=== PATIENT | male | born 1950 | race African-American/Black ===

== ENCOUNTER 2016-09-30 09:02 | Observation (INO) | payer MEDICARE, MEDICAID ==
[2016-09-30] MEDS ORDERED: Aspirin Low Dose CHEW TAB* 81 MG PO ONE (09:14)
--- NOTE | 2016-09-30 09:43 | RAD ---
INDICATION: Chest pain. COMPARISON: Comparison is made with a prior chest x-ray study from April 27, 2014. TECHNIQUE: A portable view of the chest was obtained. FINDINGS: The patient is status post coronary artery bypass surgery. The heart is within normal limits in size. The lungs are underinflated. There is a small infiltrate at the medial right lung base. No pleural effusion is seen. IMPRESSION: EXPIRATORY EXAM, SMALL RIGHT BASILAR INFILTRATE.
[2016-09-30 09:47] LABS: Hematocrit 34 % (42-52); Hemoglobin 11.1 g/dl (14.0-18.0); Mean Corpuscular HGB Conc 33 g/dl (31-36); Mean Corpuscular Hemoglobin 30 pg (27-31); Mean Corpuscular Volume 92 fL (80-94); Mean Platelet Volume 8 um3 (7.4-10.4); Red Blood Count 3.66 10^6/ul (4.0-5.4); Red Cell Distribution Width 15 % (10.5-15); White Blood Count 14.3 10^3/ul (3.5-10.8)
[2016-09-30 10:05] LABS: ALT 14 U/L (7-52); AST 25 U/L (13-39); Albumin 4.1 g/dL (3.2-5.2); Alkaline Phosphatase 50 U/L (34-104); Anion Gap 7 mmol/L (2-11); BUN/Creatinine Ratio 9.5 (8-20); Blood Urea Nitrogen 10 mg/dL (6-24); CO2 Carbon Dioxide 24 mmol/L (22-32); Calcium 9.5 mg/dL (8.6-10.3); Chloride 104 mmol/L (101-111); EGFR African American 91.2 (>60); EGFR Non-African American 70.9 (>60); Globulin 3.7 g/dL (2-4); Glucose 115 mg/dL (70-100); Potassium 3.4 mmol/L (3.5-5.0); Sodium 135 mmol/L (133-145); Total Protein 7.8 g/dL (6.4-8.9); Troponin I 0.01 ng/mL (<0.04)
--- NOTE | 2016-09-30 10:26 | RAD ---
INDICATION: Dizziness. COMPARISON: There are no prior studies available for comparison. TECHNIQUE: Contiguous axial sections of the brain were obtained from the skull base to the vertex without contrast. FINDINGS: The ventricles, cisterns and sulci are enlarged consistent with diffuse atrophy. There is mild decreased attenuation present in the subcortical white matter in the right temporal lobe insula. No other focal abnormalities or mass effect are seen. There is no evidence for hemorrhage. No significant focal osseous abnormality is seen. The visualized portion of the paranasal sinuses and mastoid air cells appear clear. IMPRESSION: SMALL AREA OF DECREASED DENSITY IN THE SUBCORTICAL WHITE MATTER IN THE RIGHT TEMPORAL LOBE INSULA MOST CONSISTENT WITH A SUBACUTE INFARCT OR CHRONIC SMALL VESSEL ISCHEMIC CHANGES. CONSIDER MR IMAGING FOR FURTHER EVALUATION.
[2016-09-30 11:02] LABS: Alcohol < 10 mg/dL (<10)
[2016-09-30] MEDS ORDERED: Acetaminophen TAB* 325 MG PO ONE (11:41)
[2016-09-30] MEDS ORDERED: Heparin VIAL(*) 5000 UNITS/ML VIAL (FIVE THOUSAND) ONE (14:03)
[2016-09-30] MEDS: Heparin VIAL(*) 5000 UNITS/ML VIAL (FIVE THOUSAND) SUBCUT SCH ×2 (14:20→21:13)
[2016-09-30] MEDS: Amoxicillin/Clavulanate TAB* 875 MG PO SCH ×2 (14:20→21:02)
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
[2016-09-30] MEDS ORDERED: Nicotine GUM* 2 MG PO PRN (16:54)
[2016-09-30] MEDS ORDERED: Nicotine Inhaler* 10 MG AMP INH PRN (16:54)
--- NOTE | 2016-09-30 17:28 | RAD ---
HISTORY: Subacute infarct noted on CT COMPARISONS: Head CT dated September 30, 2016 TECHNIQUE: The following sequences were obtained of the head: Sagittal T1-weighted images, axial T2-weighted images, axial FLAIR images, axial susceptibility weighted images, axial T1-weighted images. Additionally, axial diffusion-weighted images were obtained with calculated apparent diffusion coefficients. FINDINGS: HEMORRHAGE/INFARCT: There is no hemorrhage or acute infarct. MASSES/SHIFT: There is no mass or shift. EXTRA-AXIAL SPACES/MENINGES: There are no extra-axial fluid collections. SULCI AND VENTRICLES: The sulci and ventricles are normal in size and position for the patient's stated age. CEREBRUM: There is right frontal and insular encephalomalacia corresponding to the area of decreased attenuation noted on CT consistent with remote infarct. There are scattered foci of elevated T2/FLAIR signal in the periventricular and subcortical white matter. BRAINSTEM: There is elevated T2/FLAIR signal in the pontine white matter. CEREBELLUM: There are no focal parenchymal abnormalities. The cerebellar tonsils are normal in size and position. SELLA: The sella is normal. PINEAL: The pineal region is clear. CP ANGLE/TEMPORAL BONES: The labyrinthine structures are grossly normal. VESSELS: Normal flow-voids are noted within the visualized vertebral vasculature. DIFFUSION ABNORMALITIES: There are no diffusion abnormalities. PARANASAL SINUSES/MASTOIDS: The paranasal sinuses are clear. ORBITS: The orbits are unremarkable. BONES AND SOFT TISSUE: No bone or soft tissue abnormalities are noted. OTHER: None IMPRESSION: 1. 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 2. CHRONIC SMALL VESSEL ISCHEMIC CHANGES. 3. NO RESTRICTED DIFFUSION TO SUGGEST ACUTE OR SUBACUTE INFARCT.
[2016-09-30] MEDS ORDERED: LORazepam TAB(*) 1 MG PO SCH (18:00)
[2016-09-30] MEDS: Gabapentin CAP(*) 300 MG PO SCH (18:04)
[2016-09-30] MEDS: Nicotine PATCH 14 MG/24 HR* PATCH TRANSDERM SCH (18:04)
[2016-09-30 18:30] LABS: Urine Bilirubin Negative (Negative); Urine Glucose Negative (Negative); Urine Nitrite Negative (Negative)
[2016-09-30 18:38] LABS: Benzodiazepine Urine Screen None Detected (None Detect)
[2016-09-30] MEDS ORDERED: Gabapentin CAP(*) 300 MG PO SCH (21:00)
[2016-09-30] MEDS ORDERED: FLUoxetine CAP* 20 MG PO SCH (21:00)
[2016-09-30] MEDS ORDERED: Nortriptyline CAP* 25 MG PO SCH (21:00)
[2016-09-30] MEDS: Thiamine TAB* 100 MG TAB PO SCH (21:01)
[2016-09-30] MEDS: Folic Acid TAB* 1 MG PO SCH (21:07)
[2016-09-30] MEDS: busPIRone TAB* 10 MG PO SCH (21:07)
[2016-09-30 22:22] LABS: C Reactive Protein 6.72 mg/L (< 5.00)
[2016-10-01] MEDS: Heparin VIAL(*) 5000 UNITS/ML VIAL (FIVE THOUSAND) SUBCUT SCH ×2 (05:44→13:19)
[2016-10-01 06:34] LABS: Hematocrit 31 % (42-52); Hemoglobin 10.5 g/dl (14.0-18.0); Mean Corpuscular HGB Conc 34 g/dl (31-36); Mean Corpuscular Hemoglobin 31 pg (27-31); Mean Corpuscular Volume 91 fL (80-94); Mean Platelet Volume 8 um3 (7.4-10.4); Red Blood Count 3.39 10^6/ul (4.0-5.4); Red Cell Distribution Width 14 % (10.5-15); White Blood Count 8.5 10^3/ul (3.5-10.8)
[2016-10-01] MEDS: Nicotine PATCH 14 MG/24 HR* PATCH TRANSDERM SCH (08:23)
[2016-10-01] MEDS: Gabapentin CAP(*) 300 MG PO SCH ×2 (08:24→13:18)
[2016-10-01] MEDS: Folic Acid TAB* 1 MG PO SCH (08:25)
[2016-10-01] MEDS: busPIRone TAB* 10 MG PO SCH (08:25)
[2016-10-01] MEDS: Thiamine TAB* 100 MG TAB PO SCH (08:25)
[2016-10-01] MEDS ORDERED: Aspirin TAB* 325 MG PO SCH (09:00)
[2016-10-01] MEDS ORDERED: FLUoxetine CAP* 20 MG PO SCH (09:00)
[2016-10-01] MEDS ORDERED: Montelukast Sodium TAB* 10 MG PO SCH (09:00)
[2016-10-01] MEDS ORDERED: Multivitamins/Minerals TAB PO SCH (09:00)
--- NOTE | 2016-10-01 11:47 | RAD ---
Edited for charges. INDICATION: Chest pain, previous coronary artery bypass. Hypertension, elevated cholesterol, tobacco use. COMPARISON: March 22, 2015 TECHNIQUE: 10.160 mCi of Tc-99m Myoview were administered IV. SPECT images of the heart were obtained. Later on the same day, under the direction of Dr. Lane, the patient was given an IV injection of a pharmacologic stress agent. Subsequently, the patient was given an IV injection of 10.160 mCi Tc-99m Myoview. SPECT images of the heart were obtained and a gated wall motion study was performed. FINDINGS: Gated wall motion images were obtained at stress and demonstrate wall motion to be within normal limits. The calculated left ventricular ejection fraction is 49 % at stress. Estimated LEFT ventricular end diastolic volume is 97 mL. TID 1.12. Based on review of the attenuation corrected and non corrected images there is a grossly fixed myocardial perfusion defect involving the apex and apical anterior segments. No stress-induced reversible ischemia evident. IMPRESSION: 1. Small to moderate infarct involving the apex and apical anterior segments grossly unchanged in size compared with the 2015 exam however there is no persistent penumbra of reversible ischemia. 2. No stress-induced ischemia demonstrated. 3. Mild LEFT ventricular dysfunction with estimated ejection fraction of 49% with interval decrease from 55% previously.. ASSESSMENT: INTERMEDIATE RISK. Based on imaging criteria from ACC/AHA 2002 Guideline Update for the Management of Patients With Chronic Stable Angina Table 23. Noninvasive Risk Stratification. MTDD
[2016-10-01] MEDS ORDERED: Ketorolac INJ* 60 MG/2 ML VIAL IV PUSH ONE (12:24)
[2016-10-01] MEDS ORDERED: Regadenoson* 0.4 MG/5 ML SYRINGE ONE (12:31)
[2016-10-01] MEDS ORDERED: Ketorolac INJ* 30 MG/ML 1 ML VIAL IV ONE (13:00)
[2016-10-01 14:43] VITALS: BP 120/67
[2016-10-01] MEDS ORDERED: Lidocaine PATCH 5%* 1 PATCH TRANSDERM SCH (15:00)
[2016-10-01] MEDS ORDERED: Lidocaine Patch REMOVE* 1 NOTE MISC SCH (21:00)
[2016-10-01] MEDS ORDERED: Nicotine Patch Removal NOTE PATCH OFF SCH (21:00)
--- NOTE | 2016-10-02 03:26 | DS ---
DISCHARGE SUMMARY: DATE OF ADMISSION: 09/30/16 DATE OF DISCHARGE: 10/01/16 PRIMARY CARE PROVIDER: To be established is Dr. Bernal. DISCHARGING PROVIDER: ELIDA Cage SUPERVISING PHYSICIAN: DO Jennifer Wild (DICTATED BY ELIDA CAGE) PRIMARY DISCHARGE DIAGNOSES: 1. Chest pain with history of CABG - fixed defect appreciated on nuclear stress test without reversibility. 2. Alcohol and drug abuse - toxicology screen positive for cocaine and opioids. 3. Back pain - acute complaint, but a chronic finding. SECONDARY DISCHARGE DIAGNOSES: 1. History of hepatitis C, unsure of treatment history. 2. Hypertension. 3. Hyperlipidemia. 4. Anxiety and depression. DISCHARGE MEDICATIONS: 1. Fluoxetine 40 mg p.o. b.i.d. 2. Fluticasone nasal spray 2 sprays in both nostrils once daily. 3. Gabapentin 300 mg with breakfast and lunch and 600 mg at bedtime. 4. Lidocaine patch 5% to be placed transdermally once daily. 5. Mobic 15 mg p.o. daily. 6. Singulair 10 mg p.o. daily. 7. Nortriptyline 75 mg p.o. at bedtime. 8. Ranitidine 150 mg p.o. twice daily. 9. BuSpar 10 mg p.o. twice daily. Medication changes: 1. Start Lidoderm patch. HOSPITAL IMAGIN. Chest x-ray shows what appears to be an expiratory film, questionable small right basilar infiltrate. 2. CT of the brain shows small area of decreased density in the subcortical white matter in the right temporal lobe insulin most consistent with a subacute infarct or chronic small vessel ischemic changes. Recommend MRI for further imaging. 3. MRI of the brain shows right frontal encephalomalacia consistent with a remote infarct as well as chronic small vessel ischemic changes. No evidence of acute or subacute infarct. 4. Nuclear stress test shows a [id number] infarct at the apex and apical anterior segments unchanged in size from 2015 stress testing and no evidence of reversible ischemia. 5. EKG shows a right bundle branch block unchanged from prior with an underlying sinus rhythm. HOSPITAL COURSE: This is a 66-year-old gentleman with a history of coronary artery disease, status post CABG as well as a long history of drug and alcohol abuse as well as hepatitis C, hypertension, hyperlipidemia, anxiety and depression who is seen by Dr. Lane for cardiology care and was subsequently referred for an outpatient stress test due to recent complaints of intermittent chest pain. The patient arrived for his stress test and a clinical assessment team call was made from the admissions area as the patient was complaining of dizziness and feeling of presyncope. The patient admitted to using cocaine the night prior and sounds to be awake the majority of the night. Urine toxicology screen was positive for both cocaine and opioids. The patient was subsequently admitted to observation status with plans for stress test the following morning. Initial labs demonstrated a moderate leukocytosis with a white blood cell count of 14,300. Chemistries were unremarkable with the exception of mild hypokalemia with potassium of 3.4. Initial chest x-ray was of poor quality, but possibly suggestive of a small right basilar infiltrate. There was concern about possible aspiration pneumonia, but the patient was not complaining of any fevers, recent cough or shortness of breath. He received one dose of Augmentin. Initial CT scan of his brain was questionable for possible subacute infarct. Followup MRI demonstrated what was likely an old infarct and chronic small vessel ischemic changes, but nothing acute. Serial troponins remained negative. The patient underwent nuclear stress test, which showed an old fixed defect without any reversibility. No changes when compared to prior nuclear study from 2015. The patient did not complain of any chest pain during his hospital stay. The morning of discharge the patient began to complain of severe back pain. This is a chronic complaint for him. He does have documented stenosis on prior CT scan. He was able to ambulate into the hospital and was not complaining of back pain overnight and was ambulating to the bathroom without difficulty. The patient was requesting narcotic pain medications to help to control his pain. He was quite upset when these were denied to him due to evidence of polysubstance abuse. The patient was subsequently given an IV dose of Toradol as well as a lidocaine patch placed. Asked the Physical Therapy to please help with evaluating his ability to ambulate. He initially refused to work with Physical Therapy and later agreed but attempted to throw himself to the floor during evaluation. After thorough discussion with the patient in regards to the appropriateness of treating a chronic medical condition during an acute hospital stay, the patient eventually agreed to be discharged from the hospital. He was set up with a new primary care provider and was encouraged to discuss pain management further with that individual. Strongly advised against using narcotics for management of his back pain due to his obvious substance abuse history. The patient declined any need for substance abuse treatment or counseling. DISPOSITION: The patient is being discharged from the hospital to home. He has been set up with a new primary care provider. Appointment made for next week, 10/06/16, at [address] Bernal with the [facility]. Recommend followup imaging of his back including an MRI as well as referral to Pain Management as the patient may benefit from epidural injections or appropriate nerve blocks. No changes made to the patient's cardiac medications. Stress test was reviewed with press assistant and feeder, Dr. Lane, prior to discharge. ELIDA CAGE CC: Dr. Bernal; Dr. Lane* [id number]/[facility] #: [id number] MTDD
== END 2016-10-01 16:50 | disposition home or self-care (01) ==
LOC: ED 09:02 → MEDTELE 11:00
PROVIDERS: ADMIT Internal Medicine; ATTEND Hospitalist
DX: R07.9 Chest pain, unspecified (principal); Z95.1 Presence of aortocoronary bypass graft; F10.10 Alcohol abuse, uncomplicated; F11.10 Opioid abuse, uncomplicated; M54.9 Dorsalgia, unspecified; I10 Essential (primary) hypertension; I25.10 Atherosclerotic heart disease of native coronary artery without angina pectoris; F32.9 Major depressive disorder, single episode, unspecified; F41.9 Anxiety disorder, unspecified; Z79.899 Other long term (current) drug therapy; Z88.8 Allergy status to other drugs, medicaments and biological substances; F17.210 Nicotine dependence, cigarettes, uncomplicated
CPT/HCPCS: 36415; 70450; 70551; 71010; 78452; 80053; 80307; 80320; 81003; 83605; 84484; 85025; 86140; 93005; 93017; 96360; 96361; 96372; 99284; A9270-GY; A9502; G0378; G0480; G8978-GP-CM; G8979-GP-CI; G8980-GP-CM; J1644; J1885; J2785

== ENCOUNTER 2017-01-13 11:00 | Day surgery (SDC) | payer MEDICARE, MEDICAID ==
[~2017-01-13 11:00] MED LIST: Acetaminophen TAB* 325 MG PO PRN; Buffered Lidocaine 0.9% SYRIN* 5 ML/SYR SYRINGE INTRADERM ONE
[2017-01-13] MEDS ORDERED: Buffered Lidocaine 0.9% SYRIN* 5 ML/SYR SYRINGE ONE (12:50)
[2017-01-13] MEDS ORDERED: Lidocaine 2% EPI 1:200000 MPF* 20 ML VIAL ONE (13:34)
[2017-01-13] MEDS ORDERED: Neomycin/Polymy/Dex OPTH.SUSP* MAXITROL 0.1% 5 ML ONE (13:34)
[2017-01-13] MEDS ORDERED: Proparacaine 0.5% OPHTH.SOL* 15 ML BTL ONE (13:34)
[2017-01-13] MEDS ORDERED: Phenylephrine 2.5% OPTH.SOL* 2 ML BTL ONE (13:34)
[2017-01-13] MEDS ORDERED: Lidocaine 1% MPF* 2 ML VIAL ONE (13:34)
[2017-01-13] MEDS ORDERED: Flurbiprofen 0.03% OPTH.SOL* 2.5 ML BTL ONE (13:34)
[2017-01-13] MEDS ORDERED: acetaZOLAMIDE TAB* 250 MG ONE (13:34)
[2017-01-13] MEDS ORDERED: Povidone Iodine 5% OPTH* 30 ML BTL ONE (13:34)
[2017-01-13] MEDS ORDERED: Cyclopentolate 1% OPTH.SOL* 2 ML BTL ONE (13:34)
[2017-01-13] MEDS ORDERED: Midazolam* 1 MG/ML 2 ML VIAL (2 MG) ONE ×2 (13:48→14:08)
[2017-01-13 14:32] VITALS: BP 135/76
--- NOTE | 2017-01-14 02:37 | OP ---
DATE OF OPERATION: 01/13/17 - MERGED WITH [facility] DATE OF : 52 SURGEON: Korey Quiroz MD PREOPERATIVE DIAGNOSIS: Cataract, right eye. POSTOPERATIVE DIAGNOSIS: Cataract, right eye. OPERATIVE PROCEDURE: Phacoemulsification, right eye with IOL. DESCRIPTION OF PROCEDURE: The patient was brought to the operating room after being given 1/2% Alcaine with epinephrine drops in the preoperative area. The eye was prepped and draped in the usual sterile fashion. Sterile drape and eyelid speculum were placed. Again, topical 1/2% Alcaine with epinephrine was given. A paracentesis incision was made at the 9 o'clock position with the No.75 blade. Clear cornea incision 2.2 x 2.2-mm was created at the 12 o'clock position starting at the anterior limbus using the 2.2-mm keratome. The anterior chamber was irrigated with 0.4 mL of 1% non-preservative intracameral lidocaine and filled with DisCoVisc. A capsulorrhexis was completed using the cystotome and the Utrata forceps. Hydrodissection was performed with balanced salt solution. The lens nucleus was removed with the Phacoemulsification handpiece without incident. Cortex was removed with the irrigation-aspiration handpiece. The capsular bag was re-inflated using DisCoVisc and an [id number] implant was inserted with the shooter. Pupil was only 3 mm, so a Malyugin ring was used to dilate the pupil prior to capsulorrhexis, removed after insertion of the lens. The irrigation-aspiration handpiece was used to remove all residual DisCoVisc. The eye was refilled with balanced salt solution and the wound checked and found to be watertight. Topical Maxitrol drops were given. Indication for complex cataract surgery: Iris abnormalities requiring pupil dilation device. [id number]/[facility] #: [id number] [facility] CENTERRoel
== END 2017-01-13 14:46 | disposition home or self-care (01) ==
LOC: OREAST 11:00
PROVIDERS: ATTEND Specialist
DX: H25.811 Combined forms of age-related cataract, right eye (principal); Q13.2 Other congenital malformations of iris; I10 Essential (primary) hypertension; Z95.1 Presence of aortocoronary bypass graft; F17.210 Nicotine dependence, cigarettes, uncomplicated; D64.9 Anemia, unspecified; B19.20 Unspecified viral hepatitis C without hepatic coma
CPT/HCPCS: A9270-GY; J2250; V2632

== ENCOUNTER 2017-01-20 13:15 | Day surgery (SDC) | payer OTHER, MEDICAID ==
[2017-01-20] MEDS ORDERED: Neomycin/Polymy/Dex OPTH.SUSP* MAXITROL 0.1% 5 ML ONE (15:01)
[2017-01-20] MEDS ORDERED: Phenylephrine 2.5% OPTH.SOL* 2 ML BTL ONE (15:01)
[2017-01-20] MEDS ORDERED: Cyclopentolate 1% OPTH.SOL* 2 ML BTL ONE (15:01)
[2017-01-20] MEDS ORDERED: Lidocaine 1% MPF* 2 ML VIAL ONE (15:01)
[2017-01-20] MEDS ORDERED: Povidone Iodine 5% OPTH* 30 ML BTL ONE (15:01)
[2017-01-20] MEDS ORDERED: Flurbiprofen 0.03% OPTH.SOL* 2.5 ML BTL ONE (15:01)
[2017-01-20] MEDS ORDERED: acetaZOLAMIDE TAB* 250 MG ONE (15:01)
[2017-01-20] MEDS ORDERED: Buffered Lidocaine 0.9% SYRIN* 5 ML/SYR SYRINGE ONE (15:02)
[2017-01-20] MEDS ORDERED: Proparacaine 0.5% OPHTH.SOL* 15 ML BTL ONE (15:02)
[2017-01-20] MEDS ORDERED: Lidocaine 1.5% EPI 1:200,000* 30 ML SDV ONE (15:02)
[2017-01-20] MEDS ORDERED: Midazolam* 1 MG/ML 2 ML VIAL (2 MG) ONE (15:22)
[2017-01-20 16:09] VITALS: BP 136/76
--- NOTE | 2017-01-21 13:10 | OP ---
OPERATIVE REPORT:* ADDENDUM: The indication for complex cataract surgery was pupillary abnormalities requiring a pupil dilation device. [id number]/[facility] #: [id number] MTDD
--- NOTE | 2017-01-21 13:10 | OP ---
ADDENDUM NOW INCLUDED ON THIS REPORT DATE OF OPERATION: 01/20/17 - [facility] DATE OF : 52 SURGEON: Korey Quiroz M.D. PREOPERATIVE DIAGNOSIS: Cataract, left eye. POSTOPERATIVE DIAGNOSIS: Cataract, left eye. OPERATIVE PROCEDURE: Phacoemulsification, left eye with IOL. DESCRIPTION OF PROCEDURE: The patient was brought to the operating room after being given 1/2% Alcaine with epinephrine drops in the preoperative area. The eye was prepped and draped in the usual sterile fashion. Sterile drape and eyelid speculum were placed. Again, topical 1/2% Alcaine with epinephrine was given. A paracentesis incision was made at the 3 o'clock position with the No.75 blade. Clear cornea incision 2.2 x 2.2-mm was created at the 6 o'clock position starting at the anterior limbus using the 2.2-mm keratome. The anterior chamber was irrigated with 0.4 mL of 1% non-preservative intracameral lidocaine and filled with DisCoVisc. A capsulorrhexis was completed using the cystotome and the Utrata forceps. Hydrodissection was performed with balanced salt solution. The lens nucleus was removed with the Phacoemulsification handpiece without incident. Cortex was removed with the irrigation-aspiration handpiece. The capsular bag was re-inflated using DisCoVisc and an [id number] implant was inserted with the shooter. Malyugin ring was used to dilate the pupil because the pupil was very small prior to capsulorrhexis, removed after insertion of lens. The irrigation-aspiration handpiece was used to remove all residual DisCoVisc. The eye was refilled with balanced salt solution and the wound checked and found to be watertight. Topical Maxitrol drops were given. ADDENDUM: The indication for complex cataract surgery was pupillary abnormalities requiring a pupil dilation device. [id number]/[facility] #: [id number] - [id number]/[facility] #: [id number] [facility]PITALRoel
== END 2017-01-20 14:20 | disposition home or self-care (01) ==
LOC: OREAST 13:15
PROVIDERS: ATTEND Specialist
DX: H25.812 Combined forms of age-related cataract, left eye (principal); Z96.1 Presence of intraocular lens; F32.9 Major depressive disorder, single episode, unspecified; K21.9 Gastro-esophageal reflux disease without esophagitis; F41.9 Anxiety disorder, unspecified; R20.0 Anesthesia of skin; I10 Essential (primary) hypertension; J45.909 Unspecified asthma, uncomplicated; F17.210 Nicotine dependence, cigarettes, uncomplicated; M54.9 Dorsalgia, unspecified; G89.29 Other chronic pain; I25.10 Atherosclerotic heart disease of native coronary artery without angina pectoris; Z85.048 Personal history of other malignant neoplasm of rectum, rectosigmoid junction, and anus; Z86.73 Personal history of transient ischemic attack (TIA), and cerebral infarction without residual deficits; Z88.5 Allergy status to narcotic agent; Z95.1 Presence of aortocoronary bypass graft
CPT/HCPCS: A9270-GY; J2250; V2632

== ENCOUNTER 2017-08-10 08:11 | Observation (INO) | payer MEDICARE, MEDICAID ==
--- NOTE | 2017-07-23 16:46 | RAD ---
INDICATION: Presurgical chest x-ray in a smoker COMPARISON: Chest x-ray dated September 30, 2006 TECHNIQUE: PA and lateral views of the chest were obtained. FINDINGS: The heart and mediastinum are normal in size and contour. The lungs are grossly clear. There is no evidence of large pleural effusion. Visualized bones are normal for the patient's age. There is no radiographic evidence of free air beneath the diaphragm IMPRESSION: No radiographic evidence of acute cardiopulmonary disease.
[~2017-08-10 08:11] MED LIST changes: -Acetaminophen TAB* 325 MG PO PRN
[2017-08-10] MEDS ORDERED: Buffered Lidocaine 0.9% SYRIN* 5 ML/SYR SYRINGE ONE (08:24)
[2017-08-10] MEDS ORDERED: ceFAZolin 2 GM PREMIX (*) 2 GM/50 ML BAG IVPB ONE (08:24)
[2017-08-10] MEDS ORDERED: Lidocaine 1% MPF wEPI 200,000* 30 ML SDV ONE (10:00)
[2017-08-10] MEDS ORDERED: Ondansetron INJ* 2 MG/ML VIAL IV PRN ×2 (10:01→12:45)
[2017-08-10] MEDS ORDERED: Thrombin 5,000 UNITS* 1 APPLIC KIT - topical use - TOPICAL ONE (10:01)
[2017-08-10] MEDS ORDERED: Levalbuterol 0.63MG/3ML NEB* UNIT OF USE INH PRN (10:01)
[2017-08-10] MEDS ORDERED: Naloxone* 0.4 MG/ML 1 ML VIAL IV PRN (10:01)
[2017-08-10] MEDS ORDERED: fentaNYL* 50 MCG/ML 2 ML VIAL (100 MCG VIAL) IV PRN (10:01)
[2017-08-10] MEDS ORDERED: Acetaminophen TAB* 325 MG PO PRN (10:01)
[2017-08-10] MEDS ORDERED: Bacitracin IV* 50,000 UNITS INJ ONE (10:01)
[2017-08-10] MEDS ORDERED: Famotidine IV* 10 MG/ML 2 ML (20 mg) ONE (10:05)
[2017-08-10] MEDS ORDERED: Midazolam* 1 MG/ML 2 ML VIAL (2 MG) ONE (10:05)
[2017-08-10] MEDS ORDERED: fentaNYL* 50 MCG/ML 2 ML VIAL (100 MCG VIAL) ONE ×2 (10:05→13:49)
[2017-08-10] MEDS ORDERED: Rocuronium* 10 MG/ML VIAL ONE (11:12)
[2017-08-10] MEDS ORDERED: Lidocaine 2% PF * 5 ML VIAL ONE (11:42)
[2017-08-10] MEDS ORDERED: Ondansetron INJ* 2 MG/ML VIAL ONE (11:42)
[2017-08-10] MEDS ORDERED: Dexamethasone IV* 4 MG/ML 1 ML (4 MG) ONE (11:42)
[2017-08-10] MEDS ORDERED: Propofol* 10 MG/ML 20 ML BTL IV PUSH ONE (11:42)
[2017-08-10] MEDS ORDERED: Magnesium Hydroxide LIQ* 30 ML UDC PO PRN (12:45)
[2017-08-10] MEDS ORDERED: Albuterol HFA INHALER* 8 gm MDI INH PRN (12:48)
[2017-08-10] MEDS ORDERED: Levalbuterol 0.63MG/3ML NEB* UNIT OF USE INH ONE (13:21)
--- NOTE | 2017-08-10 15:12 | RAD ---
HISTORY: Decompressive laminectomy COMPARISONS: MRI dated October 30, 2016 VIEWS: 1 , portable intraoperative view of the lumbar spine at 11:40 AM FINDINGS: A single portable intraoperative view of lumbar spine performed at 11:40 AM demonstrates a metallic probe opposite of L3-L4 counting from L5 as the last lumbar type vertebral body. IMPRESSION: LIMITED PORTABLE VIEW OF THE SPINE FOR LOCALIZATION DURING SPINAL SURGERY.
[2017-08-10] MEDS: Gabapentin CAP(*) 300 MG PO SCH ×2 (15:23→21:40)
[2017-08-10] MEDS: busPIRone TAB* 15 MG PO SCH ×2 (16:49→21:40)
[2017-08-10] MEDS: HYDROcodone/ACETAMIN 5-325 MG* 1 TAB PO PRN ×2 (17:24→21:40)
--- NOTE | 2017-08-10 20:19 | CONS ---
ADDENDUM NOW INCLUDED ON THIS REPORT CONSULTATION REPORT: DATE OF CONSULT: 08/10/17 REASON FOR CONSULTATION: Medical co-management. CHIEF COMPLAINT: Postop day 0 decompressive lumbar laminectomy. HISTORY OF PRESENT ILLNESS: This is a 67-year-old man with an extensive past medical history who is admitted today for a decompressive lumbar laminectomy. He is seen postop in his room and is feeling well. His pain is controlled and he has no complaints. PAST MEDICAL HISTORY: Spinal stenosis, HCV that has been treated, CAD status post CABG, right bundle branch block, hypertension, anxiety/depression, neuropathy and COPD. HOME MEDICATIONS: Note this list is from his PCP's office. 1. Nitroglycerin 0.3 sublingual p.r.n. pain. 2. Aspirin 81 mg daily. 3. Gabapentin 300 mg in the morning, 300 mg in the afternoon and 600 mg at night. 4. Montelukast 10 mg daily. 5. Ranitidine 150 mg twice a day. 6. Fluticasone 50 mcg 2 sprays in each nostril daily. 7. Buspirone 15 mg twice a day. 8. Nortriptyline 75 mg q.h.s. 9. Fluoxetine 80 mg daily. 10. Multivitamin daily. 11. Zanaflex 4 mg b.i.d. p.r.n. 12. ProAir 2 puffs q.4 p.r.n.. FAMILY HISTORY: Positive for coronary artery disease. SOCIAL HISTORY: He quit smoking. He denies alcohol or drug use. 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 REVIEW OF SYSTEMS: He denies chest pain, shortness of breath, palpitations, nausea or vomiting. He does note some low back pain at the site of the incision. He also has numbness and tingling in both toes. PHYSICAL EXAMINATION: General: Alert, oriented, well-appearing man in no distress. Vital Signs: Temperature 98.2, heart rate 90, respiratory rate 18, pulse ox 100% on room air, blood pressure 143/81. HEENT: Pupils equal, round, and reactive to light. No nystagmus. Extraocular movements intact. Moist mucosa. No pharyngeal exudates or erythema. Neck: No JVP. No cervical adenopathy. Chest: Regular rate and rhythm. No murmurs. PMI nondisplaced. Lungs: Clear bilaterally. Abdomen: Soft, nontender, nondistended. Bowel sounds normoactive. Back: Midline incision is clean, dry and intact. Extremities: Strength is 5+; however, sensation is diminished in the plantar and dorsal surfaces of both feet. LABORATORY DATA: Random blood glucose is 260. ASSESSMENT AND PLAN: This is a 67-year-old man with extensive past medical history who was admitted today for an elective lumbar laminectomy. 1. Postop day #0 from lumbar laminectomy L3-L4, L4-L5. Continue management per Neurosurgery. His pain is well controlled at this time. 2. Undiagnosed diabetes. His random blood glucose of 260 this afternoon is diagnostic of type 2 diabetes. I am checking a hemoglobin A1c and we will reassess the most appropriate medical management for diabetes. I have not discussed the finding with him yet, but will after his A1c returns. 2. Coronary artery disease, status post CABG. He is not on the appropriate regimen for coronary artery disease. He takes aspirin 81 mg daily, which is appropriate. However, he should also be on a beta-randy and statin. I discussed this with him and he does not know why he is not and he does not recall ever having an allergic reaction to either medication. I am adding a statin and a beta-randy for him. He has no chest pain at this time. 3. History of hepatitis C virus. He reports that this was treated and is in remission. No need to check liver function studies. 4. Neuropathy. This was reported to be idiopathic; however, with a new diagnosis of diabetes, this may be the etiology of his neuropathy. Continue gabapentin. 5. Hypertension. His blood pressure is poorly controlled at this time; however , I suspect that is most likely related to pain. I am starting a beta-randy for his coronary artery disease and if this does not improve his blood pressure , an KELLY inhibitor should be considered if he has microalbuminuria. 6. Anxiety and depression. Continue buspirone, nortriptyline and fluoxetine. I would avoid QT prolonging medications with this combination of meds. Thank you for allowing us to participate in the care of this patient. We will follow along with you. ADDENDUM: The results of Mr. Beasley' hemoglobin A1c have returned at 5.1. This excludes the diagnosis of diabetes. I suspect that the random blood glucose was drawn from a line where D5 was running. There is no followup needed for this hemoglobin A1c. [id number]/[facility] #: [id number] A- [id number]/[facility] #: [id number] [facility] HOSPITALRoel
[2017-08-10] MEDS: Nortriptyline CAP* 25 MG PO SCH (21:39)
[2017-08-10] MEDS: Atorvastatin* 20 MG TAB PO SCH (21:39)
[2017-08-10] MEDS: Metoprolol Tartrate TAB* 25 MG PO SCH (21:40)
[2017-08-11] MEDS: Famotidine TAB* 20 MG PO PRN ×2 (00:36→07:42)
[2017-08-11] MEDS: HYDROcodone/ACETAMIN 5-325 MG* 1 TAB PO PRN ×5 (01:45→21:18)
[2017-08-11] MEDS ORDERED: Ibuprofen TAB* 800 MG PO PRN (07:15)
[2017-08-11] MEDS: Gabapentin CAP(*) 300 MG PO SCH ×3 (07:56→20:40)
[2017-08-11] MEDS: busPIRone TAB* 15 MG PO SCH ×3 (07:56→21:18)
[2017-08-11] MEDS: FLUoxetine CAP* 20 MG PO SCH (07:56)
[2017-08-11] MEDS: Metoprolol Tartrate TAB* 25 MG PO SCH ×2 (07:57→20:40)
--- NOTE | 2017-08-11 08:12 | PN ---
Progress Note - Progress Note Date of Service: 08/11/17 SOAP: Subjective: [S/p decompressive lumbar laminectomy L3-4 and L4-5, POD#1. Complains of low back incisional pain this morning. Pre-op LEs pain with ambulation resolved. Also complains of some anxiety this morning. Denies headache and nausea. ] Objective: [ Vital Signs: Temp Pulse Resp BP Pulse Ox 98.1 F 84 18 112/58 100 08/11/17 07:35 08/11/17 07:35 08/11/17 07:59 08/11/17 07:35 08/11/17 07:35 General: Alert and oriented. Sitting up in chair. Neuro: Motor and sensory intact. Incision: Dressing intact. Wound drain in place and functioning. No swelling of incision. Mild tenderness. Extremities: Full ROM. Wound drain output 08/10/17 08/10/17 08/10/17 15:39 17:56 21:14 Output, YUDITH #1 60 30 70 08/11/17 04:14 Output, YUDITH #1 60 ] Assessment: [Satisfactory post-op course. Wound drain continues to collect large volume of fluid and will remain in place.] Plan: [1. Admit to inpatient. 2. Continue pain management; add ibuprofen. 3. Encourage ambulation. 4. PT evaluation today. ]
[2017-08-11] MEDS: Famotidine TAB* 20 MG PO SCH (08:14)
[2017-08-11] MEDS: Nortriptyline CAP* 25 MG PO SCH (20:39)
[2017-08-11] MEDS: Atorvastatin* 20 MG TAB PO SCH (20:40)
--- NOTE | 2017-08-11 23:06 | CONS ---
CONSULTATION NOTE: ADDENDUM: The results of Mr. Beasley' hemoglobin A1c have returned at 5.1. This excludes the diagnosis of diabetes. I suspect that the random blood glucose was drawn from a line where D5 was running. There is no followup needed for this hemoglobin A1c. [id number]/[facility] #: [id number] [facility] HEALTHRoel
[2017-08-12] MEDS: HYDROcodone/ACETAMIN 5-325 MG* 1 TAB PO PRN ×4 (04:20→19:07)
--- NOTE | 2017-08-12 08:07 | PN ---
Progress Note - Progress Note Date of Service: 08/12/17 SOAP: Subjective: [Patient seen and evaluated this morning 0800 and this after noon 1620. S/p decompressive lumbar laminectomy L3-4 and L4-5, POD #2. Patient is feeling well this morning and this afternoon. Pain controlled with PO pain medications. Lower extremity pain with ambulation resolved. Denies headache and nausea.] Objective: [ Vital Signs: Temp Pulse Resp BP Pulse Ox 98.2 F 73 16 120/64 100 08/12/17 03:42 08/12/17 03:42 08/12/17 05:51 08/12/17 03:42 08/12/17 03:42 General: Alert and oriented. Sitting up in chair. Neuro: Motor and sensory intact. Incision: Without swelling. Intact with jorden. Wound drain in place and functioning. Extremities: Full ROM. Wound drain output 08/10/17 08/10/17 08/10/17 15:39 17:56 21:14 Output, YUDITH #1 60 30 70 08/11/17 08/11/17 08/11/17 04:14 08:00 17:07 Output, YUDITH #1 60 30 20 08/11/17 08/11/17 08/12/17 20:08 23:35 06:00 Output, YUDITH #1 20 30 10 08/12/17 08/12/17 08:37 10:54 Output, YUDITH #1 40 20 ] Assessment: [Satisfactory post-op. Pain well controlled. Wound drain continues to collect large volume of fluid; will require further monitoring. ] Plan: [1. Wound drain requires further monitoring and therefore pt will remain admitted. 2. Continue pain management. 3. Encourage ambulation. ]
[2017-08-12] MEDS: Famotidine TAB* 20 MG PO SCH (08:26)
[2017-08-12] MEDS: Gabapentin CAP(*) 300 MG PO SCH ×3 (08:27→20:51)
[2017-08-12] MEDS: Metoprolol Tartrate TAB* 25 MG PO SCH (08:27)
[2017-08-12] MEDS: FLUoxetine CAP* 20 MG PO SCH (08:27)
[2017-08-12] MEDS: busPIRone TAB* 15 MG PO SCH ×3 (08:27→20:51)
[2017-08-12 09:56] LABS: Hematocrit 33 % (42-52); Hemoglobin 10.7 g/dl (14.0-18.0); Mean Corpuscular HGB Conc 33 g/dl (31-36); Mean Corpuscular Hemoglobin 31 pg (27-31); Mean Corpuscular Volume 96 fL (80-94); Mean Platelet Volume 8 um3 (7.4-10.4); Platelet Count 239 10^3/ul (150-450); Red Blood Count 3.44 10^6/ul (4.0-5.4); Red Cell Distribution Width 15 % (10.5-15); White Blood Count 12.5 10^3/ul (3.5-10.8)
[2017-08-12 10:09] LABS: EGFR Non-African American 83.4 (>60)
[2017-08-12 11:03] LABS: ABS Basophils 0.1 10^3/ul (0-0.2); ABS Eosinophils 0.4 10^3/ul (0-0.6); ABS Lymphocytes 4.4 10^3/ul (1.0-4.8); ABS Monocytes 0.9 10^3/ul (0-0.8); ABS Neutrophils 6.7 10^3/ul (1.5-7.7); ABS Nucleated RBC 0 10^3/ul; Eosinophil % 3.3 % (0-6); Lymphocyte % 35.4 % (25-47); Nucleated Red Blood Cells % 0
[2017-08-12] MEDS: Calcium Carbonate CHEW TAB* 500 MG (TUMS) PO PRN ×2 (11:13→20:54)
--- NOTE | 2017-08-12 16:10 | CONS ---
CC: Dr. Lane; Dr. Bernal; Dr. Mckinley; Dr. Prado ADDENDUM: Addendum to a consultation that was originally dictated by Dr. Vianey Lang. FOLLOWUP CONSULTATION REPORT: DATE OF CONSULTATION: The followup occurred on 08/12/17. CHIEF COMPLAINT: Lower back pain. HISTORY OF PRESENT ILLNESS: Korey Beasley is a 67-year-old male with history of cardiac disease stat us post bypass 5 years ago, who is status post lumbar laminectomy on 08/10/17. Seen today for a followup, the patient feels well. His bilateral lower extremity pain that was prese nt before the surgery disappeared. He still has some lower lumbar pain in the postoperative area. H is balance is slightly unsteady and he stated that he is getting "reacquainted" with getting his ny nce back. As per physical therapy notes, patient was to be assisted with ambulation but otherwise do ing well. CURRENT MEDICATIONS: Included: 1. Atorvastatin 20 mg. 2. BuSpar 15 mg 3 times a day. 3. Albuterol on a p.r.n. basis. 4. Pepcid 20 mg daily. 5. Fluoxetine 80 mg daily. 6. Gabapentin 300 mg at 8 a.m. and 2 p.m. and 600 mg at bedtime. 7. Hydrocodone with acetaminophen 2 tablets every 4 hours p.r.n. 8. Motrin 800 mg every 8 hours p.r.n. intravenous fluids with Lactated Ringer. 9. Metoprolol tartrate 12.5 mg every 12 hours. 10. Nortriptyline 75 mg at bedtime. 11. Zofran on a p.r.n. basis. PHYSICAL EXAMINATION: Blood pressure 110/60, heart rate of 75 and regular, respiratory rate 16, oxyg en saturation 100% on room air, temperature 97.1. General: The patient is a very pleasant 67-year-ol d male, who is in no acute distress. Alert, awake, and oriented x3. HEENT: Head atraumatic, normoc ephalic. Eyes: Pupils are equal, reactive to light and accommodation. Oropharynx clear. Mucosa mois t. Neck: Supple. No JVD, no bruits bilaterally. Cardiovascular: Regular rate and rhythm. No murm ur. Respiratory: Clear to auscultation bilaterally. Abdomen: Soft, nontender. Bowel sounds are p resent in all 4 quadrants. Extremities: There is no edema. Pulses +2 bilaterally. No clubbing or cyanosis. On evaluation of the back, patient has postoperative dressing applied over the lumbar area with YUDITH drain present draining very scant amount of serosanguineous fluid. There was no evidence of surrounding area of ecchymosis or cellulitis. Neuro Evaluation: Speech clear. Cranial nerves II t hrough XII grossly intact. Motor strength is 5/5 bilaterally. LABORATORY DATA: Shows random glucose of 216, hemoglobin A1c is 5.1. Basic metabolic panel with CBC is pending at the time of dictation. ASSESSMENT AND PLAN: 1. Status post lumbar laminectomy. This is as per Neurology service. 2. In regards to the patient's history of coronary artery disease, status post bypass. The patient' s aspirin is currently held postoperatively and is to be restarted once it is okay with Neurosurgery. 3. For his chronic neuropathic pain, the patient is to be continued on ibuprofen and gabapentin as p reviously taken. 4. For his hypertension, I agree with Dr. Lang from the initial consultation report that the savannah ent should be considered for beta randy treatment. Nevertheless, the patient has his manufacturing manager, Dr. Lane and his primary care provider Dr. Bernal, who could address it on an outpatient basis. I do not believe it is necessary for the patient to be switched from one medication to the other, whi ch would be from Norvasc to metoprolol in the immediate postoperative period. The patient is to be re started on Norvasc once back home and following with his primary care provider. At this point, I donte l discontinue the patient's metoprolol although once again it is a good consideration and is to be di scussed with the patient by his primary care provider and his manufacturing manager on routine followup. 5. In regards to possibility of hyperlipidemia in a patient with history of coronary artery disease, the patient is not allergic to statins. He is not sure why he is not on one. Once again, the patie nt has his manufacturing manager, Dr. Lane and his primary care provider who probably will address that w ith the patient at a followup visit. At this point, I do not believe it is needed or necessary to st art the patient on statin in the immediate postoperative period. Thank you very much for allowing me to see your patient in followup consultation. We will see the pat ient on a p.r.n. basis and sign off for the time being. [id number]/[facility] #: [id number]
[2017-08-12] MEDS: Nortriptyline CAP* 25 MG PO SCH (20:53)
[2017-08-13] MEDS: HYDROcodone/ACETAMIN 5-325 MG* 1 TAB PO PRN ×2 (00:31→07:57)
[2017-08-13] MEDS: Gabapentin CAP(*) 300 MG PO SCH (07:56)
[2017-08-13] MEDS: Famotidine TAB* 20 MG PO SCH (07:57)
[2017-08-13] MEDS: busPIRone TAB* 15 MG PO SCH (07:57)
[2017-08-13] MEDS: FLUoxetine CAP* 20 MG PO SCH (07:57)
--- NOTE | 2017-08-13 08:08 | PN ---
Progress Note - Progress Note Date of Service: 08/13/17 SOAP: Subjective: [S/p decompressive lumbar laminectomy L3-4, L4-5, POD#3. Patient is feeling well this morning although complains of low back soreness. Lower extremities are without pain. Ambulating well. Denies headache, nausea, vomiting. ] Objective: [ Vital Signs: Temp Pulse Resp BP Pulse Ox 98.5 F 73 18 129/61 99 08/13/17 04:02 08/13/17 04:02 08/13/17 07:57 08/13/17 04:02 08/13/17 04:02 General: Alert and oriented. Sitting up in chair. Neuro: Motor and sensory intact. Incision: Intact with jorden. No swelling. Wound drain discontinued today. Wound drain output 08/10/17 08/10/17 08/10/17 15:39 17:56 21:14 Output, YUDITH #1 60 30 70 08/11/17 08/11/17 08/11/17 04:14 08:00 17:07 Output, YUDITH #1 60 30 20 08/11/17 08/11/17 08/12/17 20:08 23:35 06:00 Output, YUDITH #1 20 30 10 08/12/17 08/12/17 08/12/17 08:37 10:54 20:55 Output, YUDITH #1 40 20 60 08/13/17 00:29 Output, YUDITH #1 15 ] Assessment: [Satisfactory post-op. Pain well controlled with PO pain medications.] Plan: [1. Discharge home today. 2. Discharge instructions provided and discussed. ]
[2017-08-13 08:13] VITALS: BP 123/61
--- NOTE | 2017-08-14 13:27 | DS ---
DISCHARGE SUMMARY: DATE OF ADMISSION: 08/10/17 DATE OF DISCHARGE: 08/13/17 ATTENDING PHYSICIAN: Dr. Mckinley.* (DICTATED BY ELIDA KUMAR) DISCHARGE DIAGNOSES: 1. Lumbar spinal stenosis. 2. Coronary artery disease. 3. Chronic obstructive pulmonary disease. 4. Hypertension. SPECIAL PROCEDURES: Decompressive lumbar laminectomy, L3-4 and L4-5. HOSPITAL COURSE: This 67-year-old male was seen in office with a symptomatic lumbar stenosis for the previous several years. He had undergone multiple treatments and medications without improvement. MRI of the lumbar spine was obtained and he was referred for neurosurgical evaluation. Treatment with elective surgery was discussed with the patient and he decided to proceed with this option. On the day of admission, he was taken to surgery where under general anesthesia, a decompressive lumbar laminectomy at L3-4 and L4-5 operation was carried out. Postoperatively, the hospital medicine team was consulted for co-management of other medical conditions including the coronary artery disease and hypertension. Postoperatively, he was feeling well. The lower extremity symptoms with ambulation was resolved. He complained of low back soreness and incisional pain, which was well controlled with oral pain medications. The wound drain continued to collect a large volume of fluid and was therefore left in place for an additional 2 days. On the third postoperative day, he continued to feel well, although the low back pain persisted. He did not require IV pain medications. He was ambulating with assistance and using his cane. He was eating, drinking, and voiding without difficulty. On the third postoperative day, the wound drain had flowed and was therefore discontinued. He was discharged home to the care of his family. DISCHARGE MEDICATIONS: [place] 5/325 mg 1 to 2 tabs by mouth every 4 hours as needed for pain. DISCHARGE INSTRUCTIONS: Activity level and wound care were discussed with the patient and information on this was provided. FOLLOWUP: The patient will be seen in the office in approximately 10 days for a followup and staple removal. ELIDA KUMAR [id number]/[facility] #: [id number] MTDD
--- NOTE | 2017-08-27 13:11 | OP ---
DATE OF OPERATION: 08/10/17 - ROOM #342 DATE OF : 52 PRIMARY SURGEON: Dr. Erik Mckinley. TOWER CRANE OPERATOR: ELIDA Casanova ANESTHESIA: General. PRE-OP DIAGNOSIS: Lumbar spinal stenosis L3-L4, L4-L5. POST-OP DIAGNOSIS: Lumbar spinal stenosis L3-L4, L4-L5. OPERATIVE PROCEDURE: Decompressive lumbar laminectomy L3-L4, L4-L5 with foraminotomies L3-L4, L4-L5 bilaterally. DESCRIPTION OF PROCEDURE: After satisfactory general anesthesia was obtained, the patient was placed on the operating room table in a prone position with his chest supported on the Paul frame and the back slightly flexed. The lumbar region was then clipped, prepped and draped in a sterile manner for a lumbar laminectomy and a skin incision outlined from L3 to L4. This incision was infiltrated with 1% Xylocaine with epinephrine after which it was turned down sharply to the level of the lumbar fascia. The fascia was divided along the spinous processes from L3 to L5 and the paraspinous musculature stripped away from these posterior elements utilizing the periosteal elevator and monopolar cautery. An intraoperative x-ray was obtained verifying proper interspace localization after which a decompressive laminectomy was carried out initially at the L3-L4 level by removing the inferior aspect of the spinous process of L3 and the superior aspect of L4 with a combination of the Susan merchandise distributor and [place] rongeur. The decompression was carried superiorly until the attachment of the ligamentum flavum was taken down. The ligament was noted to be thickened and there was also bony hypertrophy contributing to lateral recess stenosis at this level. Additional lateral exposure was obtained and the decompression carried inferiorly until both L4 nerve roots were noted to be free in their course. A generous foraminotomy was carried out over both L4 nerve roots. Attention was then directed to the L4-L5 level where a similar decompression was carried out. The inferior aspect of the spinous process of L4 and superior aspect of the spinous process of L5 was thinned out with the Midas Bautista drill and a decompression carried out. The pathology at this level was again noted to be thickened ligamentum flavum as well as bony hypertrophy contributing to the lateral recess stenosis. A generous foraminotomy was then carried out over both L5 nerve roots as well. After assuring adequate hemostasis, the wound was thoroughly irrigated after which a piece of Gelfoam was placed over the laminectomy defect. The fascia was then reapproximated with 0 Vicryl suture, the subcutaneous tissue was closed with 3-0 Vicryl suture and the skin closed with skin clips. The estimated blood loss was less than 50 cc and the final sponge, padding, and needle counts were correct. The patient was taken to the recovery room, extubated, and in stable condition. [id number]/[facility] #: [id number] NISSA
== END 2017-08-13 11:40 | disposition home or self-care (01) | DRG 517 ==
LOC: OR 08:11 → SSU 12:45 → OBSVTOIN 12:45 → INTOOBSV 12:45 → OBSVTOIN 08-11 07:14
PROVIDERS: ADMIT Neurological Surgery; ATTEND Neurological Surgery
DX: M48.061 Spinal stenosis, lumbar region without neurogenic claudication (principal); I25.10 Atherosclerotic heart disease of native coronary artery without angina pectoris; J44.9 Chronic obstructive pulmonary disease, unspecified; I10 Essential (primary) hypertension; Z95.1 Presence of aortocoronary bypass graft; F41.9 Anxiety disorder, unspecified; F32.9 Major depressive disorder, single episode, unspecified; G62.9 Polyneuropathy, unspecified; Z79.82 Long term (current) use of aspirin; Z87.891 Personal history of nicotine dependence
CPT/HCPCS: 36415; 71046; 72100; 80048; 83036; 85025; 93005; 96374; 96375; 99282; A9270-GY; G0378; J0690; J1100; J2001; J2250; J2405; J2704; J3010; J7614

== ENCOUNTER 2018-08-26 01:35 | Inpatient (IN) | payer MEDICARE, MEDICAID ==
[2018-08-26 02:12] LABS: ABS Basophils 0.1 10^3/ul (0-0.2); ABS Eosinophils 0.4 10^3/ul (0-0.6); ABS Lymphocytes 2.4 10^3/ul (1.0-4.8); ABS Monocytes 0.7 10^3/ul (0-0.8); ABS Nucleated RBC 0 10^3/ul; Eosinophil % 3.6 %; Hematocrit 33 % (42-52); Hemoglobin 10.8 g/dl (14.0-18.0); Lymphocyte % 22.6 %; Mean Corpuscular HGB Conc 33 g/dl (31-36); Mean Corpuscular Hemoglobin 31 pg (27-31); Mean Corpuscular Volume 93 fL (80-94); Mean Platelet Volume 7.7 fL (7.4-10.4); Nucleated Red Blood Cells % 0; Platelet Count 277 10^3/ul (150-450); Red Blood Count 3.52 10^6/ul (4.00-5.40); Red Cell Distribution Width 15 % (10.5-15); White Blood Count 10.6 10^3/ul (3.5-10.8)
--- NOTE | 2018-08-26 02:18 | ED ---
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 He c/o leg and back pain. At triage the patient rated his pain a 9/10 in severity. The patient reports that he came to the ED today because he could not stand up to go to the bathroom. He reports that he had surgery on a disk on his lower back by Dr. Mckinley one year ago and he felt fine afterwards. He reports a Hx of recent falls and leg weakness. He denies abdominal pain. He lives alone. - History of Current Complaint Chief Complaint: EDExtremityLower Stated Complaint: LEG PAIN Hx Obtained From: Patient, EMS Onset/Duration: Gradual Onset, Started weeks ago, Still Present Timing: Constant Onset Severity: Severe Current Severity: Severe Neurological Deficit Location: Generalized Pain Intensity: 9 Pain Scale Used: 0-10 Numeric Character: Weak Aggravating: Nothing Alleviating: Nothing Associated Signs and Symptoms: Negative: Fever - Additional Pertinent History Primary Care Physician: GINNY - Allergy/Home Medications Allergies/Adverse Reactions: Allergies Allergy/AdvReac Type Severity Reaction Status Date / Time codeine Allergy Severe See Comment Verified 08/10/17 14:44 diphenhydramine Allergy Severe See Comment Verified 08/10/17 14:43 latex Allergy Severe Rash Verified 08/10/17 14:49 chlorhexidine Allergy Rash Verified 08/10/17 14:48 PMH/Surg Hx/FS Hx/Imm Hx Endocrine/Hematology History: Denies: Hx Bone Marrow Disease, Hx Diabetes, Hx Sickle Cell Disease, Hx Anemia, Hx Unexplained Bleeding Cardiovascular History: Reports: Hx Angina, Hx Coronary Artery Disease, Hx Hypercholesterolemia, Hx Hypertension, Hx Myocardial Infarction, Hx Syncope, Other Cardiovascular Problems/Disorders - ANGINA/ HTN Denies: Hx Aneurysm, Hx Angioplasty, Hx Auto Implanted Cardiovert Defib, Hx Cardiac Arrest, Hx Cardiomegaly, Hx Congenital Heart Disease, Hx Congestive Heart Failure, Hx Deep Vein Thrombosis, Hx Embolism, Hx Hypotension, Hx Pacemaker/ICD, Hx Peripheral Vascular Disease, Hx Rheumatic Fever, Hx Valvular Heart Disease Respiratory History: Reports: Hx Chronic Bronchitis Denies: Hx Asthma, Hx Chronic Obstructive Pulmonary Disease (COPD) History: Reports: Hx Benign Prostatic Hyperplasia Denies: Hx Renal Disease Musculoskeletal History: Reports: Hx Arthritis, Hx Back Problems, Other Musculoskeletal History - DISCS PRESSING UP AGAINST SPINE Sensory History: Reports: Hx Cataracts - BILATERAL Denies: Hx Contacts or Glasses, Hx Glaucoma, Hx Hearing Aid Opthamlomology History: Reports: Hx Cataracts - BILATERAL Denies: Hx Contacts or Glasses, Hx Glaucoma Neurological History: Reports: Other Neuro Impairments/Disorders - LUMBAR SPINAL STENOSIS WITH NEUROGENIC CLAUDICATION Psychiatric History: Reports: Hx Depression, Hx Bipolar Disorder, Hx Substance Abuse Denies: Hx Anxiety, Hx Attention Deficit Hyperactivity Disorder, Hx Autism, Hx Eating Disorder, Hx Panic Disorder, Hx of Violent Episodes Against Others - Cancer History Cancer Type, Location and Year: COLON CA WITH SURGICAL REMOVAL Hx Chemotherapy: No - Surgical History Surgery Procedure, Year, and Place: BILAT HIP REPLACEMENTS ;. C5-C6 FUSION ;. COLON CA WITH SURGICAL REMOVAL ;. CABG X 3 ;. CARDIAC CATH - NO STENTS ; Hx Anesthesia Reactions: No - Immunization History Date of Tetanus Vaccine: UP TO DATE Infectious Disease History: No Infectious Disease History: Reports: Hx Hepatitis - Hep C Denies: Hx Clostridium Difficile, Hx Human Immunodeficiency Virus (HIV), Hx of Known/Suspected MRSA, Hx Shingles, Hx Tuberculosis, History Other Infectious Disease, Traveled Outside the [place] in Last 30 Days - Family History Known Family History: Negative: Renal Disease - Social History Lives: Alone Alcohol Use: Occasionally Alcohol Amount: Binges on bottles of wine when drinking Hx Substance Use: Yes Substance Use Type: Reports: Cocaine Substance Use Comment - Amount & Last Used: last used 1 year ago Hx Tobacco Use: Yes Smoking Status (MU): Light Every Day Tobacco Smoker Type: Cigarettes Amount Used/How Often: 1 cig/day Have You Smoked in the Last Year: Yes Review of Systems Negative: Fever Positive: Myalgia - leg pain, back pain Positive: Weakness All Other Systems Reviewed And Are Negative: Yes Physical Exam - Summary Physical Exam Summary: Appearance: Well-appearing, Well-nourished, lying in bed comfortably Skin: Warm, dry, no obvious rash Eyes: sclera anicteric, no conjunctival pallor ENT: mucous membranes moist, pharynx appears normal Neck: Supple, nontender Respiratory: Clear to auscultation, no signs of respiratory distress Cardiovascular: Normal S1, S2. No murmurs. Normal distal pulses in tibial and radial bilaterally. Abdomen: Soft, nontender, normal active bowel sounds present Musculoskeletal: Normal, Strength/ROM Intact Neurological: A&Ox3, awake and alert, mentation is normal, speech is fluent and appropriate Psychiatric: affect is normal, does not appear anxious or depressed Triage Information Reviewed: Yes Vital Signs On Initial Exam: Initial Vitals Temp Pulse Resp BP Pulse Ox 98.5 F 96 22 142/100 100 08/26/18 01:35 08/26/18 01:35 08/26/18 01:35 08/26/18 01:35 08/26/18 01:35 Vital Signs Reviewed: Yes - [place] Coma Scale Best Eye Response: 4 - Spontaneous Best Motor Response: 6 - Obeys Commands Best Verbal Response: 5 - Oriented Coma Scale Total: 15 Diagnostics - Vital Signs Vital Signs Temp Pulse Resp BP Pulse Ox 08/26/18 01:35 98.5 F 96 22 142/100 100 - Laboratory Result Diagrams: 08/29/18 07:22 08/30/18 06:10 Lab Statement: Any lab studies that have been ordered have been reviewed, and results considered in the medical decision making process. - CT Brain CT Interpretation Completed By: Radiologist Summary of CT Findings: 1. No acute intracranial abnormality. 2. Mild chronic small vessel ischemic disease. Chronic right MCA territorial. infarct. ED physician has reviewed this imaging report. - EKG 01:46 Cardiac Rate: NL - 93 bpm EKG Rhythm: Sinus Rhythm Summary of EKG Findings: Normal sinus rhythm at 93 bpm with RBBB and LAFB. 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 He c/o leg and back pain. At triage the patient rated his pain a 9/10 in severity. The patient reports that he came to the ED today because he could not stand up to go to the bathroom. He reports that he had surgery on a disk on his lower back by Dr. Mckinley one year ago and he felt fine afterwards. He reports a Hx of recent falls and leg weakness. He denies abdominal pain. He lives alone.Brain CT impression: 1. No acute intracranial abnormality. 2. Mild chronic small vessel ischemic disease. Chronic right MCA territorial. infarct. EKG showed Normal sinus rhythm at 93 bpm with RBBB and LAFB. Lab results obtained and are WNL. Case discussed with Dr. Judge, hospitalist, who accpeted the patient for admission. The patient is agreeable with this plan. - Diagnoses Provider Diagnoses: Generalized weakness - Physician Notifications Discussed Care Of Patient With: Enriqueta Judge Time Discussed With Above Provider: 06:00 Instructed by Provider To: Admit As Inpatient Discharge - Sign-Out/Discharge Documenting (check all that apply): Patient Departure - admit Patient Received Moderate/Deep Sedation with Procedure: No - Discharge Plan Condition: Fair Disposition: ADMITTED TO [facility] - Billing Disposition and Condition Condition: FAIR Disposition: Admitted to [facility] - Attestation Statements Document Initiated by Sam: Yes Documenting Scribe: Royal Johnson Provider For Whom Sam is Documenting (Include Credential): Cristian Nunez MD Scribe Attestation: Royal Gaming, scribed for Cristian Nunez MD on 08/31/18 at 0615. Scribe Documentation Reviewed: Yes Provider Attestation: The documentation as recorded by the Royal helms accurately reflects the service I personally performed and the decisions made by Cristian castano MD Status of Scribe Document: Viewed
[2018-08-26 02:28] LABS: Alcohol < 10 mg/dL (<10)
[2018-08-26 02:29] LABS: ALT 11 U/L (7-52); AST 19 U/L (13-39); Albumin 3.7 g/dL (3.2-5.2); Albumin/Globulin Ratio 1.1 (1-3); Alkaline Phosphatase 67 U/L (34-104); Anion Gap 8 mmol/L (2-11); BUN/Creatinine Ratio 9.3 (8-20); Blood Urea Nitrogen 7 mg/dL (6-24); CO2 Carbon Dioxide 23 mmol/L (22-32); Chloride 107 mmol/L (101-111); EGFR African American 125.7 (>60); EGFR Non-African American 103.9 (>60); Globulin 3.4 g/dL (2-4); Glucose 118 mg/dL (70-100); Magnesium 1.6 mg/dL (1.9-2.7); Potassium 3.2 mmol/L (3.5-5.0); Sodium 138 mmol/L (135-145); Total Protein 7.1 g/dL (6.4-8.9)
[2018-08-26 02:30] LABS: Troponin I 0.01 ng/mL (<0.04)
[2018-08-26 02:44] LABS: TSH (Thyroid Stimulating Horm) 0.89 mcIU/mL (0.34-5.60)
[2018-08-26] MEDS ORDERED: Morphine VIAL* 4 MG/ML VIAL (1 ml vial) IV ONE (03:56)
[2018-08-26] MEDS ORDERED: Ketorolac INJ* 30 MG/ML 1 ML VIAL IV PUSH ONE (03:56)
[2018-08-26 05:16] LABS: Urine Appearance Clear; Urine Bilirubin Negative (Negative); Urine Blood Negative (Negative); Urine Color Yellow; Urine Glucose Negative (Negative); Urine Ketones Negative (Negative); Urine Nitrite Negative (Negative); Urine Protein Negative (Negative); Urine Specific Gravity 1.009 (1.010-1.030); Urine Urobilinogen Negative (Negative)
[2018-08-26 05:50] LABS: Barbiturates Urine Screen None Detected (None Detect); Benzodiazepine Urine Screen None Detected (None Detect); Urine Cannabinoids Screen None Detected (None Detect)
[2018-08-26] MEDS ORDERED: Potassium Chlor TAB* 20 MEQ TAB.ER PO ONE (07:52)
[2018-08-26] MEDS ORDERED: Morphine INJ* 2 MG/ML 1 ML SYRINGE (TWO MG - NEW SYRINGE VERSION) IV ONE (07:54)
[2018-08-26] MEDS ORDERED: Morphine VIAL* 4 MG/ML VIAL (1 ml vial) ONE (07:57)
[2018-08-26] MEDS ORDERED: Montelukast Sodium TAB* 10 MG PO PRN (07:59)
[2018-08-26] MEDS ORDERED: Fluticasone NASAL SPRAY 50MCG* 16 gm SPRAY BTL BOTH NARES PRN (07:59)
[2018-08-26] MEDS ORDERED: Albuterol HFA INHALER* 8 gm MDI INH PRN (07:59)
[2018-08-26] MEDS ORDERED: ASA-APAP-CAFFEINE ES (NF) 1 TAB TAB PO PRN (07:59)
[2018-08-26] MEDS ORDERED: Magnesium Sulfate 2 GM IV* 2 GM/50 ML BAG IVPB ONE (08:31)
--- NOTE | 2018-08-26 10:21 | HP ---
CC: Dr. Bernal; Dr. Prado HISTORY AND PHYSICAL: DATE OF ADMISSION: 08/26/18 TIME OF EVALUATION: 7:30 a.m. PRIMARY CARE PROVIDER: Dr. Bernal. CONSULTING NEUROSURGEON: Dr. Prado. CHIEF COMPLAINT: "My legs are weak". HISTORY OF PRESENT ILLNESS: Mr. Beasley is a 68-year-old male with a past medical history of coronary artery disease, hepatitis C, hypertension, hyperlipidemia, anxiety, depression, osteoarthritis, spin al stenosis status post decompressive laminectomy L3-L4, L4-L5 in August 2017; who presented to the emergency room with complaints of bilateral lower extremity weakness and frequent falls. He states that before his surgery he used to have severe back pain, weakness, and he could only walk short distances with a walker. He states that after surgery, he felt "great" and was able to ambulat e with a cane only and able to do more things with his partner. Late last year, his partner of 45 years passed and he states he is being "lost" since. He was having trouble sleeping. He had less energy and he has been working with his primary care provider to aditya t his depression, with addition of other antidepressives and increase of medication doses that he was taking before. He states that he had no appetite, had no wish to eat and initially he thought his w eakness was secondary to all his grievings. For the past couple of weeks, he states that he is feeling even worse. He tried to help a lady with her groceries and he fell. He states that his legs just "gave out on him" and he fell down. At that point, he was able to get up by himself. As the week went by, he continued to have frequent falls a nd he thinks he fell a total of 7 to 8 times and he states that now he cannot get up by himself anymo re and the last time he had to call his pocketed spring assembler to come and help him get up and he was brought into [facility] emergency room for further evaluation. He complains of mild tingling sensation on his left leg and he denies any urinary or bowel incontinence. He states that he has frequent headaches that he treats with Excedrin Extra Strength and this is unch anged from his usual pattern. He denies any facial weakness, change in speech, or upper extremity we akness. He also states that his back pain is returning, although not as bad as before. At this point, he can control it just with medications over the counter. He denies fever, chills, chest pain, shortness of breath, cough, urinary complaints. He does have so me constipation, but also states that this is not new to him. He denies weight loss and compared to his weight a year ago, it is basically unchanged. He actually gained 3 pounds. PAST MEDICAL HISTORY: 1. Coronary artery disease status post 4-vessel CABG in 2011. 2. Hepatitis C. 3. Hypertension. 4. Hyperlipidemia. 5. Anxiety. 6. Depression. 7. Osteoarthritis. 8. Spinal canal stenosis status post decompressive lumbar laminectomy L3-L4, L4- L5. MEDICATIONS LIST: This was obtained from the patient: 1. Albuterol HFA 2 puffs inhaled t.i.d. as needed for shortness of breath. 2. Excedrin Extra Strength 3 tablets p.o. daily as needed for headache. 3. Aspirin 81 mg p.o. daily. 4. Bupropion XL 150 mg p.o. daily. 5. Buspirone 30 mg p.o. t.i.d. 6. Cardizem CD 120 mg p.o. daily. 7. Fluoxetine 40 mg p.o. b.i.d. 8. Fluticasone nasal spray 50 mcg 2 sprays to both nares daily as needed for allergies. 9. Gabapentin 300 mg p.o. daily and 900 mg p.o. at bedtime. 10. Montelukast 10 mg p.o. daily as needed for allergy symptoms. 11. Nortriptyline 75 mg p.o. at bedtime. 12. Ranitidine 150 mg p.o. b.i.d. ALLERGIES: With CODEINE, the patient has depression. With BENADRYL, the patient feels depressed. W ith LASIX, the patient had a rash as well with CHLORHEXIDINE. FAMILY HISTORY: Mother is still alive. Father of lung cancer. SOCIAL HISTORY: The patient denies alcohol, tobacco, or drug use; but looking at his records, the pa hank has a history of cocaine use and he was also a smoker. In our record, his last UTox positive f or cocaine was in 2017. Surrogate decision maker is his mother, Nazia Beasley, phone number is [phone]. REVIEW OF SYSTEMS: A 14-point review of systems was performed and all the pertinent negative and pos itive findings are in the HPI. PHYSICAL EXAMINATION GENERAL: The patient is a pleasant -British gentleman sitting up in the ED stretcher in no a cute distress. VITAL SIGNS: Temperature 98.5, heart rate is 91, respiratory rate is 20, oxygen saturation is 98% on room air, blood pressure 161/94. HEENT: Pupils are equal. He is status post cataract surgery. Moist mucous membranes. CHEST: Breath sounds bilaterally with no added sounds. CVS: Normal S1 and S2. Regular rate and rhythm. ABDOMEN: Soft. Bowel sounds present. EXTREMITIES: No edema. RECTAL: Rectal tone is preserved. NEUROLOGIC: He is alert and oriented x3. Speech is normal and fluent. Face is symmetric. Power is 5/5 on both upper extremities. Sensation is intact. Finger- to-nose is normal. He is unable to li ft both lower extremities from bed. He has hip and back pain with passive range of motion. I can on ly lift his legs up to 20 degrees from the bed. He has mild numbness on his left foot and left calf. The patient initially declined a rectal exam, but after further conversation, he was agreeable. Pe rineal sensation is intact. Reflexes are diminished in the lower extremities (knee and ankle). SKIN: There is no rash. LABORATORY AND IMAGING DATA: The patient had a CBC that showed a WBC of 10.6, hemoglobin of 10.8, h ematocrit of 33, platelets of 277, and 66% neutrophils. Chemistry: Showed a sodium of 138, potassium of 3.2, chloride 107, bicarb of 23, BUN of 7, creatinine of 0.75, glucose of 118, lactic acid of 1, calcium of 9.0, magnesium of 1.6. LFTs were normal. Troponin of 0.01. TSH was 0.89. Urinalysis was negative. Urine toxicology was also negative and serum alcohol level was less than 10. CT of the brain without contrast showed no acute intracranial abnormality. Mild chronic small vessel ischemic disease, chronic right MCA territory infarct. ASSESSMENT AND PLAN: Mr. Beasley is a 68-year-old male with a past medical history of coronary artery disease, hepatitis C, hypertension, hyperlipidemia, anxiety, depression, status post lumbar laminect jeff in 2018, who presented to the emergency room with complaints of progressive bilateral lower extre mity weakness and back pain. 1. Back pain/bilateral lower extremity weakness. I am concerned that the patient may have recurrenc e of disease on his spine. I do not think he has an infection at this time as he has no fever, no le ukocytosis, no other objective signs to suggest infection. He does not seem to have cauda equina at this time, but his physical examination was difficult as the patient tells me that he cannot move his lower extremities, but I believe he could move more than when I was examining him. The case was dis cussed with neurosurgery and the plan is for MRI of the thoracic and lumbar spine. The patient will be admitted as observation to the medical floor. We are going to continue pain hemant gement and he will also need physical therapy. 2. Depression. It seems to be amplifying all his symptoms with the recent passing of his partner of 45 years. His antidepressants have been adjusted by his primary care provider and we are going to c ontinue them. 3. Hypertension. We will continue diltiazem. 4. Hypokalemia/hypomagnesemia. We will replete. 5. DVT prophylaxis. The patient has a score of 2 on the DVT prophylaxis Risk Assessment Guide. He will be started on SCDs until we know if he will require any neurosurgical procedures. 6. Code status is full. TIME SPENT: Approximately 55 minutes was spent with patient interview, [facility] record review, physical examination to complete this admission. More than half this time was spe nt [id number] with the patient in coordination of care. [id number]/[facility] #: [id number]
[2018-08-26] MEDS: Aspirin 81 mg CHEW TAB* 81 MG TAB.CHEW PO SCH (11:23)
[2018-08-26] MEDS: Diltiazem CD CAP* 120 MG PO SCH (11:24)
[2018-08-26] MEDS: Famotidine TAB* 20 MG PO SCH ×2 (11:24→20:34)
[2018-08-26] MEDS: Gabapentin CAP(*) 300 MG PO SCH ×2 (11:24→20:35)
[2018-08-26] MEDS: BuPROPion XL* 150 MG TAB.XL PO SCH (11:25)
[2018-08-26] MEDS: FLUoxetine CAP* 20 MG PO SCH ×2 (11:25→20:34)
[2018-08-26] MEDS: busPIRone TAB* 15 MG PO SCH ×2 (13:41→13:59)
[2018-08-26] MEDS ORDERED: Heparin VIAL(*) 5000 UNITS/ML VIAL (FIVE THOUSAND) SUBCUT SCH (14:00)
[2018-08-26] MEDS: busPIRone TAB* 10 MG PO SCH ×2 (14:03→20:34)
[2018-08-26] MEDS: Nortriptyline CAP* 25 MG PO SCH (20:33)
[2018-08-26] MEDS: Bisacodyl EC TAB* 5 MG PO SCH (20:34)
[2018-08-26] MEDS: Morphine INJ* 2 MG/ML 1 ML SYRINGE (TWO MG - NEW SYRINGE VERSION) IV PRN (20:36)
[2018-08-26] MEDS: Polyethylene Glycol 3350* 17 GM PACKET PO SCH (20:37)
[2018-08-27] MEDS: Morphine INJ* 2 MG/ML 1 ML SYRINGE (TWO MG - NEW SYRINGE VERSION) IV PRN (06:09)
--- NOTE | 2018-08-27 07:14 | PN ---
Hospitalist Progress Note Date of Service: 08/27/18 LATE ENTRY for 08/26/18 6PM. Thoracic/lumbar spine results reviewed with Neurosurgery (Dr Prado): no acute changes that would require emergency surgery. May benefit fusion but Dr Prado wants to review case and talk to Dr Mckinley.
--- NOTE | 2018-08-27 09:00 | PN ---
Subjective Date of Service: 08/27/18 Interval History: Mr. Beasley is feeling poor this morning. His pain has not improved since yesterday. He thinks the pain in his LLE has improved, but worsened in the RLE. He has significant RLE weakness. Pain with movement or touch. Describes the pain as 7/10, radiating to his foot, piercing. No incontinence or saddle anesthesia. He thinks his body is giving up on him and this is a sign that he is dying. He reports "depression on depression" as he was already suffering from depression before his partner in 2018. No active suicidal ideations, but has had thoughts of hurting himself in the past. He feels like he needs someone to talk to. Denies CP, SOB, N/V. Wants his IV removed and to have PO pain medications. Family History: Unchanged from Admission Social History: Unchanged from Admission Past Medical History: Unchanged from Admission Objective Active Medications: Acetam/Aspirin/Caff/Calcium Glucon (Excedrin Extra Strength 250-250-65 Mg (Nf)) 3 tab PO DAILY PRN HEADACHE Albuterol (Ventolin Hfa Inhaler*) 2 puff INH TID PRN SOB/WHEEZING Aspirin (Aspirin 81 Mg Chew Tab*) 81 mg PO DAILY [facility] Bisacodyl (Dulcolax Ec Tab*) 5 mg PO BEDTIME [facility] Bupropion HCl (Wellbutrin Xl *) 150 mg PO DAILY [facility] Buspirone HCl (Buspar Tab*) 30 mg PO TID [facility] Diltiazem HCl (Cardizem Cd Cap*) 120 mg PO DAILY [facility] Famotidine (Pepcid Tab*) 20 mg PO BID [facility]; Protocol Fluoxetine HCl (Prozac Cap*) 40 mg PO BID [facility] Fluticasone Propionate (Flonase Nasal [place] 50mcg*) 2 spray BOTH NARES QAM PRN CONGESTION Gabapentin (Neurontin Cap(*)) 300 mg PO DAILY [facility] Gabapentin (Neurontin Cap(*)) 900 mg PO BEDTIME [facility] Montelukast Sodium (Singulair Tab*) 10 mg PO DAILY PRN Allergies/cough Morphine Sulfate (Morphine Inj ((Syringe))*) 2 mg IV Q2H PRN SEVERE PAIN Nortriptyline HCl (Pamelor Cap*) 75 mg PO BEDTIME [facility] Polyethylene Glycol/Electrolytes (Miralax*) 17 gm PO 0800,2100 [facility] Vital Signs - 8 hr 08/27/18 08/27/18 02:54 06:09 Temperature 98.3 F Pulse Rate 89 Respiratory 18 20 Rate Blood Pressure 129/86 (mmHg) O2 Sat by Pulse 97 Oximetry Oxygen Devices in Use Now: None Appearance: Elderly male laying in bed in NAD Eyes: No Scleral Icterus Ears/Nose/Mouth/Throat: Mucous Membranes Moist Neck: NL Appearance and Movements; NL JVP, Trachea Midline Respiratory: Symmetrical Chest Expansion and Respiratory Effort, Clear to Auscultation Cardiovascular: NL Sounds; No Murmurs; No JVD, RRR Abdominal: NL Sounds; No Tenderness; No Distention Extremities: No Edema Skin: No Rash or Ulcers Neurological: Alert and Oriented x 3, NL Sensation, - - 4/5 strength LLE, 2/5 RLE Lines/Tubes/Other Access: Clean, Dry and Intact Peripheral IV Nutrition: Taking PO's Result Diagrams: 08/26/18 02:03 08/26/18 02:03 Assess/Plan/Problems-Billing Assessment: Mr. Beasley is a 68 yo M with PMH of CAD s/p CABG, hep C, HTN, HLD, anxiety, depression, and s/p L3/L4 and L4/L5 laminectomy in 2018; who presented to the ED with c/o weakness and was admitted for PT evaluation and pain control. - Patient Problems (1) Pain in both lower extremities Code(s): M79.604 - PAIN IN RIGHT LEG; M79.605 - PAIN IN LEFT LEG Comment: - With associated weakness, R>L; no evidence of cauda equina - S/p lumbar laminectomy in 2018 - MRI thoracic/lumbar spine without acute changes that would require emergent surgery - Appreciate Neurosurgery consult - PT evaluation - Change morphine to oxycodone per patient request (2) Anxiety and depression Code(s): F41.9 - ANXIETY DISORDER, UNSPECIFIED; F32.9 - MAJOR DEPRESSIVE DISORDER, SINGLE EPISODE, UNSPECIFIED Comment: - Exacerbated by grief d/t recent of partner - Appreciate Psych consult - Continue bupropion, buspirone, fluoxitine (3) CAD (coronary artery disease) Code(s): I25.10 - ATHSCL HEART DISEASE OF [place] CORONARY ARTERY W/O ANG PCTRS Comment: - Stable - S/p CABG in 2012 - Continue aspirin; unclear why he is not on a statin (4) Hypertension Code(s): I10 - ESSENTIAL (PRIMARY) HYPERTENSION Comment: - Normotensive, SBP 120-130s - Continue diltiazem (5) DVT prophylaxis Comment: - SCDs (6) Full code status Code(s): Z78.9 - OTHER SPECIFIED HEALTH STATUS Comment: Status and Disposition: Observation. Pending PT consult and Neurosurgery consult, but may likely need LULU. Attending: Danny Mckinney
[2018-08-27 09:22] LABS: BUN/Creatinine Ratio 10.7 (8-20); Calcium 9.4 mg/dL (8.6-10.3); EGFR African American 125.7 (>60); EGFR Non-African American 103.9 (>60); Magnesium 1.8 mg/dL (1.9-2.7); Potassium 4.4 mmol/L (3.5-5.0)
[2018-08-27] MEDS: oxyCODONE TAB* 5 MG TAB PO PRN ×3 (09:51→19:51)
[2018-08-27] MEDS: FLUoxetine CAP* 20 MG PO SCH ×2 (09:51→21:34)
[2018-08-27] MEDS: Famotidine TAB* 20 MG PO SCH ×2 (09:52→21:34)
[2018-08-27] MEDS: Gabapentin CAP(*) 300 MG PO SCH ×2 (09:52→21:31)
[2018-08-27] MEDS: busPIRone TAB* 10 MG PO SCH ×3 (09:52→21:34)
[2018-08-27] MEDS: BuPROPion XL* 150 MG TAB.XL PO SCH (09:53)
[2018-08-27] MEDS: Aspirin 81 mg CHEW TAB* 81 MG TAB.CHEW PO SCH (09:53)
[2018-08-27] MEDS: Diltiazem CD CAP* 120 MG PO SCH (09:53)
[2018-08-27] MEDS: Polyethylene Glycol 3350* 17 GM PACKET PO SCH ×2 (09:54→21:33)
--- NOTE | 2018-08-27 13:49 | CONS ---
AMENDED REPORT NOW INCLUDES DATE OF CONSULT CONSULTATION REPORT: DATE OF CONSULT: 08/27/2018 DATE OF DICTATION: 08/27/18 HISTORY OF PRESENT ILLNESS: The patient is a very pleasant 68-year-old gentleman with history of coronary artery disease, hepatitis C, hypertension, hyperlipidemia, anxiety, depression, osteoarthritis, spinal stenosis with status post decompressive laminectomy at L3-4 and L4-[address] Mckinley who presented to the emergency room with complaints of progressive back pain and bilateral lower extremity weakness and frequent falls. The patient reports that prior to his surgical intervention, he had significant back pain radiating to both lower extremities. Postsurgically, the patient did very well. His pain was resolved and was able to ambulate well. Unfortunately, his symptoms slowly returned and over the last 1 month, he had progressive increased back pain and lower extremity weakness with numbness, especially on the right lower extremity. The patient had several episodes of fall and finally decided to come to the emergency room because of the persistence of his weakness. The patient also has increased depression because of the passing of his partner for 45 years. The patient reports that he has back pain radiating to both lower extremities, right is slightly worse than the left, with the pain going down to his foot. The patient reports that he has weakness in both lower extremities, right worse than the left with numbness in both lower extremities when he is trying to ambulate. The patient reports that he can ambulate to the bathroom with assistance, but the last time that he was ambulate relatively well , it was almost 1 month ago. The patient denies any urinary or GI incontinence. The patient had regular exam by Dr. Simmons, which was found to be normal. The patient reports that he is retired. 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 PAST MEDICAL HISTORY: Coronary artery disease, hepatitis C, hypertension, hyperlipidemia, anxiety, depression, osteoarthritis, spinal stenosis. MEDICATIONS: The patient was on: 1. Albuterol. 2. Excedrin. 3. Aspirin. 4. Buspirone. 5. Cardizem. 6. Fluoxetine. 7. Fluticasone. 8. Gabapentin. 9. Montelukast. 10. Nortriptyline. 11. Ranitidine. ALLERGIES: The patient has a history of allergy to CODEINE, BENADRYL, LASIX and CHLORHEXIDINE. FAMILY HISTORY: Father of lung cancer. SOCIAL HISTORY: The patient denies tobacco, alcohol or recreational use, but according to his chart the patient has a history of cocaine use and tobacco use in the past with last positive urine drug screen for cocaine in 2016. Surrogate decision maker is his mother, Nazia Beasley, phone number is [phone]. PHYSICAL EXAM: The patient is not in acute distress. He is awake and alert. He is oriented x3. His pupils are equal and reactive. Cranial nerves II through XII are grossly intact. Motor 4/5 in all extremities. The patient has decreased ability to lift his legs above the bed due to pain, but in isolated muscles groups testing, his strength is approximately 4/5 in the lower extremities. Sensory: Grossly intact to light touch, except decreased sensation bilateral feet below L4 distribution. Deep tendon reflexes +1 bilaterally. Lower extremity exam was limited because of pain. No clonus. No Babinski. Mary's negative. Straight leg test positive 20 degrees in both legs. The patient has no tenderness to palpation of the thoracic or lumbar spine. He has free range of motion of cervical spine. DIAGNOSTIC STUDIES/LAB DATA: Patient had CT scan of the brain that revealed chronic right MCA distribution infarct. The patient had the MRI of cervical spine that did not reveal any evidence of significant stenosis other than the chronic findings of dorsal stenosis at the C6-7 to C7-T1 and it was similar in appearance with MRI from 2010. The patent had also an MRI of his lumbar spine that revealed postoperative changes at L3 and L4 from laminectomy. There is presence of persistent stenosis at these 2 levels with disk height loss and bilateral neuroforaminal stenosis, especially at L4-5 level. There is also grade 1 spondylolisthesis at L4-5. ASSESSMENT: The patient is a very pleasant 68-year-old gentleman with past medical history of coronary artery disease, hepatitis C, hypertension, hyperlipidemia, anxiety, depression, osteoarthritis with status post decompressive laminectomy L3- 4 and L4-[address] Mckinley who now complains of progressive back pain and lower extremity pain and weakness. PLAN: The patient at this point has significant difficulty with his pain and his ability to ambulate. He does have evidence of stenosis on his lumbar spine MRI and spondylolisthesis at L4-5. He may be a candidate for surgical intervention in terms of an arthrodesis, but prior to making any further recommendations, I would recommend obtaining a CT scan of his lumbar spine, flexion extension x-rays of his lumbar spine, and upright scoliosis x-rays if the patient is able to stand. Will be happy to review the films with Dr. Mckinley and finalize the plan after that. Thank you for allowing us to participate in the care of this patient. Please do not hesitate to contact our office in case you have any further questions or concerns regarding the care of this patient. [id number]/[facility] #: [id number] MTDD
[2018-08-27] MEDS ORDERED: Acetaminophen TAB* 325 MG PO PRN (14:43)
[2018-08-27] MEDS ORDERED: Magnesium Oxide TAB* 400 MG PO SCH (21:00)
[2018-08-27] MEDS: Nortriptyline CAP* 25 MG PO SCH (21:30)
[2018-08-27] MEDS: Bisacodyl EC TAB* 5 MG PO SCH (21:33)
[2018-08-27] MEDS: Magnesium Oxide TAB* 400 MG PO SCH (21:34)
[2018-08-28] MEDS: oxyCODONE TAB* 5 MG TAB PO PRN ×4 (01:17→22:16)
[2018-08-28] MEDS ORDERED: Magnesium Sulfate 2 GM IV* 2 GM/50 ML BAG IVPB ONE (08:30)
[2018-08-28] MEDS: Gabapentin CAP(*) 300 MG PO SCH ×2 (08:56→22:14)
[2018-08-28] MEDS: busPIRone TAB* 10 MG PO SCH ×3 (08:57→22:14)
[2018-08-28] MEDS: Magnesium Oxide TAB* 400 MG PO SCH (08:57)
[2018-08-28] MEDS: Aspirin 81 mg CHEW TAB* 81 MG TAB.CHEW PO SCH (08:58)
[2018-08-28] MEDS: FLUoxetine CAP* 20 MG PO SCH ×2 (08:58→22:15)
[2018-08-28] MEDS: BuPROPion XL* 150 MG TAB.XL PO SCH (08:58)
[2018-08-28] MEDS: Polyethylene Glycol 3350* 17 GM PACKET PO SCH ×2 (08:59→22:15)
[2018-08-28] MEDS: Diltiazem CD CAP* 120 MG PO SCH (08:59)
[2018-08-28] MEDS: Famotidine TAB* 20 MG PO SCH ×2 (08:59→22:15)
--- NOTE | 2018-08-28 12:15 | PN ---
Progress Note - Progress Note Date of Service: 08/28/18 SOAP: Subjective: []No event ON. Reported fall yesterday. No LOC, No LOM, Patient denies neck or back pain. No new weakness or numbness. Feels fatigued. Tolerates po well. Voids. Objective: []VSS AAOx3, ANNA MARIE, CN II-XII grossly intact Motor 4-5/5 UEs, 4/5 LEs Sensory grossly intact to light touch, except decreased bellow L4 bilaterally Assessment: []68 yo m back pain, LEs weakness L3-4 4-5 stenosis, L4-5 spondylolisthesis Plan: []Monitor VS, Neurochecks CT of Lumbar spine, XR of Lumbar spine with F/E, Scoliosis views. Will discuss with Dr Mckinley. Chele Prado Md
--- NOTE | 2018-08-28 13:14 | PN ---
Subjective Date of Service: 08/28/18 Interval History: Patient continues to complain of severe but stable LE pain and weakness. Patient states repeatedly how depressed he is and how he doesn't really want to go on. Patient attributes this to the loss of his partner. Patient denies CP, SOB, F/C, N/V, abdominal pain, dysuria, passing out, or other pain. Patient denies saddle anesthesia or loss of bowel/bladder control. Patient and nursing staff attest that he cannot stand at this time due to weakness and pain. Family History: Unchanged from Admission Social History: Unchanged from Admission Past Medical History: Unchanged from Admission Objective Active Medications: Acetam/Aspirin/Caff/Calcium Glucon (Excedrin Extra Strength 250-250-65 Mg (Nf)) 3 tab PO DAILY PRN PRN Reason: HEADACHE Acetaminophen (Tylenol Tab*) 650 mg PO Q4H PRN PRN Reason: PAIN Albuterol (Ventolin Hfa Inhaler*) 2 puff INH TID PRN PRN Reason: SOB/WHEEZING Aspirin (Aspirin 81 Mg Chew Tab*) 81 mg PO DAILY [facility] Last Admin: 08/28/18 08:58 Dose: 81 mg Bisacodyl (Dulcolax Ec Tab*) 5 mg PO BEDTIME [facility] Last Admin: 08/27/18 21:33 Dose: 5 mg Bupropion HCl (Wellbutrin Xl *) 150 mg PO DAILY [facility] Buspirone HCl (Buspar Tab*) 30 mg PO TID [facility] Last Admin: 08/28/18 08:57 Dose: 30 mg Diltiazem HCl (Cardizem Cd Cap*) 120 mg PO DAILY [facility] Last Admin: 08/28/18 08:59 Dose: 120 mg Famotidine (Pepcid Tab*) 20 mg PO BID [facility]; Protocol Last Admin: 08/28/18 08:59 Dose: 20 mg Fluoxetine HCl (Prozac Cap*) 40 mg PO BID [facility] Last Admin: 08/28/18 08:58 Dose: 40 mg Fluticasone Propionate (Flonase Nasal [place] 50mcg*) 2 spray BOTH NARES QAM PRN PRN Reason: CONGESTION Last Admin: 08/26/18 11:26 Dose: 2 spray Gabapentin (Neurontin Cap(*)) 300 mg PO DAILY [facility] Last Admin: 08/28/18 08:56 Dose: 300 mg Gabapentin (Neurontin Cap(*)) 900 mg PO BEDTIME [facility] Last Admin: 08/27/18 21:31 Dose: 900 mg Magnesium Oxide (Magox 400 Tab*) 400 mg PO DAILY [facility] Last Admin: 08/28/18 08:57 Dose: 400 mg Montelukast Sodium (Singulair Tab*) 10 mg PO DAILY PRN PRN Reason: Allergies/cough Nortriptyline HCl (Pamelor Cap*) 75 mg PO BEDTIME [facility] Last Admin: 08/27/18 21:30 Dose: 75 mg Oxycodone HCl (Roxycodone Tab*) 5 mg PO Q4H PRN PRN Reason: PAIN Last Admin: 08/28/18 08:56 Dose: 5 mg Polyethylene Glycol/Electrolytes (Miralax*) 17 gm PO 0800,2100 [facility] Last Admin: 08/28/18 08:59 Dose: Not Given Vital Signs - 8 hr 08/28/18 08/28/18 08/28/18 08:00 08:23 08:56 Temperature 97.1 F Pulse Rate 84 Respiratory 18 18 20 Rate Blood Pressure 127/74 (mmHg) O2 Sat by Pulse 100 Oximetry 08/28/18 11:00 Temperature Pulse Rate Respiratory 18 Rate Blood Pressure (mmHg) O2 Sat by Pulse Oximetry Oxygen Devices in Use Now: None Appearance: Patient is a 68yo male who appears stated age and is sitting in the bed in [facility]. Eyes: No Scleral Icterus, PERRLA Ears/Nose/Mouth/Throat: NL Teeth, Lips, Gums, Clear Oropharnyx, Mucous Membranes Moist Neck: NL Appearance and Movements; NL JVP, Trachea Midline Respiratory: Symmetrical Chest Expansion and Respiratory Effort, Clear to Auscultation Cardiovascular: NL Sounds; No Murmurs; No JVD, RRR, No Edema Abdominal: NL Sounds; No Tenderness; No Distention, No Hepatosplenomegaly Lymphatic: No Cervical Adenopathy Extremities: No Edema, No Clubbing, Cyanosis Skin: No Rash or Ulcers, No Nodules or Sclerosis Neurological: Alert and Oriented x 3, - - 4-/5 strength in B/L LE. Low apparent effort. Normal reflexes. CN II-XII intact. Result Diagrams: 08/26/18 02:03 08/27/18 08:56 Assess/Plan/Problems-Billing Assessment: Mr. Beasley is a 68 yo M with PMH of CAD s/p CABG, hep C, HTN, HLD, anxiety, depression, and s/p L3/L4 and L4/L5 laminectomy in 2018; who presented to the ED with c/o weakness and was admitted for PT evaluation and pain control and possible need for placement. - Patient Problems (1) Anxiety and depression Current Visit: Yes Status: Acute Code(s): F41.9 - ANXIETY DISORDER, UNSPECIFIED; F32.9 - MAJOR DEPRESSIVE DISORDER, SINGLE EPISODE, UNSPECIFIED SNOMED Code(s): 74554683 Comment: - Exacerbated by grief d/t recent of partner - Psych consult pending - Continue bupropion, buspirone, fluoxetine, pamelor - Feels as if buproprion has been causing him to see shadows in the corners of his vision but cannot further elaborate on that. (2) CAD (coronary artery disease) Current Visit: Yes Status: Acute Code(s): I25.10 - ATHSCL HEART DISEASE OF [place] CORONARY ARTERY W/O ANG PCTRS SNOMED Code(s): 65410411 Comment: - Stable - S/p CABG in 2011 - Continue aspirin; unclear why he is not on a statin (3) DVT prophylaxis Current Visit: Yes Status: Acute Code(s): [id number] - SNOMED Code(s): 803824396 Comment: - SCDs (4) Full code status Current Visit: Yes Status: Acute Code(s): Z78.9 - OTHER SPECIFIED HEALTH STATUS SNOMED Code(s): 140497305 Comment: (5) Hypertension Current Visit: Yes Status: Acute Code(s): I10 - ESSENTIAL (PRIMARY) HYPERTENSION SNOMED Code(s): 72071477 Comment: - Normotensive, SBP 120-130s - Continue diltiazem (6) Pain in both lower extremities Current Visit: Yes Status: Acute Code(s): M79.604 - PAIN IN RIGHT LEG; M79.605 - PAIN IN LEFT LEG SNOMED Code(s): 31853073 Comment: - With associated weakness, R>L; no evidence of cauda equina - S/p lumbar laminectomy in 2018 - MRI thoracic/lumbar spine without acute changes that would require emergent surgery - Appreciate Neurosurgery consult - PT evaluation - Change morphine to oxycodone per patient request (7) Lumbar stenosis Current Visit: No Status: Acute Code(s): M48.061 - SPINAL STENOSIS, LUMBAR REGION WITHOUT NEUROGENIC CATE SNOMED Code(s): 51700018 Status and Disposition: Observation. Pending PT consult and Neurosurgery consult, but may likely need LULU.
--- NOTE | 2018-08-28 17:46 | PN ---
Progress Note - Progress Note Date of Service: 08/28/18 Note: Saw Korey on bedside on medical floor. He continues to be in LE pain ans severe depression related to multiple losses in life. Verbalizes suicidal thoughts with a plan to slit his wrist when he goes home as he will be alone by himself even if they find a place for him in the community. Also reports of seeing shadows by the corner of his eyes and fearful those shadows. This happens only when he is alone by himself. Plan is to continue current psychiatric treatments on the medical unit and FU on regular basis. He appears to enjoy visit by mental health professionals and I will recommend someone from the unit or one of our ED evaluators to provide supportive therapy on a regular basis if possible.
[2018-08-28] MEDS: Nortriptyline CAP* 25 MG PO SCH (22:13)
[2018-08-28] MEDS: Bisacodyl EC TAB* 5 MG PO SCH (22:15)
[2018-08-29] MEDS: oxyCODONE TAB* 5 MG TAB PO PRN ×4 (02:43→23:34)
[2018-08-29 07:40] LABS: Hematocrit 35 % (42-52); Hemoglobin 11.8 g/dl (14.0-18.0); Mean Corpuscular HGB Conc 33 g/dl (31-36); Mean Corpuscular Hemoglobin 31 pg (27-31); Mean Corpuscular Volume 94 fL (80-94); Mean Platelet Volume 7.9 fL (7.4-10.4); Platelet Count 263 10^3/ul (150-450); Red Blood Count 3.76 10^6/ul (4.00-5.40); Red Cell Distribution Width 15 % (10.5-15); White Blood Count 9.3 10^3/ul (3.5-10.8)
--- NOTE | 2018-08-29 07:55 | PN ---
Progress Note - Progress Note Date of Service: 08/29/18 SOAP: Subjective: []Patient known to me from prior surgery C/O back pain,leg issues MRI improved over pre op study Objective: []Generalized leg weakness Partially effort related Assessment: []Chronic back pain with deconditioning Plan: []PT/Rehab No indication for surgery at present Would be happy to follow as outpatient
[2018-08-29 08:26] LABS: Calcium 9.7 mg/dL (8.6-10.3); Magnesium 1.9 mg/dL (1.9-2.7)
[2018-08-29 08:31] LABS: BUN/Creatinine Ratio 15.9 (8-20); EGFR African American 113.4 (>60); EGFR Non-African American 93.7 (>60)
[2018-08-29 08:37] LABS: Potassium 5.2 mmol/L (3.5-5.0)
[2018-08-29 08:42] LABS: Lymphocytes % 21 %; Metamyelocytes % 1 % (0-2); Monocytes % 14 %; Myelocytes % 1 % (0-1); Neutrophil % 56 %
[2018-08-29 08:43] LABS: Immature Granulocytes 3 % (0-9)
[2018-08-29 08:45] LABS: ABS Eosinophils 0.55 10^3/ul (0-0.6); ABS Neutrophils 5.48 10^3/ul (1.5-7.7)
[2018-08-29] MEDS ORDERED: BuPROPion XL* 150 MG TAB.XL PO SCH (09:00)
[2018-08-29] MEDS: busPIRone TAB* 10 MG PO SCH ×3 (09:31→23:27)
[2018-08-29] MEDS: BuPROPion XL* 150 MG TAB.XL PO SCH (09:32)
[2018-08-29] MEDS: Aspirin 81 mg CHEW TAB* 81 MG TAB.CHEW PO SCH (09:34)
[2018-08-29] MEDS: Diltiazem CD CAP* 120 MG PO SCH (09:35)
[2018-08-29] MEDS: Famotidine TAB* 20 MG PO SCH ×2 (09:35→23:27)
[2018-08-29] MEDS: Gabapentin CAP(*) 300 MG PO SCH ×2 (09:36→23:26)
[2018-08-29] MEDS: FLUoxetine CAP* 20 MG PO SCH ×2 (09:36→23:28)
[2018-08-29] MEDS: Magnesium Oxide TAB* 400 MG PO SCH (09:37)
[2018-08-29] MEDS: Polyethylene Glycol 3350* 17 GM PACKET PO SCH ×2 (09:41→23:39)
--- NOTE | 2018-08-29 12:59 | PN ---
Subjective Date of Service: 08/29/18 Interval History: Patient is persistently depressed. Patient states he is "weighing the spiritual balance" of killing himself. Patient endorses persistent "shadows" in the corners of his gaze which have been occuring since he began the buproprion. Patient has persistent pain which he mainly focalized to his right hip and describes as sharp and pulsatile. Patient denies bowel or bladder concerns besides resolving constipation. Patient denies F/C, CP, SOB, N/V, abdominal pain , dysuria, or other pain. Patient is able to take a few steps, but is generally unable to walk. Family History: Unchanged from Admission Social History: Unchanged from Admission Past Medical History: Unchanged from Admission Objective Active Medications: Acetam/Aspirin/Caff/Calcium Glucon (Excedrin Extra Strength 250-250-65 Mg (Nf)) 3 tab PO DAILY PRN PRN Reason: HEADACHE Acetaminophen (Tylenol Tab*) 650 mg PO Q4H PRN PRN Reason: PAIN Albuterol (Ventolin Hfa Inhaler*) 2 puff INH TID PRN PRN Reason: SOB/WHEEZING Aspirin (Aspirin 81 Mg Chew Tab*) 81 mg PO DAILY [facility] Last Admin: 08/29/18 09:34 Dose: 81 mg Bisacodyl (Dulcolax Ec Tab*) 5 mg PO BEDTIME [facility] Last Admin: 08/28/18 22:15 Dose: 5 mg Bupropion HCl (Wellbutrin Xl *) 150 mg PO DAILY [facility] Last Admin: 08/29/18 09:32 Dose: 150 mg Buspirone HCl (Buspar Tab*) 30 mg PO TID [facility] Last Admin: 08/29/18 09:31 Dose: 30 mg Cyanocobalamin (Vitamin B12 Tab*) 1,000 mcg PO DAILY [facility] Diltiazem HCl (Cardizem Cd Cap*) 120 mg PO DAILY [facility] Last Admin: 08/29/18 09:35 Dose: 120 mg Famotidine (Pepcid Tab*) 20 mg PO BID [facility]; Protocol Last Admin: 08/29/18 09:35 Dose: 20 mg Fluoxetine HCl (Prozac Cap*) 40 mg PO BID [facility] Last Admin: 08/29/18 09:36 Dose: 40 mg Fluticasone Propionate (Flonase Nasal [place] 50mcg*) 2 spray BOTH NARES QAM PRN PRN Reason: CONGESTION Last Admin: 08/26/18 11:26 Dose: 2 spray Gabapentin (Neurontin Cap(*)) 300 mg PO DAILY [facility] Gabapentin (Neurontin Cap(*)) 900 mg PO BEDTIME [facility] Magnesium Oxide (Magox 400 Tab*) 400 mg PO DAILY [facility] Last Admin: 08/29/18 09:37 Dose: 400 mg Montelukast Sodium (Singulair Tab*) 10 mg PO DAILY PRN PRN Reason: Allergies/cough Nortriptyline HCl (Pamelor Cap*) 75 mg PO BEDTIME [facility] Last Admin: 08/28/18 22:13 Dose: 75 mg Oxycodone HCl (Roxycodone Tab*) 5 mg PO Q4H PRN PRN Reason: PAIN Last Admin: 08/29/18 02:43 Dose: 5 mg Polyethylene Glycol/Electrolytes (Miralax*) 17 gm PO 0800,2100 [facility] Last Admin: 08/29/18 09:41 Dose: Not Given Vital Signs - 8 hr 08/29/18 08/29/18 08/29/18 07:15 08:00 09:36 Temperature 98.3 F Pulse Rate 81 Respiratory 16 16 16 Rate Blood Pressure 112/60 (mmHg) O2 Sat by Pulse 100 Oximetry Oxygen Devices in Use Now: None Appearance: Patient is a 68yo male who appears stated age and is sitting in the bed in [facility]. Eyes: No Scleral Icterus, PERRLA Ears/Nose/Mouth/Throat: NL Teeth, Lips, Gums, Clear Oropharnyx, Mucous Membranes Moist Neck: NL Appearance and Movements; NL JVP, Trachea Midline Respiratory: Symmetrical Chest Expansion and Respiratory Effort, Clear to Auscultation Cardiovascular: NL Sounds; No Murmurs; No JVD, RRR, No Edema Abdominal: NL Sounds; No Tenderness; No Distention, No Hepatosplenomegaly Lymphatic: No Cervical Adenopathy Extremities: No Edema, No Clubbing, Cyanosis Skin: No Rash or Ulcers, No Nodules or Sclerosis Neurological: Alert and Oriented x 3, - - Dimininshed sensation in B/L LE. 3/5 strength in B/L LE. Flat affect. Result Diagrams: 08/29/18 07:22 08/29/18 07:22 Assess/Plan/Problems-Billing Assessment: Mr. Beasley is a 68 yo M with PMH of CAD s/p CABG, hep C, HTN, HLD, anxiety, depression, and s/p L3/L4 and L4/L5 laminectomy in 2018; who presented to the ED with c/o weakness and was admitted for PT evaluation and pain control and possible need for placement. - Patient Problems (1) Pain in both lower extremities Current Visit: Yes Status: Acute Code(s): M79.604 - PAIN IN RIGHT LEG; M79.605 - PAIN IN LEFT LEG SNOMED Code(s): 50402128 Comment: - With associated weakness - No evidence of cauda equina - S/p lumbar laminectomy in 2018 - MRI thoracic/lumbar spine without acute changes that would require emergent surgery - Appreciate Neurosurgery consult, no need for surgery at this time - PT evaluation - Oxycodone per patient request - Will likely need LULU (2) Anxiety and depression Current Visit: Yes Status: Acute Code(s): F41.9 - ANXIETY DISORDER, UNSPECIFIED; F32.9 - MAJOR DEPRESSIVE DISORDER, SINGLE EPISODE, UNSPECIFIED SNOMED Code(s): 94086761 Comment: - Exacerbated by grief d/t recent of partner - Psych consult appreciated, will reassess today due to continued depression - Continue bupropion, buspirone, fluoxetine, pamelor - Feels as if buproprion has been causing him to see shadows in the corners of his vision - Possible adjunctive therapy with atypical antipsychotic? - Spiritual care consult requested. (3) CAD (coronary artery disease) Current Visit: Yes Status: Acute Code(s): I25.10 - ATHSCL HEART DISEASE OF [place] CORONARY ARTERY W/O ANG PCTRS SNOMED Code(s): 24452443 Comment: - Stable - S/p CABG in 2011 - Continue aspirin - Patient unable to state why he is not on a statin but thinks there was a reason he is not - Will defer starting one to outpatient. (4) Hypertension Current Visit: Yes Status: Acute Code(s): I10 - ESSENTIAL (PRIMARY) HYPERTENSION SNOMED Code(s): 03169297 Comment: - Normotensive, SBP 120-130s - Continue diltiazem (5) Lumbar stenosis Current Visit: No Status: Acute Code(s): M48.061 - SPINAL STENOSIS, LUMBAR REGION WITHOUT NEUROGENIC CATE SNOMED Code(s): 09734583 (6) DVT prophylaxis Current Visit: Yes Status: Acute Code(s): OUK9625 - SNOMED Code(s): 285675940 Comment: - Heparin SubQ (7) Full code status Current Visit: Yes Status: Acute Code(s): Z78.9 - OTHER SPECIFIED HEALTH STATUS SNOMED Code(s): 466827473 Comment: Status and Disposition: Inpatient for back pain and weakness, will likely need LULU.
[2018-08-29] MEDS ORDERED: Gabapentin CAP(*) 300 MG PO SCH ×2 (14:00→21:00)
[2018-08-29] MEDS: Heparin VIAL(*) 5000 UNITS/ML VIAL (FIVE THOUSAND) SUBCUT SCH ×2 (15:12→23:38)
--- NOTE | 2018-08-29 16:21 | CONSULT ---
Identification - Patient Identification Reason for Psychiatric Consultation: Suicidal Ideation -: Patient is a 68 year old, M admitted on 08/28/18. - MHU Identification Employment Status: Disabled Hx Psychiatric Hospitalization: No History - Objective HPI: Korey is seen for follow up after being evaluated over the weekend by on-call psychiatrist Dr. Byrne secondary to complaints of depressed mood and suicidal statements made to the primary team. Today the patient denies SI. He is concerned that roughly one week ago his outpatient provider, Dr. Bernal, added a trial of bupropion to his regimen as an antidepressant augmentation strategy. "Ever since I'm noticing shadows in my peripheral vision that look like people. " He also talks at length about a recent loss he experienced in his personal life. "My partner of 45 years, Chucky, this June, and I'm still very much grieving." He notes that his sister and two brothers in [place] attended the service, which shocked him, as they had never improved of his sexuality or lifestyle before this. "I felt so great about that, and yet so terrible at the same time." I offered Korey a change in his antidepressant regimen, however, he declines this, saying "No, I trust Dr. Bernal. He's a good doctor. Let's see how I do over the next month and then I'll call someone like you." He denies the need for a 1:1. I suggested meeting with our [facility] sales donor recruitment representative's service, which he agreed to. He welcomed me to come back tomorrow to speak with him some more. Exam Appearance: Well Developed/Nourished Hygiene: Normal Grooming: Well Kept Psychomotor Activities: Normal Exhibits Abnormal Movement: No Attitude and Relatedness: Cooperative Eye Contact: Good - Speech Quality: Unpressured Latencies: Normal Quantity: Appropriate Patient's Decription of Mood: "Sad" Observed Affect: Tearful Affect Consistent with: Dysphoria Patient's Thought Process: Coherent Thought Content: No Passive Wish, No Suicidal Planning, No Homicidal Ideation, No Paranoid Ideation Experiencing Hallucinations: No, Sensorium is Clear Type of Hallucinations: Visual: No, Auditory: No, Command: No Level of Consciousness: Alert Orientation: Yes Intact, Yes Orientated to Time, Yes Orientated to Place, Yes Orientated to Person Impulse Control: Tenuous Insight and Judgement: Fair Impression - Impression Clinical Impression: 68 y.o. single, recently bereaved, homosexual black male admitted to the hospitalist service with weakness in his legs and falling, who subsequently endorsed depressed mood and made a suicidal statement. Inpatient DSM-V Dx: F33.1 Merits Inpatient Hospitalization: Yes BSU: Problem List - Patient Problems (1) MDD (major depressive disorder), recurrent episode, moderate Current Visit: Yes Status: Acute Priority: Medium Code(s): F33.1 - MAJOR DEPRESSIVE DISORDER, RECURRENT, MODERATE SNOMED Code(s): 262057934 Plan - Treatment Plan Treatment Plan: The patient denies SI and does not require 1:1 observations. I do not see his case warranting inpatient psychiatric stabilization at this time, but he is grieving significantly and would benefit from some therapeutic listening. I spoke about his case with [facility] sales donor recruitment representative Dale Fowler, who was already consulted but hadn't seen the patient yet. The patient is resisting changes to his antidepressant regimen, which currently includes fluoxetine, nortriptyline, busiparone and bupropion. Psychiatry will continue to follow. Continued Medication Management: Continue Outpt Medication Medications: Current Medications Acetam/Aspirin/Caff/Calcium Glucon (Excedrin Extra Strength 250-250-65 Mg (Nf)) 3 tab PO DAILY PRN PRN Reason: HEADACHE Acetaminophen (Tylenol Tab*) 650 mg PO Q4H PRN PRN Reason: PAIN Albuterol (Ventolin Hfa Inhaler*) 2 puff INH TID PRN PRN Reason: SOB/WHEEZING Aspirin (Aspirin 81 Mg Chew Tab*) 81 mg PO DAILY [facility] Last Admin: 08/29/18 09:34 Dose: 81 mg Bisacodyl (Dulcolax Ec Tab*) 5 mg PO BEDTIME [facility] Last Admin: 08/28/18 22:15 Dose: 5 mg Bupropion HCl (Wellbutrin Xl *) 150 mg PO DAILY [facility] Last Admin: 08/29/18 09:32 Dose: 150 mg Buspirone HCl (Buspar Tab*) 30 mg PO TID [facility] Last Admin: 08/29/18 15:12 Dose: 30 mg Cyanocobalamin (Vitamin B12 Tab*) 1,000 mcg PO DAILY [facility] Diltiazem HCl (Cardizem Cd Cap*) 120 mg PO DAILY [facility] Last Admin: 08/29/18 09:35 Dose: 120 mg Famotidine (Pepcid Tab*) 20 mg PO BID [facility]; Protocol Last Admin: 08/29/18 09:35 Dose: 20 mg Fluoxetine HCl (Prozac Cap*) 40 mg PO BID [facility] Last Admin: 08/29/18 09:36 Dose: 40 mg Fluticasone Propionate (Flonase Nasal [place] 50mcg*) 2 spray BOTH NARES QAM PRN PRN Reason: CONGESTION Last Admin: 08/26/18 11:26 Dose: 2 spray Gabapentin (Neurontin Cap(*)) 300 mg PO DAILY [facility] Gabapentin (Neurontin Cap(*)) 900 mg PO BEDTIME [facility] Heparin Sodium (Porcine) (Heparin Vial(*)) 5,000 units SUBCUT Q8HR [facility] Last Admin: 08/29/18 15:12 Dose: 5,000 units Magnesium Oxide (Magox 400 Tab*) 400 mg PO DAILY [facility] Last Admin: 08/29/18 09:37 Dose: 400 mg Montelukast Sodium (Singulair Tab*) 10 mg PO DAILY PRN PRN Reason: Allergies/cough Nortriptyline HCl (Pamelor Cap*) 75 mg PO BEDTIME [facility] Last Admin: 08/28/18 22:13 Dose: 75 mg Oxycodone HCl (Roxycodone Tab*) 5 mg PO Q4H PRN PRN Reason: PAIN Last Admin: 08/29/18 15:12 Dose: 5 mg Polyethylene Glycol/Electrolytes (Miralax*) 17 gm PO 0800,2100 [facility] Last Admin: 08/29/18 09:41 Dose: Not Given
[2018-08-29] MEDS: Nortriptyline CAP* 25 MG PO SCH (23:25)
[2018-08-29] MEDS: Bisacodyl EC TAB* 5 MG PO SCH (23:28)
[2018-08-30] MEDS: Heparin VIAL(*) 5000 UNITS/ML VIAL (FIVE THOUSAND) SUBCUT SCH ×3 (05:54→22:55)
[2018-08-30 07:22] LABS: Calcium 10.1 mg/dL (8.6-10.3); EGFR Non-African American 95.1 (>60); Potassium 4.5 mmol/L (3.5-5.0)
[2018-08-30] MEDS: Polyethylene Glycol 3350* 17 GM PACKET PO SCH (10:24)
[2018-08-30] MEDS: Famotidine TAB* 20 MG PO SCH ×2 (10:26→22:55)
[2018-08-30] MEDS: Magnesium Oxide TAB* 400 MG PO SCH (10:26)
[2018-08-30] MEDS: Aspirin 81 mg CHEW TAB* 81 MG TAB.CHEW PO SCH (10:26)
[2018-08-30] MEDS: FLUoxetine CAP* 20 MG PO SCH ×2 (10:26→22:55)
[2018-08-30] MEDS: Cyanocobalamin TAB* 500 MCG PO SCH (10:26)
[2018-08-30] MEDS: Diltiazem CD CAP* 120 MG PO SCH (10:26)
[2018-08-30] MEDS: Gabapentin CAP(*) 300 MG PO SCH ×2 (10:26→22:53)
[2018-08-30] MEDS: BuPROPion XL* 150 MG TAB.XL PO SCH (10:26)
[2018-08-30] MEDS: busPIRone TAB* 10 MG PO SCH ×3 (10:41→22:53)
--- NOTE | 2018-08-30 14:03 | PN ---
Subjective Date of Service: 08/30/18 Interval History: Patient seen and examined. No acute overnight events. Patient seems annoyed to be examined and is not engaging in conversation. States he has no chest pain, no SOB, he is OOB to chair with PT today and not complaining of back pain. Family History: Unchanged from Admission Social History: Unchanged from Admission Past Medical History: Unchanged from Admission Objective Active Medications: Acetam/Aspirin/Caff/Calcium Glucon (Excedrin Extra Strength 250-250-65 Mg (Nf)) 3 tab PO DAILY PRN PRN Reason: HEADACHE Acetaminophen (Tylenol Tab*) 650 mg PO Q4H PRN PRN Reason: PAIN Albuterol (Ventolin Hfa Inhaler*) 2 puff INH TID PRN PRN Reason: SOB/WHEEZING Aspirin (Aspirin 81 Mg Chew Tab*) 81 mg PO DAILY [facility] Last Admin: 08/30/18 10:26 Dose: 81 mg Bisacodyl (Dulcolax Ec Tab*) 5 mg PO BEDTIME [facility] Last Admin: 08/29/18 23:28 Dose: 5 mg Bupropion HCl (Wellbutrin Xl *) 150 mg PO DAILY [facility] Last Admin: 08/30/18 10:26 Dose: 150 mg Buspirone HCl (Buspar Tab*) 30 mg PO TID [facility] Last Admin: 08/30/18 10:41 Dose: 30 mg Cyanocobalamin (Vitamin B12 Tab*) 1,000 mcg PO DAILY [facility] Last Admin: 08/30/18 10:26 Dose: 1,000 mcg Diltiazem HCl (Cardizem Cd Cap*) 120 mg PO DAILY [facility] Last Admin: 08/30/18 10:26 Dose: 120 mg Famotidine (Pepcid Tab*) 20 mg PO BID [facility]; Protocol Last Admin: 08/30/18 10:26 Dose: 20 mg Fluoxetine HCl (Prozac Cap*) 40 mg PO BID [facility] Last Admin: 08/30/18 10:26 Dose: 40 mg Fluticasone Propionate (Flonase Nasal [place] 50mcg*) 2 spray BOTH NARES QAM PRN PRN Reason: CONGESTION Last Admin: 08/26/18 11:26 Dose: 2 spray Gabapentin (Neurontin Cap(*)) 300 mg PO DAILY [facility] Last Admin: 08/30/18 10:26 Dose: 300 mg Gabapentin (Neurontin Cap(*)) 900 mg PO BEDTIME [facility] Last Admin: 08/29/18 23:26 Dose: 900 mg Heparin Sodium (Porcine) (Heparin Vial(*)) 5,000 units SUBCUT Q8HR [facility] Last Admin: 08/30/18 05:54 Dose: 5,000 units Magnesium Oxide (Magox 400 Tab*) 400 mg PO DAILY [facility] Last Admin: 08/30/18 10:26 Dose: 400 mg Montelukast Sodium (Singulair Tab*) 10 mg PO DAILY PRN PRN Reason: Allergies/cough Nortriptyline HCl (Pamelor Cap*) 75 mg PO BEDTIME [facility] Last Admin: 08/29/18 23:25 Dose: 75 mg Oxycodone HCl (Roxycodone Tab*) 5 mg PO Q4H PRN PRN Reason: PAIN Last Admin: 08/29/18 23:34 Dose: 5 mg Polyethylene Glycol/Electrolytes (Miralax*) 17 gm PO 0800,2100 [facility] Last Admin: 08/30/18 10:24 Dose: Not Given Vital Signs - 8 hr 08/30/18 08/30/18 08/30/18 07:36 10:26 11:12 Temperature 98.3 F 98.7 F Pulse Rate 81 91 Respiratory 18 18 18 Rate Blood Pressure 128/86 116/66 (mmHg) O2 Sat by Pulse 100 100 Oximetry Oxygen Devices in Use Now: None Appearance: alert, NAD Eyes: No Scleral Icterus, PERRLA Ears/Nose/Mouth/Throat: NL Teeth, Lips, Gums Neck: NL Appearance and Movements; NL JVP, Trachea Midline Respiratory: Symmetrical Chest Expansion and Respiratory Effort, Clear to Auscultation Cardiovascular: NL Sounds; No Murmurs; No JVD, RRR, No Edema Abdominal: NL Sounds; No Tenderness; No Distention Extremities: No Edema, No Clubbing, Cyanosis Skin: No Rash or Ulcers Neurological: Alert and Oriented x 3, NL Sensation, NL Muscle Strength and Tone Nutrition: Taking PO's Result Diagrams: 08/29/18 07:22 08/30/18 06:10 Assess/Plan/Problems-Billing Assessment: Mr. Beasley is a 68 yo M with PMH of CAD s/p CABG, hep C, HTN, HLD, anxiety, depression, and s/p L3/L4 and L4/L5 laminectomy in 2018; who presented to the ED with c/o weakness and was admitted for PT evaluation and pain control and possible need for placement. - Patient Problems (1) Pain in both lower extremities Code(s): M79.604 - PAIN IN RIGHT LEG; M79.605 - PAIN IN LEFT LEG SNOMED Code(s ): 70920754 Comment: - With associated weakness - No evidence of cauda equina - S/p lumbar laminectomy in 2018 - MRI thoracic/lumbar spine without acute changes - Neurosurgery signed off, no need for surgery at this time - PT recommends LULU, pending placement (2) Anxiety and depression Code(s): F41.9 - ANXIETY DISORDER, UNSPECIFIED; F32.9 - MAJOR DEPRESSIVE DISORDER, SINGLE EPISODE, UNSPECIFIED SNOMED Code(s): 95279748 Comment: - Exacerbated by grief d/t recent of partner - Psych consult appreciated, please refer to notes/recs by Dr. Juarez - Continue bupropion, buspirone, fluoxetine, pamelor - Spiritual care consult requested (3) CAD (coronary artery disease) Code(s): I25.10 - ATHSCL HEART DISEASE OF [place] CORONARY ARTERY W/O ANG PCTRS SNOMED Code(s): 81489961 Comment: - Stable, continue ASA, not on statin, should follow up outpatient (4) Hypertension Code(s): I10 - ESSENTIAL (PRIMARY) HYPERTENSION SNOMED Code(s): 66353445 Comment: - Stable on diltiazem (5) DVT prophylaxis Code(s): GBA9819 - SNOMED Code(s): 131559792 Comment: - Heparin SubQ (6) Full code status Code(s): Z78.9 - OTHER SPECIFIED HEALTH STATUS SNOMED Code(s): 456549887 Comment: Status and Disposition: Medically clear for STR when bed available.
[2018-08-30] MEDS: oxyCODONE TAB* 5 MG TAB PO PRN ×2 (14:41→23:04)
--- NOTE | 2018-08-30 16:20 | CONSULT ---
Identification - Patient Identification Reason for Psychiatric Consultation: Suicidal Ideation -: Patient is a 68 year old, M admitted on 08/28/18. - MHU Identification Employment Status: Disabled Hx Psychiatric Hospitalization: No History - Objective HPI: Korey continues to present as depressed and grieving. He denies experiencing visual disturbances from bupropion today and continues to deny SI. He talks at length about his tumultuous relationship with his recently partner and the stress it has placed him under, including the financial stress of the loss of this person's income. He was subsequently forced to move into a much smaller apartment in July and many of his belongings remain boxed up. "I'm too tired to even go in and get some of those things." He feels supported by his [employer], but most of his family remains in the [facility] and many of them do not accept his homosexual orientation. He is open to receiving psychotherapy. Exam Appearance: Well Developed/Nourished Hygiene: Normal Grooming: Well Kept Psychomotor Activities: Normal Exhibits Abnormal Movement: No Attitude and Relatedness: Cooperative Eye Contact: Good - Speech Quality: Unpressured Latencies: Normal Quantity: Appropriate Patient's Decription of Mood: "Sad" Observed Affect: Tearful Affect Consistent with: Dysphoria Patient's Thought Process: Coherent Thought Content: No Passive Wish, No Suicidal Planning, No Homicidal Ideation, No Paranoid Ideation Experiencing Hallucinations: No, Sensorium is Clear Type of Hallucinations: Visual: No, Auditory: No, Command: No Level of Consciousness: Alert Orientation: Yes Intact, Yes Orientated to Time, Yes Orientated to Place, Yes Orientated to Person Impulse Control: Tenuous Insight and Judgement: Fair Impression - Impression Clinical Impression: 68 y.o. single, recently bereaved, homosexual black male admitted to the hospitalist service with weakness in his legs and falling, who subsequently endorsed depressed mood and made a suicidal statement. Inpatient DSM-V Dx: F33.1 Merits Inpatient Hospitalization: No BSU: Problem List - Patient Problems (1) MDD (major depressive disorder), recurrent episode, moderate Current Visit: Yes Status: Acute Priority: Medium Code(s): F33.1 - MAJOR DEPRESSIVE DISORDER, RECURRENT, MODERATE SNOMED Code(s): 105336235 Plan - Treatment Plan Treatment Plan: The patient denies SI and does not require 1:1 observations. I do not see his case warranting inpatient psychiatric stabilization at this time, but he is grieving significantly and would benefit from some therapeutic listening. Await switcher's consult. The patient is resisting changes to his antidepressant regimen, which currently includes fluoxetine, nortriptyline, busiparone and bupropion. Psychiatry will continue to follow. Continued Medication Management: Continue Outpt Medication Medications: Current Medications Acetam/Aspirin/Caff/Calcium Glucon (Excedrin Extra Strength 250-250-65 Mg (Nf)) 3 tab PO DAILY PRN PRN Reason: HEADACHE Acetaminophen (Tylenol Tab*) 650 mg PO Q4H PRN PRN Reason: PAIN Albuterol (Ventolin Hfa Inhaler*) 2 puff INH TID PRN PRN Reason: SOB/WHEEZING Aspirin (Aspirin 81 Mg Chew Tab*) 81 mg PO DAILY [facility] Last Admin: 08/30/18 10:26 Dose: 81 mg Bisacodyl (Dulcolax Ec Tab*) 5 mg PO BEDTIME [facility] Last Admin: 08/29/18 23:28 Dose: 5 mg Bupropion HCl (Wellbutrin Xl *) 150 mg PO DAILY [facility] Last Admin: 08/30/18 10:26 Dose: 150 mg Buspirone HCl (Buspar Tab*) 30 mg PO TID [facility] Last Admin: 08/30/18 14:41 Dose: 30 mg Cyanocobalamin (Vitamin B12 Tab*) 1,000 mcg PO DAILY [facility] Last Admin: 08/30/18 10:26 Dose: 1,000 mcg Diltiazem HCl (Cardizem Cd Cap*) 120 mg PO DAILY [facility] Last Admin: 08/30/18 10:26 Dose: 120 mg Famotidine (Pepcid Tab*) 20 mg PO BID [facility]; Protocol Last Admin: 08/30/18 10:26 Dose: 20 mg Fluoxetine HCl (Prozac Cap*) 40 mg PO BID [facility] Last Admin: 08/30/18 10:26 Dose: 40 mg Fluticasone Propionate (Flonase Nasal [place] 50mcg*) 2 spray BOTH NARES QAM PRN PRN Reason: CONGESTION Last Admin: 08/26/18 11:26 Dose: 2 spray Gabapentin (Neurontin Cap(*)) 300 mg PO DAILY [facility] Last Admin: 08/30/18 10:26 Dose: 300 mg Gabapentin (Neurontin Cap(*)) 900 mg PO BEDTIME [facility] Last Admin: 08/29/18 23:26 Dose: 900 mg Heparin Sodium (Porcine) (Heparin Vial(*)) 5,000 units SUBCUT Q8HR [facility] Last Admin: 08/30/18 14:40 Dose: 5,000 units Magnesium Oxide (Magox 400 Tab*) 400 mg PO DAILY [facility] Last Admin: 08/30/18 10:26 Dose: 400 mg Montelukast Sodium (Singulair Tab*) 10 mg PO DAILY PRN PRN Reason: Allergies/cough Nortriptyline HCl (Pamelor Cap*) 75 mg PO BEDTIME [facility] Last Admin: 08/29/18 23:25 Dose: 75 mg Oxycodone HCl (Roxycodone Tab*) 5 mg PO Q4H PRN PRN Reason: PAIN Last Admin: 08/30/18 14:41 Dose: 5 mg Polyethylene Glycol/Electrolytes (Miralax*) 17 gm PO 0800,2100 [facility] Last Admin: 08/30/18 10:24 Dose: Not Given - Discharge Plan Discharge Plan: Outpatient Follow Up
[2018-08-30] MEDS: Bisacodyl EC TAB* 5 MG PO SCH (22:52)
[2018-08-31] MEDS: Polyethylene Glycol 3350* 17 GM PACKET PO SCH ×2 (03:30→07:53)
[2018-08-31] MEDS: oxyCODONE TAB* 5 MG TAB PO PRN ×2 (03:32→10:19)
[2018-08-31] MEDS: Nortriptyline CAP* 25 MG PO SCH (03:33)
[2018-08-31] MEDS: Heparin VIAL(*) 5000 UNITS/ML VIAL (FIVE THOUSAND) SUBCUT SCH ×2 (07:11→14:52)
[2018-08-31] MEDS: Magnesium Oxide TAB* 400 MG PO SCH (10:12)
[2018-08-31] MEDS: FLUoxetine CAP* 20 MG PO SCH (10:12)
[2018-08-31] MEDS: busPIRone TAB* 10 MG PO SCH ×2 (10:12→14:52)
[2018-08-31] MEDS: Diltiazem CD CAP* 120 MG PO SCH (10:12)
[2018-08-31] MEDS: Aspirin 81 mg CHEW TAB* 81 MG TAB.CHEW PO SCH (10:12)
[2018-08-31] MEDS: BuPROPion XL* 150 MG TAB.XL PO SCH (10:13)
[2018-08-31] MEDS: Famotidine TAB* 20 MG PO SCH (10:13)
[2018-08-31] MEDS: Gabapentin CAP(*) 300 MG PO SCH (10:13)
[2018-08-31] MEDS: Cyanocobalamin TAB* 500 MCG PO SCH (10:13)
--- NOTE | 2018-08-31 12:39 | DS ---
AMENDED REPORT NOW INCLUDES COSIGNER DESIGNATION CC: Dr. Marty Bernal; Dr. Prado, Neurosurgery * DATE OF ADMISSION: 08/28/2018. DATE OF DISCHARGE: 08/31/2018. PRIMARY CARE PHYSICIAN: Dr. Marty Bernal. MY ATTENDING PHYSICIAN FOR TODAY: Dr. Enriqueta Judge * (dictated by Darrell Perez NP). HOSPITAL COURSE: Please refer to admission history and physical dated 2018. In short, this is a 68-year-old gentleman with a past medical history of coronary artery disease, hepatitis C, hypertension, hyperlipidemia, anxiety, major depressive disorder, chronic lumbar back pain, spinal stenosis, and osteoarthritis who presented to the emergency room with complaint of bilateral lower extremity weakness and frequent falls. The patient was imaged extensively in the emergency department. His imaging did not show any acute changes from previous. He does have a history of a lumbar laminectomy in the past. He did not have cauda equina syndrome. He was evaluated by Neurosurgery who determined there was no urgent surgical intervention that was required. They recommended conservative management, pain control and physical therapy. Physical Therapy did recommend that the patient has skilled needs. His vitals and laboratories remain stable throughout the duration of his admission. The patient does, however, have history of depression and was making some passive suicidal statements. For this reason he was seen by Dr. Mike Juarez from Psychiatry. Dr. Juarez met with the patient and determined that the patient was not suicidal or homicidal, that he did have some impaired grieving. He had his lifelong partner of 40+ years who has recently been and this is contributing to the patient's depression and should continue outpatient follow up. The patient was medically stable for discharge to [facility] on the 30 of August; however, the patient is pending insurance authorization for his placement. DISCHARGE DIAGNOSES: 1. Bilateral lower extremity pain with associated weakness secondary to chronic lumbar degenerative changes with resulting gait dysfunction. 2. History of anxiety and depression with impaired grieving cleared by psychiatry. 3. History of coronary artery disease, stable on aspirin. 4. History of hypertension, currently stable. DISCHARGE MEDICATIONS: 1. Gabapentin 300 mg in the morning, 900 mg at bedtime. 2. Pamelor 75 mg p.o. at bedtime. 3. Albuterol two puffs inhaled 3 times a day as needed. 4. BuSpar 30 mg three times a day. 5. Aspirin one tablet daily. 6. Prozac 40 mg two times a day. 7. Fluticasone nasal spray once daily. 8. Zantac 150 mg two times a day. 9. Singular 10 mg daily as needed. 10. Wellbutrin XL 150 mg p.o. daily. 11. Diltiazem 120 mg p.o. daily. 12. Excedrin migraine as needed. 13. New medication: Oxycodone 5 mg p.o. q.4 hours as needed. REVIEW OF SYSTEMS: A ten point review of systems is currently negative except as noted in the hospital course above. PHYSICAL EXAMINATION: General: The patient is awake, alert, in no acute distress. Vital Signs: Blood pressure 123/61, heart rate 79, respiratory rate 18, O2 saturation 99 percent on room air, temperature 98.4. HEENT: The patient is atraumatic, normocephalic. PERRLA with nonicteric sclerae. Oral mucosa is moist. Tongue is midline. Neck: Supple, nontender, no JVD noted, no carotid bruit auscultated. Cardiovascular: S1, S2 present. Rate and rhythm were regular. No murmurs, gallops, or rubs. Lungs: Clear bilaterally to auscultation with no wheezing, rhonchi or rales. Abdomen: Soft, nontender, nondistended. Positive bowel sounds all four quadrants. : Deferred. Musculoskeletal: There is no clubbing, no cyanosis, no edema. He has full range of motion. Gross motor and sensation are intact. He does have some general weakness with ambulation. Neurologic: He is grossly intact with no focal deficit. Psychiatric: He does have a flat affect and can have dysthymic mood at times, but is currently appropriate. LABORATORY DATA: WBC 9.3, RBC 3.76, hemoglobin 11.8, hematocrit 35, platelets 263; sodium 132, potassium 4.5, chloride 98, CO2 25, BUN 17, creatinine 0.81, GFR 115, glucose 119, calcium 10.0, magnesium 2.0, LFT's within normal limits, B12 250, TSH 0.89. Urinalysis is negative for any acute infective process. Urine toxicology screen was negative for any illicit drugs. IMAGING: The patient had lumbar and thoracic MRI's and CAT scans. 1. MRI lumbar spine: Impression: L3-4: Postsurgical changes showing decompressive laminectomy with mild annular disc bulge; advanced facet joint osteoarthritis resulting in moderate acquired central canal stenosis and moderately severe right and moderate left foraminal stenosis without significant change. L4-5: Postsurgical changes, but again no great changes from previous imaging. 2. MRI thoracic spine: Impression: Moderate severe dorsal spondylitic ridging disk complex is noted at C6 to C7 and C7 to T1 with resulting mild impression on the thecal sac at both levels. No significant interval change. No significant degenerative spondylosis at the thoracic spine. Negative for acquired central canal stenosis. At T1-2, there is facet joint osteoarthritis resulting in moderate left unilateral foraminal stenosis. DISPOSITION: The patient was accepted to [facility] for physical rehab. DIET: He should have heart-healthy diet as tolerated. ACTIVITY: Progress as tolerated. FOLLOW-UP: The patient was instructed to follow-up with his primary care provider within one to two weeks of discharge from his facility. He can follow- up with Neurosurgery, Dr. Prado or Dr. Mckinley, on an outpatient basis as needed. Psychiatry also recommended that the patient have continued outpatient psychiatric follow-up as well as either bereavement counseling and/or psychotherapy. Again, these should be pursued after discharge from his facility. CONDITION ON DISCHARGE: The patient was discharged in stable condition. All questions were answered. The patient stated his understanding of his discharge instructions. TIME SPENT: Thirty-five minutes developing discharge plan of care. DARRELL PEREZ NP [id number]/CPS #: [id number]/CPS #: [id number] NISSA
--- NOTE | 2018-08-31 13:14 | DS ---
CONTINUATION OF DISCHARGE SUMMARY DATE OF ADMISSION: 08/28/2018. DATE OF DISCHARGE: 08/31/2018. DISCHARGE DIAGNOSES: 1. Bilateral lower extremity pain with associated weakness secondary to chronic lumbar degenerative changes with resulting gait dysfunction. 2. History of anxiety and depression with impaired grieving cleared by psychiatry. 3. History of coronary artery disease, stable on aspirin. 4. History of hypertension, currently stable. DISCHARGE MEDICATIONS: 1. Gabapentin 300 mg in the morning, 900 mg at bedtime. 2. Pamelor 75 mg p.o. at bedtime. 3. Albuterol two puffs inhaled 3 times a day as needed. 4. BuSpar 30 mg three times a day. 5. Aspirin one tablet daily. 6. Prozac 40 mg two times a day. 7. Fluticasone nasal spray once daily. 8. Zantac 150 mg two times a day. 9. Singular 10 mg daily as needed. 10. Wellbutrin XL 150 mg p.o. daily. 11. Diltiazem 120 mg p.o. daily. 12. Excedrin migraine as needed. New medication: Oxycodone 5 mg p.o. q.4 hours as needed. REVIEW OF SYSTEMS: A ten point review of systems is currently negative except as noted in the hospit al course above. PHYSICAL EXAMINATION: General: The patient is awake, alert, in no acute distress. Vital Signs: Blo od pressure 123/61, heart rate 79, respiratory rate 18, O2 saturation 99 percent on room air, tempera ture 98.4. HEENT: The patient is atraumatic, normocephalic. PERRLA with nonicteric sclerae. Oral mucosa is moist. Tongue is midline. Neck: Supple, nontender, no JVD noted, no carotid bruit auscult ated. Cardiovascular: S1, S2 present. Rate and rhythm were regular. No murmurs, gallops, or rubs. Lungs: Clear bilaterally to auscultation with no wheezing, rhonchi or rales. Abdomen: Soft, nont jerry, nondistended. Positive bowel sounds all four quadrants. : Deferred. Musculoskeletal: Th ere is no clubbing, no cyanosis, no edema. He has full range of motion. Gross motor and sensation a re intact. He does have some general weakness with ambulation. Neurologic: He is grossly intact wit h no focal deficit. Psychiatric: He does have a flat affect and can have dysthymic mood at times, b ut is currently appropriate. LABORATORY DATA: WBC 9.3, RBC 3.76, hemoglobin 11.8, hematocrit 35, platelets 263; sodium 132, potas sium 4.5, chloride 98, CO2 25, BUN 17, creatinine 0.81, GFR 115, glucose 119, calcium 10.0, magnesium 2.0, LFT's within normal limits, B12 250, TSH 0.89. Urinalysis is negative for any acute infective process. Urine toxicology screen was negative for any illicit drugs. IMAGING: The patient had lumbar and thoracic MRI's and CAT scans. 1. MRI lumbar spine: Impression: L3-4: Postsurgical changes showing decompressive laminectomy with mild annular disc bulge; advanced facet joint osteoarthritis resulting in moderate acquired central canal stenosis and moderately severe right and moderate left foraminal stenosis without significant c hange. L4-5: Postsurgical changes, but again no great changes from previous imaging. 2. MRI thoracic spine: Impression: Moderate severe dorsal spondylitic ridging disk complex is note d at C6 to C7 and C7 to T1 with resulting mild impression on the thecal sac at both levels. No signi ficant interval change. No significant degenerative spondylosis at the thoracic spine. Negative for acquired central canal stenosis. At T1-2, there is facet joint osteoarthritis resulting in moderate left unilateral foraminal stenosis. DISPOSITION: The patient was accepted to [facility] for physical rehab. DIET: He should have heart-healthy diet as tolerated. ACTIVITY: Progress as tolerated. FOLLOW-UP: The patient was instructed to follow-up with his primary care provider within one to two weeks of discharge from his facility. He can follow-up with Neurosurgery, Dr. Prado or Dr. Gilberot miles, on an outpatient basis as needed. Psychiatry also recommended that the patient have continued ou tpatient psychiatric follow-up as well as either bereavement counseling and/or psychotherapy. Again, these should be pursued after discharge from his facility. CONDITION ON DISCHARGE: The patient was discharged in stable condition. All questions were answered. The patient stated his understanding o f his discharge instructions. TIME SPENT: Thirty-five minutes developing discharge plan of care. DARRELL WERNER JEFFREYAida, [employer] TYPIST [id number]/[facility] #: [id number]
--- NOTE | 2018-08-31 13:53 | CONSULT ---
Identification - Patient Identification Reason for Psychiatric Consultation: Suicidal Ideation -: Patient is a 68 year old, M admitted on 08/28/18. - MHU Identification Employment Status: Disabled Hx Psychiatric Hospitalization: No History - Objective HPI: Korey remains depressed and grieving. He continues to deny SI but is pessimistic about the future, feeling certain that he will be alone without much energy or motivation to build a new life for himself in the absence of his now partner of 45 years. He has been accepted at [place] [facility] and is pending transfer later today. Korey reports that he finds talking about his difficulties quite helpful. I asked him about follow up treatment and he accepted a referral to one of the public clinics in [facility]. He reports having access to transportation through [employer] and stated that he would call one of the clinics after discharge from [facility] as long as he had the contact information. I met with SW afterwards to see that they get him the information. Exam Appearance: Well Developed/Nourished Hygiene: Normal Grooming: Well Kept Psychomotor Activities: Normal Exhibits Abnormal Movement: No Attitude and Relatedness: Cooperative Eye Contact: Good - Speech Quality: Unpressured Latencies: Normal Quantity: Appropriate Patient's Decription of Mood: "Sad" Observed Affect: Tearful Affect Consistent with: Dysphoria Patient's Thought Process: Coherent Thought Content: No Passive Wish, No Suicidal Planning, No Homicidal Ideation, No Paranoid Ideation Experiencing Hallucinations: No, Sensorium is Clear Type of Hallucinations: Visual: No, Auditory: No, Command: No Level of Consciousness: Alert Orientation: Yes Intact, Yes Orientated to Time, Yes Orientated to Place, Yes Orientated to Person Impulse Control: Tenuous Insight and Judgement: Fair Impression - Impression Clinical Impression: 68 y.o. single, recently bereaved, homosexual black male admitted to the hospitalist service with weakness in his legs and falling, who subsequently endorsed depressed mood and made a suicidal statement. Inpatient DSM-V Dx: F33.1 Merits Inpatient Hospitalization: No BSU: Problem List - Patient Problems (1) MDD (major depressive disorder), recurrent episode, moderate Current Visit: Yes Status: Acute Priority: Medium Code(s): F33.1 - MAJOR DEPRESSIVE DISORDER, RECURRENT, MODERATE SNOMED Code(s): 667755815 Plan - Treatment Plan Treatment Plan: The patient denies SI and does not require 1:1 observations. I do not see his case warranting inpatient psychiatric stabilization at this time, but he is grieving significantly and would benefit from some therapeutic listening. Continue antidepressant regimen, which currently includes fluoxetine, nortriptyline, busiparone and bupropion. I have talked with the staff, who are already consulted for placement, and they agree to get him follow up information for [facility]. Psychiatry will be signing off. Thank you for allowing us to participate in the care of this patient. Continued Medication Management: Continue Outpt Medication Medications: Current Medications Acetam/Aspirin/Caff/Calcium Glucon (Excedrin Extra Strength 250-250-65 Mg (Nf)) 3 tab PO DAILY PRN PRN Reason: HEADACHE Acetaminophen (Tylenol Tab*) 650 mg PO Q4H PRN PRN Reason: PAIN Albuterol (Ventolin Hfa Inhaler*) 2 puff INH TID PRN PRN Reason: SOB/WHEEZING Aspirin (Aspirin 81 Mg Chew Tab*) 81 mg PO DAILY [facility] Last Admin: 08/31/18 10:12 Dose: 81 mg Bisacodyl (Dulcolax Ec Tab*) 5 mg PO BEDTIME [facility] Last Admin: 08/30/18 22:52 Dose: 5 mg Bupropion HCl (Wellbutrin Xl *) 150 mg PO DAILY [facility] Last Admin: 08/31/18 10:13 Dose: 150 mg Buspirone HCl (Buspar Tab*) 30 mg PO TID [facility] Last Admin: 08/31/18 10:12 Dose: 30 mg Cyanocobalamin (Vitamin B12 Tab*) 1,000 mcg PO DAILY [facility] Last Admin: 08/31/18 10:13 Dose: 1,000 mcg Diltiazem HCl (Cardizem Cd Cap*) 120 mg PO DAILY [facility] Last Admin: 08/31/18 10:12 Dose: 120 mg Famotidine (Pepcid Tab*) 20 mg PO BID [facility]; Protocol Last Admin: 08/31/18 10:13 Dose: 20 mg Fluoxetine HCl (Prozac Cap*) 40 mg PO BID [facility] Last Admin: 08/31/18 10:12 Dose: 40 mg Fluticasone Propionate (Flonase Nasal [place] 50mcg*) 2 spray BOTH NARES QAM PRN PRN Reason: CONGESTION Last Admin: 08/26/18 11:26 Dose: 2 spray Gabapentin (Neurontin Cap(*)) 300 mg PO DAILY [facility] Last Admin: 08/31/18 10:13 Dose: Not Given Gabapentin (Neurontin Cap(*)) 900 mg PO BEDTIME [facility] Last Admin: 08/30/18 22:53 Dose: 900 mg Heparin Sodium (Porcine) (Heparin Vial(*)) 5,000 units SUBCUT Q8HR [facility] Last Admin: 08/31/18 07:11 Dose: 5,000 units Magnesium Oxide (Magox 400 Tab*) 400 mg PO DAILY [facility] Last Admin: 08/31/18 10:12 Dose: 400 mg Montelukast Sodium (Singulair Tab*) 10 mg PO DAILY PRN PRN Reason: Allergies/cough Nortriptyline HCl (Pamelor Cap*) 75 mg PO BEDTIME [facility] Last Admin: 08/31/18 03:33 Dose: 75 mg Oxycodone HCl (Roxycodone Tab*) 5 mg PO Q4H PRN PRN Reason: PAIN Last Admin: 08/31/18 10:19 Dose: 5 mg Polyethylene Glycol/Electrolytes (Miralax*) 17 gm PO 0800,2100 [facility] Last Admin: 08/31/18 07:53 Dose: Not Given
[2018-08-31 16:22] VITALS: BP 141/70
== END 2018-08-31 16:05 | DRG 552 ==
LOC: ED 01:35 → MED 07:34 → OBSVTOIN 08-28 07:57 → MED 08-30 16:44
PROVIDERS: ADMIT Internal Medicine; ATTEND Hospitalist
DX: M51.36 Other intervertebral disc degeneration, lumbar region (principal); F33.1 Major depressive disorder, recurrent, moderate; R29.6 Repeated falls; I25.10 Atherosclerotic heart disease of native coronary artery without angina pectoris; E78.00 Pure hypercholesterolemia, unspecified; I10 Essential (primary) hypertension; J42 Unspecified chronic bronchitis; M19.90 Unspecified osteoarthritis, unspecified site; H26.9 Unspecified cataract; Z96.643 Presence of artificial hip joint, bilateral; F17.210 Nicotine dependence, cigarettes, uncomplicated; R40.2412 Glasgow coma scale score 13-15, at arrival to emergency department; I45.10 Unspecified right bundle-branch block; F41.9 Anxiety disorder, unspecified; G89.29 Other chronic pain; M47.813 Spondylosis without myelopathy or radiculopathy, cervicothoracic region; E87.6 Hypokalemia; E83.42 Hypomagnesemia; K59.00 Constipation, unspecified; M48.061 Spinal stenosis, lumbar region without neurogenic claudication; M43.16 Spondylolisthesis, lumbar region; Z85.038 Personal history of other malignant neoplasm of large intestine; Z95.1 Presence of aortocoronary bypass graft; Z79.82 Long term (current) use of aspirin; Z72.89 Other problems related to lifestyle; Z80.1 Family history of malignant neoplasm of trachea, bronchus and lung; Z88.8 Allergy status to other drugs, medicaments and biological substances; Z88.5 Allergy status to narcotic agent; Z98.1 Arthrodesis status; I25.2 Old myocardial infarction; Z86.19 Personal history of other infectious and parasitic diseases
CPT/HCPCS: 36415; 70450; 72131; 72146; 72148; 80048; 80053; 80307; 80320; 81003; 82607; 83605; 83735; 84443; 84484; 85025; 93005; 99283; A9270-GY; G0378; G0480; G8978-GP-CL; G8979-GP-CJ; G8987-GO-CK; G8988-GO-CI; J1644; J1885; J2270; J3475

== ENCOUNTER 2020-03-27 11:48 | Inpatient (IN) ==
[2020-03-27] MEDS ORDERED: NS 0.9% 1000 ml BAG 1,000 ML IV ONE ×2 (12:07→14:31)
[2020-03-27 12:45] LABS: ALT 134 U/L (7-52); Albumin/Globulin Ratio 0.9 (1-3); Alkaline Phosphatase 99 U/L (34-104); BUN/Creatinine Ratio 14.4 (8-20); Blood Urea Nitrogen 14 mg/dL (6-24); CO2 Carbon Dioxide 20 mmol/L (22-32); Calcium 9.8 mg/dL (8.6-10.3); Chloride 97 mmol/L (101-111); EGFR African American 93.1 (>60); Globulin 4.7 g/dL (2-4); Glucose 170 mg/dL (70-100); Sodium 128 mmol/L (135-145); Total Protein 8.7 g/dL (6.4-8.9)
[2020-03-27 13:20] LABS: ABS Basophils 0.1 10^3/ul (0-0.2); ABS Eosinophils 0.1 10^3/ul (0-0.6); ABS Monocytes 0.8 10^3/ul (0-0.8); ABS Neutrophils 17.1 10^3/ul (1.5-7.7); Eosinophil % 0.5 %; Hematocrit 37 % (42-52); Hemoglobin 12.3 g/dL (14.0-18.0); Lymphocyte % 5.2 %; Mean Corpuscular HGB Conc 33 g/dL (31-36); Mean Corpuscular Hemoglobin 31 pg (27-31); Mean Corpuscular Volume 94 fL (80-94); Mean Platelet Volume 8.1 fL (7.4-10.4); Platelet Count 319 10^3/uL (150-450); Red Blood Count 3.96 10^6 /uL (4.18-5.48); Red Cell Distribution Width 14 % (10-15); White Blood Count 19.1 10^3/uL (3.5-10.8)
[2020-03-27 13:42] LABS: Anion Gap 11 mmol/L (2-11)
[2020-03-27 14:01] LABS: Urine Appearance Clear; Urine Bilirubin Negative (Negative); Urine Blood 2+ (Negative); Urine Color Yellow; Urine Glucose Negative (Negative); Urine Ketones Negative (Negative); Urine Nitrite Negative (Negative); Urine Protein 1+(30 mg/dL) (Negative); Urine Specific Gravity 1.011 (1.010-1.030); Urine Urobilinogen Negative (Negative)
[2020-03-27 14:07] LABS: Urine Bacteria Absent (Absent); Urine Red Blood Cell Trace(0-2/hpf) (Absent); Urine White Blood Cell Trace(0-5/hpf) (Absent)
[2020-03-27] MEDS ORDERED: Piperacillin/Tazobac ADVAN 3.375 GM in NS 0.9% 100 ml BAG 100 ML IVPB ONE (14:07)
[2020-03-27] MEDS ORDERED: Vancomycin 1,500 MG in NS 0.9% 250 ml 250 ML IVPB ONE (14:07)
[2020-03-27 14:21] LABS: Creatine Kinase 36926 U/L (10-223)
[2020-03-27 14:53] LABS: Potassium Redraw 3.7 mmol/L (3.5-5.0)
[2020-03-27] MEDS ORDERED: Albuterol HFA INHALER 8 gm MDI INH PRN (15:56)
[2020-03-27] MEDS: NS 0.9% 1000 ml BAG 1,000 ML IV SCH (17:41)
[2020-03-28] MEDS: NS 0.9% 1000 ml BAG 1,000 ML IV SCH ×3 (01:01→18:03)
[2020-03-28] MEDS: Venlafaxine XR 75 mg PO SCH (08:21)
[2020-03-28] MEDS ORDERED: Influenza VAC *QUAD* 2020-21* 0.5 ML SYRINGE IM ONE (09:00)
[2020-03-28] MEDS ORDERED: Senna TAB 8.6 mg TAB PO PRN (11:56)
[2020-03-28] MEDS ORDERED: Magnesium Hydroxide LIQ 30 ML UDC PO PRN (11:56)
[2020-03-28] MEDS ORDERED: LORazepam 2 mg VIAL 1 ml IV PUSH ONE (12:06)
[2020-03-28] MEDS ORDERED: Lorazepam PYXIS KEY PRN (12:06)
[2020-03-28] MEDS: Enoxaparin 40 MG/0.4 ML SYR SUBCUT SCH (20:35)
[2020-03-29] MEDS: NS 0.9% 1000 ml BAG 1,000 ML IV SCH (00:25)
[2020-03-29] MEDS ORDERED: Lorazepam PYXIS KEY PRN (06:27)
[2020-03-29] MEDS ORDERED: LORazepam 2 mg VIAL 1 ml IV PUSH ONE (06:27)
[2020-03-29] MEDS: Venlafaxine XR 75 mg PO SCH (09:14)
[2020-03-29 09:35] LABS: CO2 Carbon Dioxide 20 mmol/L (22-32); Calcium 8.2 mg/dL (8.6-10.3); Chloride 111 mmol/L (101-111); Sodium 137 mmol/L (135-145)
[2020-03-29 09:37] LABS: Anion Gap 6 mmol/L (2-11)
[2020-03-29 09:41] LABS: BUN/Creatinine Ratio 8.8 (8-20); Blood Urea Nitrogen 6 mg/dL (6-24); EGFR African American 140.3 (>60); Glucose 132 mg/dL (70-100)
[2020-03-29 11:41] LABS: ABS Eosinophils 0.4 10^3/ul (0-0.6); ABS Lymphocytes 1.8 10^3/ul (1.0-4.8); ABS Monocytes 0.6 10^3/ul (0-0.8); ABS Neutrophils 6.7 10^3/ul (1.5-7.7); Hematocrit 30 % (42-52); Hemoglobin 10.2 g/dL (14.0-18.0); Lymphocyte % 19.1 %; Mean Corpuscular HGB Conc 34 g/dL (31-36); Mean Corpuscular Hemoglobin 32 pg (27-31); Mean Corpuscular Volume 94 fL (80-94); Mean Platelet Volume 8.6 fL (7.4-10.4); Platelet Count 280 10^3/uL (150-450); Red Blood Count 3.18 10^6 /uL (4.18-5.48); Red Cell Distribution Width 14 % (10-15); White Blood Count 9.6 10^3/uL (3.5-10.8)
[2020-03-29 11:59] LABS: Albumin 2.8 g/dL (3.2-5.2); Albumin/Globulin Ratio 0.9 (1-3); BUN/Creatinine Ratio 9.1 (8-20); Calcium 8.8 mg/dL (8.6-10.3); EGFR African American 145.2 (>60); Potassium 3.9 mmol/L (3.5-5.0); Total Bilirubin 0.4 mg/dL (0.2-1.0); Total Protein 5.8 g/dL (6.4-8.9)
[2020-03-29 13:03] LABS: TSH Ultra Thyroid Stim Horm 0.99 mcIU/mL (0.34-5.60)
[2020-03-29 13:15] LABS: Folate 3.21 ng/mL (>3.99)
[2020-03-29 13:19] LABS: Vitamin D Total 25(OH) 19.3 ng/mL (20-50)
[2020-03-29] MEDS ORDERED: Dextrose 50% Syringe 50 ml 25 GM/50 ML SYRINGE IV PUSH PRN (14:48)
[2020-03-29] MEDS: Enoxaparin 40 MG/0.4 ML SYR SUBCUT SCH (21:11)
[2020-03-30 07:23] LABS: ABS Basophils 0.1 10^3/ul (0-0.2); ABS Eosinophils 0.4 10^3/ul (0-0.6); ABS Lymphocytes 2.6 10^3/ul (1.0-4.8); ABS Monocytes 0.8 10^3/ul (0-0.8); ABS Neutrophils 6.2 10^3/ul (1.5-7.7); Eosinophil % 3.8 %; Hematocrit 31 % (42-52); Hemoglobin 10.8 g/dL (14.0-18.0); Lymphocyte % 25.3 %; Mean Corpuscular HGB Conc 35 g/dL (31-36); Mean Corpuscular Hemoglobin 32 pg (27-31); Mean Corpuscular Volume 93 fL (80-94); Mean Platelet Volume 8.5 fL (7.4-10.4); Nucleated Red Blood Cells % 0.1; Platelet Count 310 10^3/uL (150-450); Red Blood Count 3.34 10^6 /uL (4.18-5.48); Red Cell Distribution Width 14 % (10-15); White Blood Count 10.1 10^3/uL (3.5-10.8)
[2020-03-30] MEDS: Venlafaxine XR 75 mg PO SCH (09:45)
[2020-03-30] MEDS: Cholecalciferol (VIT D3) 1,000 unit TAB PO SCH (09:45)
[2020-03-30 09:55] LABS: BUN/Creatinine Ratio 7.8 (8-20); Calcium 9.1 mg/dL (8.6-10.3); EGFR African American 121.6 (>60); EGFR Non-African American 100.5 (>60); Magnesium 1.4 mg/dL (1.9-2.7); Potassium 3.9 mmol/L (3.5-5.0)
[2020-03-30] MEDS ORDERED: Magnesium Sulfate 2 gm BAG 2 GM/50 ML BAG IVPB ONE (18:30)
[2020-03-30] MEDS: Enoxaparin 40 MG/0.4 ML SYR SUBCUT SCH (21:16)
[2020-03-31 06:57] LABS: CO2 Carbon Dioxide 19 mmol/L (22-32); Calcium 8.6 mg/dL (8.6-10.3); Chloride 104 mmol/L (101-111); Magnesium 1.7 mg/dL (1.9-2.7); Sodium 133 mmol/L (135-145)
[2020-03-31 07:03] LABS: Anion Gap 10 mmol/L (2-11); BUN/Creatinine Ratio 13.6 (8-20); Blood Urea Nitrogen 11 mg/dL (6-24); EGFR African American 114.7 (>60); EGFR Non-African American 94.8 (>60); Glucose 160 mg/dL (70-100)
[2020-03-31] MEDS: Venlafaxine XR 75 mg PO SCH (09:35)
[2020-03-31] MEDS: Cholecalciferol (VIT D3) 1,000 unit TAB PO SCH (09:38)
[2020-03-31] MEDS: Enoxaparin 40 MG/0.4 ML SYR SUBCUT SCH (21:30)
[2020-04-01] MEDS: Venlafaxine XR 75 mg PO SCH (08:29)
[2020-04-01] MEDS: Cholecalciferol (VIT D3) 1,000 unit TAB PO SCH (08:32)
[2020-04-01] MEDS: Enoxaparin 40 MG/0.4 ML SYR SUBCUT SCH (21:22)
[2020-04-02] MEDS: Cholecalciferol (VIT D3) 1,000 unit TAB PO SCH (08:40)
[2020-04-02] MEDS: Venlafaxine XR 75 mg PO SCH (08:40)
[2020-04-02] MEDS: Enoxaparin 40 MG/0.4 ML SYR SUBCUT SCH (20:26)
[2020-04-03] MEDS: Venlafaxine XR 75 mg PO SCH (10:39)
[2020-04-03] MEDS: Cholecalciferol (VIT D3) 1,000 unit TAB PO SCH (10:40)
[2020-04-03] MEDS: Enoxaparin 40 MG/0.4 ML SYR SUBCUT SCH (21:00)
[2020-04-04] MEDS: Cholecalciferol (VIT D3) 1,000 unit TAB PO SCH (10:43)
[2020-04-04] MEDS: Venlafaxine XR 75 mg PO SCH (10:46)
[2020-04-04] MEDS: Enoxaparin 40 MG/0.4 ML SYR SUBCUT SCH (20:58)
[2020-04-05 07:45] VITALS: BP 125/67
[2020-04-05] MEDS: Cholecalciferol (VIT D3) 1,000 unit TAB PO SCH (09:52)
[2020-04-05] MEDS: Venlafaxine XR 75 mg PO SCH (09:54)
== END 2020-04-05 11:35 | DRG 565 ==
LOC: ED 11:48 → MED 15:07
PROVIDERS: ADMIT Student in an Organized Health Care Education/Training Program; ATTEND Internal Medicine

== ENCOUNTER 2021-02-24 20:01 | Inpatient (IN) ==
[2021-02-24] MEDS ORDERED: Lidocaine 2% JELLY 10 ML JELLY TOPICAL ONE (20:58)
[2021-02-24 21:03] LABS: ABS Basophils 0.1 10^3/ul (0-0.2); ABS Eosinophils 0.1 10^3/ul (0-0.6); ABS Lymphocytes 2.4 10^3/ul (1.0-4.8); ABS Monocytes 0.7 10^3/ul (0-0.8); ABS Neutrophils 11.9 10^3/ul (1.5-7.7); Eosinophil % 0.7 %; Hematocrit 38 % (42-52); Hemoglobin 13.1 g/dL (14.0-18.0); Lymphocyte % 15.9 %; Mean Corpuscular HGB Conc 35 g/dL (31-36); Mean Corpuscular Hemoglobin 33 pg (27-31); Mean Corpuscular Volume 94 fL (80-94); Mean Platelet Volume 8.4 fL (7.4-10.4); Nucleated Red Blood Cells % 0.1; Platelet Count 579 10^3/uL (150-450); Red Blood Count 4.01 10^6 /uL (4.18-5.48); Red Cell Distribution Width 18 % (10-15); White Blood Count 15.3 10^3/uL (3.5-10.8)
[2021-02-24] MEDS: nitroGLYCERIN DRIP 25,000 MCG/250 ML BTL IV SCH (21:21)
[2021-02-24] MEDS ORDERED: LORazepam 2 mg VIAL 1 ml IV PUSH ONE (21:52)
[2021-02-24] MEDS ORDERED: Lorazepam PYXIS KEY PRN (21:52)
[2021-02-24] MEDS ORDERED: Morphine 4 MG/ML VIAL (1 ml) IV ONE (21:53)
[2021-02-24 22:03] LABS: Troponin I 0.04 ng/mL (<0.03)
[2021-02-24] MEDS ORDERED: Heparin DRIP 25,000 UNITS BAG 25,000 UNITS/500 ML BAG IV SCH (22:45)
[2021-02-24] MEDS ORDERED: Heparin 5000 UNITS/ML 1 mL VIAL IV SCH (23:00)
[2021-02-24 23:23] LABS: Rapid COVID-19 Molecular Undetected (Undetected)
[2021-02-24] MEDS ORDERED: Lidocaine 2% JELLY 6 ML TOPICAL ONE (23:45)
[2021-02-24 23:49] LABS: Albumin 4.4 g/dL (3.2-5.2); CO2 Carbon Dioxide 15 mmol/L (22-32); Calcium 10.2 mg/dL (8.6-10.3); Chloride 101 mmol/L (101-111); Sodium 132 mmol/L (135-145)
[2021-02-24 23:55] LABS: ALT 9 U/L (7-52); Albumin/Globulin Ratio 0.9 (1-3); Alkaline Phosphatase 101 U/L (35-149); Blood Urea Nitrogen 18 mg/dL (6-24); EGFR African American 91.8 (>60); EGFR Non-African American 75.8 (>60); Globulin 4.8 g/dL (2-4); Glucose 132 mg/dL (70-100); Total Protein 9.2 g/dL (6.4-8.9)
[2021-02-24 23:57] LABS: AST 31 U/L (13-39); Anion Gap 16 mmol/L (2-11); Potassium 4.4 mmol/L (3.5-5.0)
[2021-02-24] MEDS ORDERED: Albuterol HFA INHALER 8 gm MDI INH PRN (23:57)
[2021-02-25] MEDS ORDERED: Iohexol 350 (CONTRAST) 500 ML MDV IV ONE (00:04)
[2021-02-25 00:21] LABS: Acetaminophen < 15 mcg/mL
[2021-02-25 00:22] LABS: Troponin I 0.04 ng/mL (<0.03)
[2021-02-25 00:46] LABS: Urine Appearance Cloudy; Urine Bilirubin Negative (Negative); Urine Blood Negative (Negative); Urine Color Amber; Urine Glucose Negative (Negative); Urine Ketones Negative (Negative); Urine Nitrite Negative (Negative); Urine Protein 2+(100 mg/dL) (Negative); Urine Specific Gravity 1.027 (1.002-1.030); Urine Urobilinogen Positive (Negative)
[2021-02-25 00:55] LABS: Urine Benzodiazepine Screen None Detected (None Detect); Urine Cannabinoids Screen None Detected (None Detect); Urine Opiates Screen Presumptive Positive (None Detect)
[2021-02-25 00:58] LABS: C Reactive Protein 2.83 mg/L (<8.01)
[2021-02-25 01:02] LABS: Urine Bacteria Absent (Absent); Urine Red Blood Cell Trace(0-2/hpf) (Absent); Urine White Blood Cell Trace(0-5/hpf) (Absent)
[2021-02-25] MEDS: cefTRIAXone 1 gm/50 mL NS BAG 1 GM/50 ML BAG IVPB SCH ×2 (01:16→22:13)
[2021-02-25 02:33] LABS: PCO2 Arterial 25 mmHg (35-45); PO2 Arterial 90 mmHg (80-100)
[2021-02-25 03:31] LABS: Troponin I 0.04 ng/mL (<0.03)
[2021-02-25] MEDS: nitroGLYCERIN DRIP 25,000 MCG/250 ML BTL IV SCH (03:47)
[2021-02-25 06:03] LABS: ABS Basophils 0.1 10^3/ul (0-0.2); ABS Eosinophils 0.1 10^3/ul (0-0.6); ABS Lymphocytes 3.4 10^3/ul (1.0-4.8); ABS Monocytes 0.9 10^3/ul (0-0.8); ABS Neutrophils 9.6 10^3/ul (1.5-7.7); Hematocrit 37 % (42-52); Hemoglobin 12.7 g/dL (14.0-18.0); Lymphocyte % 24.2 %; Mean Corpuscular HGB Conc 34 g/dL (31-36); Mean Corpuscular Hemoglobin 33 pg (27-31); Mean Corpuscular Volume 97 fL (80-94); Mean Platelet Volume 7.7 fL (7.4-10.4); Platelet Count 501 10^3/uL (150-450); Red Blood Count 3.83 10^6 /uL (4.18-5.48); Red Cell Distribution Width 18 % (10-15); White Blood Count 14.2 10^3/uL (3.5-10.8)
[2021-02-25 06:24] LABS: Calcium 9.8 mg/dL (8.6-10.3); EGFR African American 97.5 (>60); EGFR Non-African American 80.6 (>60); HDL Cholesterol 35.9 mg/dL; Potassium 3.7 mmol/L (3.5-5.0)
[2021-02-25 08:08] LABS: Magnesium 2.1 mg/dL (1.9-2.7); Phosphorus 3.4 mg/dL (2.5-5.0)
[2021-02-25] MEDS: Aspirin EC 81 mg TAB.EC (enteric coated) PO SCH (09:54)
[2021-02-25 12:48] LABS: Chlamydia trachomatis NAA Negative (Negative); Neisseria gonorrhoeae (GC) NAA Negative (Negative)
[2021-02-25] MEDS: Hydrocortisone ENEMA 100 MG BTL PR SCH (14:28)
[2021-02-25 15:54] LABS: HIV 4th Generation Nonreactive (Nonreactive)
[2021-02-26 05:06] LABS: ABS Basophils 0.1 10^3/ul (0-0.2); ABS Eosinophils 0.2 10^3/ul (0-0.6); ABS Lymphocytes 3.1 10^3/ul (1.0-4.8); ABS Monocytes 0.8 10^3/ul (0-0.8); ABS Neutrophils 6.3 10^3/ul (1.5-7.7); Eosinophil % 2.1 %; Hematocrit 39 % (42-52); Hemoglobin 12.9 g/dL (14.0-18.0); Lymphocyte % 29.3 %; Mean Corpuscular HGB Conc 33 g/dL (31-36); Mean Corpuscular Hemoglobin 32 pg (27-31); Mean Corpuscular Volume 98 fL (80-94); Platelet Count 443 10^3/uL (150-450); Red Blood Count 3.97 10^6 /uL (4.18-5.48); Red Cell Distribution Width 17 % (10-15); White Blood Count 10.5 10^3/uL (3.5-10.8)
[2021-02-26 05:24] LABS: Calcium 9.8 mg/dL (8.6-10.3); EGFR African American 108.1 (>60); EGFR Non-African American 89.4 (>60); Potassium 3.7 mmol/L (3.5-5.0)
[2021-02-26] MEDS: Nitro 2% OINT (Nitroglycerin) 1 INCH/PAK TOPICAL SCH ×2 (05:38→12:52)
[2021-02-26] MEDS ORDERED: Perflutren Lipid Microsphere 3 ML VIAL ONE (07:36)
[2021-02-26] MEDS: Lidocaine 2% JELLY 6 ML TOPICAL PRN ×2 (09:18→18:52)
[2021-02-26] MEDS ORDERED: Aminophylline 25 MG/ML VIAL ONE (11:47)
[2021-02-26] MEDS ORDERED: Regadenoson 0.4 MG/5 ML SYRINGE ONE (11:47)
[2021-02-26] MEDS: Aspirin EC 81 mg TAB.EC (enteric coated) PO SCH (12:49)
[2021-02-26] MEDS: Hydrocortisone ENEMA 100 MG BTL PR SCH ×2 (12:50→14:26)
[2021-02-26] MEDS ORDERED: Lactated Ringers 1000 ml BAG 1,000 ML IV ONE (14:07)
[2021-02-26] MEDS: Enoxaparin 40 MG/0.4 ML SYR SUBCUT SCH (14:32)
[2021-02-26] MEDS ORDERED: Nitro Patch/OINT Remove PATCH TOPICAL SCH (18:00)
[2021-02-26] MEDS: hydrALAZINE 20 mg/ml 1 ML Vial IV IV SLOW PU PRN (20:44)
[2021-02-26] MEDS: cefTRIAXone 1 gm/50 mL NS BAG 1 GM/50 ML BAG IVPB SCH (20:44)
[2021-02-27] MEDS: hydrALAZINE 20 mg/ml 1 ML Vial IV IV SLOW PU PRN ×2 (02:57→08:23)
[2021-02-27 06:15] LABS: ABS Basophils 0.1 10^3/ul (0-0.2); ABS Eosinophils 0.2 10^3/ul (0-0.6); ABS Lymphocytes 3.7 10^3/ul (1.0-4.8); ABS Monocytes 0.8 10^3/ul (0-0.8); Eosinophil % 1.5 %; Hematocrit 39 % (42-52); Hemoglobin 12.9 g/dL (14.0-18.0); Lymphocyte % 31.2 %; Mean Corpuscular HGB Conc 34 g/dL (31-36); Mean Corpuscular Hemoglobin 33 pg (27-31); Mean Corpuscular Volume 98 fL (80-94); Nucleated Red Blood Cells % 0.1; Platelet Count 415 10^3/uL (150-450); Red Blood Count 3.95 10^6 /uL (4.18-5.48); Red Cell Distribution Width 17 % (10-15); White Blood Count 11.9 10^3/uL (3.5-10.8)
[2021-02-27 06:32] LABS: Anion Gap 11 mmol/L (2-11); Blood Urea Nitrogen 13 mg/dL (6-24); CO2 Carbon Dioxide 19 mmol/L (22-32); Calcium 9.8 mg/dL (8.6-10.3); Chloride 102 mmol/L (101-111); EGFR African American 121.2 (>60); EGFR Non-African American 100.2 (>60); Glucose 171 mg/dL (70-100); Potassium 3.8 mmol/L (3.5-5.0); Sodium 132 mmol/L (135-145)
[2021-02-27 07:45] LABS: C trachomatis Source RECTAL; N. gonorrhoeae Source RECTAL
[2021-02-27] MEDS: Aspirin EC 81 mg TAB.EC (enteric coated) PO SCH (08:23)
[2021-02-27] MEDS: Hydrocortisone ENEMA 100 MG BTL PR SCH (09:52)
[2021-02-27] MEDS: Lidocaine 2% JELLY 6 ML TOPICAL PRN (10:29)
[2021-02-27] MEDS ORDERED: Morphine 2 MG/ML SYRINGE IV ONE (10:40)
[2021-02-27 12:38] LABS: Troponin I 0.03 ng/mL (<0.03)
[2021-02-27 12:48] LABS: Ferritin 139.7 ng/mL (24-336)
[2021-02-27] MEDS: Enoxaparin 40 MG/0.4 ML SYR SUBCUT SCH (13:27)
[2021-02-27 13:51] LABS: Total Iron Binding Capacity 395 mcg/dL (250-450); Transferrin 282 mg/dL (203-362)
[2021-02-27] MEDS ORDERED: PEG 3000 GI LAVAGE 1 GALLON PO ONE (16:38)
[2021-02-27] MEDS: cefTRIAXone 1 gm/50 mL NS BAG 1 GM/50 ML BAG IVPB SCH (20:34)
[2021-02-28] MEDS: Lidocaine 2% JELLY 6 ML TOPICAL PRN (03:48)
[2021-02-28] MEDS: hydrALAZINE 20 mg/ml 1 ML Vial IV IV SLOW PU PRN (04:07)
[2021-02-28] MEDS ORDERED: Magnesium CITRATE LIQ 300 ML BTL PO ONE (06:00)
[2021-02-28] MEDS ORDERED: Ondansetron 4 mg VIAL 2 MG/ML 2 ml VIAL IV PRN (07:04)
[2021-02-28] MEDS: Aspirin EC 81 mg TAB.EC (enteric coated) PO SCH (09:49)
[2021-02-28] MEDS: Venlafaxine XR 75 mg PO SCH (09:52)
[2021-02-28] MEDS: Hydrocortisone ENEMA 100 MG BTL PR SCH (10:01)
[2021-02-28 13:07] LABS: ABS Basophils 0.1 10^3/ul (0-0.2); ABS Eosinophils 0.2 10^3/ul (0-0.6); ABS Lymphocytes 1.9 10^3/ul (1.0-4.8); ABS Monocytes 0.8 10^3/ul (0-0.8); ABS Neutrophils 6.5 10^3/ul (1.5-7.7); Eosinophil % 2.2 %; Hematocrit 36 % (42-52); Hemoglobin 12.2 g/dL (14.0-18.0); Lymphocyte % 20.2 %; Mean Corpuscular HGB Conc 34 g/dL (31-36); Mean Corpuscular Hemoglobin 33 pg (27-31); Mean Corpuscular Volume 98 fL (80-94); Nucleated Red Blood Cells % 0.1; Platelet Count 356 10^3/uL (150-450); Red Blood Count 3.72 10^6 /uL (4.18-5.48); Red Cell Distribution Width 17 % (10-15); White Blood Count 9.5 10^3/uL (3.5-10.8)
[2021-02-28 13:14] LABS: Calcium 9.7 mg/dL (8.6-10.3); EGFR African American 126.9 (>60); EGFR Non-African American 104.9 (>60); Potassium 3.6 mmol/L (3.5-5.0)
[2021-02-28] MEDS: Enoxaparin 40 MG/0.4 ML SYR SUBCUT SCH (14:22)
[2021-02-28] MEDS ORDERED: Lidocaine 2% PF 5 ML VIAL ONE (15:08)
[2021-02-28] MEDS ORDERED: Glycopyrrolate IV 0.2 MG/ML 1 ML VIAL ONE (15:10)
[2021-02-28] MEDS ORDERED: Esmolol 10 MG/ML 10 ML (100 mg) ONE (16:08)
[2021-02-28] MEDS ORDERED: Naloxone 0.4 mg VIAL 0.4 mg/ml 1 ml VIAL IV PRN ×2 (16:41→17:15)
[2021-02-28] MEDS: cefTRIAXone 1 gm/50 mL NS BAG 1 GM/50 ML BAG IVPB SCH (20:11)
[2021-03-01] MEDS: Lidocaine 2% JELLY 6 ML TOPICAL PRN ×3 (00:41→20:41)
[2021-03-01] MEDS: Venlafaxine XR 75 mg PO SCH (09:05)
[2021-03-01] MEDS: Aspirin EC 81 mg TAB.EC (enteric coated) PO SCH (09:09)
[2021-03-01] MEDS: Hydrocortisone ENEMA 100 MG BTL PR SCH (11:03)
[2021-03-01] MEDS: Enoxaparin 40 MG/0.4 ML SYR SUBCUT SCH (13:12)
[2021-03-01] MEDS ORDERED: Iohexol 300 (CONTRAST) 10 ML SDV IV ONE (14:46)
[2021-03-01] MEDS ORDERED: Gadoteridol (CONTRAST) 279.3 MG/ML 10 ML IV ONE (15:34)
[2021-03-01] MEDS: cefTRIAXone 1 gm/50 mL NS BAG 1 GM/50 ML BAG IVPB SCH (21:10)
[2021-03-02] MEDS: Lidocaine 2% JELLY 6 ML TOPICAL PRN ×4 (06:08→19:39)
[2021-03-02 06:57] LABS: ABS Basophils 0.1 10^3/ul (0-0.2); ABS Eosinophils 0.4 10^3/ul (0-0.6); ABS Lymphocytes 1.9 10^3/ul (1.0-4.8); ABS Monocytes 0.9 10^3/ul (0-0.8); ABS Neutrophils 6.8 10^3/ul (1.5-7.7); Eosinophil % 3.9 %; Hematocrit 36 % (42-52); Hemoglobin 12.1 g/dL (14.0-18.0); Lymphocyte % 18.9 %; Mean Corpuscular HGB Conc 34 g/dL (31-36); Mean Corpuscular Hemoglobin 33 pg (27-31); Mean Corpuscular Volume 97 fL (80-94); Mean Platelet Volume 8.9 fL (7.4-10.4); Platelet Count 328 10^3/uL (150-450); Red Blood Count 3.66 10^6 /uL (4.18-5.48); Red Cell Distribution Width 16 % (10-15)
[2021-03-02 06:59] LABS: Calcium 9.5 mg/dL (8.6-10.3); EGFR African American 144.8 (>60); EGFR Non-African American 119.7 (>60); Potassium 4.3 mmol/L (3.5-5.0)
[2021-03-02] MEDS: Aspirin EC 81 mg TAB.EC (enteric coated) PO SCH (08:42)
[2021-03-02] MEDS: Venlafaxine XR 75 mg PO SCH ×2 (08:42→14:58)
[2021-03-02] MEDS: Hydrocortisone ENEMA 100 MG BTL PR SCH (10:01)
[2021-03-02] MEDS: Enoxaparin 40 MG/0.4 ML SYR SUBCUT SCH (14:59)
[2021-03-03] MEDS: Lidocaine 2% JELLY 6 ML TOPICAL PRN ×3 (08:08→20:24)
[2021-03-03] MEDS: Aspirin EC 81 mg TAB.EC (enteric coated) PO SCH (08:11)
[2021-03-03] MEDS: Venlafaxine XR 75 mg PO SCH (08:15)
[2021-03-03] MEDS: Hydrocortisone ENEMA 100 MG BTL PR SCH (12:37)
[2021-03-03] MEDS: Enoxaparin 40 MG/0.4 ML SYR SUBCUT SCH (15:18)
[2021-03-03 23:24] LABS: Calprotectin 28.3 mcg/g
[2021-03-04] MEDS: Lidocaine 2% JELLY 6 ML TOPICAL PRN ×2 (03:28→10:05)
[2021-03-04 06:07] LABS: ABS Eosinophils 0.4 10^3/ul (0-0.6); ABS Lymphocytes 2.9 10^3/ul (1.0-4.8); ABS Monocytes 0.9 10^3/ul (0-0.8); ABS Neutrophils 4.8 10^3/ul (1.5-7.7); Hematocrit 32 % (42-52); Hemoglobin 10.5 g/dL (14.0-18.0); Lymphocyte % 31.7 %; Mean Corpuscular HGB Conc 33 g/dL (31-36); Mean Corpuscular Hemoglobin 33 pg (27-31); Mean Corpuscular Volume 100 fL (80-94); Mean Platelet Volume 8.7 fL (7.4-10.4); Nucleated Red Blood Cells % 0.1; Platelet Count 268 10^3/uL (150-450); Red Blood Count 3.18 10^6 /uL (4.18-5.48); Red Cell Distribution Width 16 % (10-15); White Blood Count 9.1 10^3/uL (3.5-10.8)
[2021-03-04 06:26] LABS: Calcium 9.1 mg/dL (8.6-10.3); EGFR African American 144.8 (>60); EGFR Non-African American 119.7 (>60); Potassium 4.2 mmol/L (3.5-5.0)
[2021-03-04] MEDS: Aspirin EC 81 mg TAB.EC (enteric coated) PO SCH (07:52)
[2021-03-04] MEDS: Venlafaxine XR 75 mg PO SCH (07:53)
[2021-03-04] MEDS: Hydrocortisone ENEMA 100 MG BTL PR SCH (09:02)
[2021-03-04 12:11] LABS: Pancreatic Elastase Feces >500 mcg/g
[2021-03-04] MEDS: Enoxaparin 40 MG/0.4 ML SYR SUBCUT SCH (13:58)
[2021-03-05 05:43] LABS: Hematocrit 31 % (42-52); Hemoglobin 10.3 g/dL (14.0-18.0); Mean Corpuscular HGB Conc 33 g/dL (31-36); Mean Corpuscular Hemoglobin 33 pg (27-31); Mean Corpuscular Volume 99 fL (80-94); Mean Platelet Volume 7.8 fL (7.4-10.4); Platelet Count 275 10^3/uL (150-450); Red Blood Count 3.14 10^6 /uL (4.18-5.48); Red Cell Distribution Width 16 % (10-15); White Blood Count 9.5 10^3/uL (3.5-10.8)
[2021-03-05 06:03] LABS: Calcium 9.1 mg/dL (8.6-10.3); EGFR African American 139.9 (>60); EGFR Non-African American 115.6 (>60); Potassium 4.2 mmol/L (3.5-5.0)
[2021-03-05 06:49] LABS: ABS Basophils 0.1 10^3/ul (0-0.2); ABS Eosinophils 0.4 10^3/ul (0-0.6); ABS Lymphocytes 2.6 10^3/ul (1.0-4.8); ABS Monocytes 0.8 10^3/ul (0-0.8); ABS Neutrophils 5.6 10^3/ul (1.5-7.7); Eosinophil % 3.9 %; Lymphocyte % 27.7 %
[2021-03-05] MEDS: Aspirin EC 81 mg TAB.EC (enteric coated) PO SCH (10:20)
[2021-03-05] MEDS: Venlafaxine XR 75 mg PO SCH (10:20)
[2021-03-05] MEDS: Lidocaine 2% JELLY 6 ML TOPICAL PRN (10:23)
[2021-03-05] MEDS: Hydrocortisone ENEMA 100 MG BTL PR SCH (10:23)
[2021-03-05] MEDS: Enoxaparin 40 MG/0.4 ML SYR SUBCUT SCH (14:25)
[2021-03-05] MEDS: Morphine ER 15 mg TAB ** extended release PO SCH (17:47)
[2021-03-06 06:25] LABS: ABS Basophils 0.1 10^3/ul (0-0.2); ABS Eosinophils 0.4 10^3/ul (0-0.6); ABS Lymphocytes 3.1 10^3/ul (1.0-4.8); ABS Neutrophils 6.6 10^3/ul (1.5-7.7); Eosinophil % 3.5 %; Hematocrit 29 % (42-52); Hemoglobin 9.7 g/dL (14.0-18.0); Lymphocyte % 27.7 %; Mean Corpuscular HGB Conc 34 g/dL (31-36); Mean Corpuscular Hemoglobin 33 pg (27-31); Mean Corpuscular Volume 98 fL (80-94); Mean Platelet Volume 8.2 fL (7.4-10.4); Platelet Count 270 10^3/uL (150-450); Red Blood Count 2.95 10^6 /uL (4.18-5.48); Red Cell Distribution Width 15 % (10-15); White Blood Count 11.1 10^3/uL (3.5-10.8)
[2021-03-06 06:52] LABS: Calcium 9.4 mg/dL (8.6-10.3); EGFR African American 152.8 (>60); EGFR Non-African American 126.3 (>60)
[2021-03-06] MEDS: Aspirin EC 81 mg TAB.EC (enteric coated) PO SCH (07:40)
[2021-03-06] MEDS: Morphine ER 15 mg TAB ** extended release PO SCH ×2 (07:41→19:41)
[2021-03-06] MEDS: Venlafaxine XR 75 mg PO SCH (07:41)
[2021-03-06] MEDS: Hydrocortisone ENEMA 100 MG BTL PR SCH ×3 (10:19→16:27)
[2021-03-06] MEDS: Enoxaparin 40 MG/0.4 ML SYR SUBCUT SCH (12:21)
[2021-03-07 06:00] LABS: Hematocrit 29 % (42-52); Hemoglobin 9.7 g/dL (14.0-18.0); Mean Corpuscular HGB Conc 33 g/dL (31-36); Mean Corpuscular Hemoglobin 33 pg (27-31); Mean Corpuscular Volume 100 fL (80-94); Mean Platelet Volume 8.3 fL (7.4-10.4); Platelet Count 266 10^3/uL (150-450); Red Blood Count 2.95 10^6 /uL (4.18-5.48); Red Cell Distribution Width 16 % (10-15)
[2021-03-07 06:15] LABS: Calcium 9.3 mg/dL (8.6-10.3); EGFR African American 142.3 (>60); EGFR Non-African American 117.6 (>60); Potassium 4.1 mmol/L (3.5-5.0)
[2021-03-07 08:38] LABS: ABS Eosinophils 0.3 10^3/ul (0-0.6); ABS Lymphocytes 2.8 10^3/ul (1.0-4.8); ABS Neutrophils 6.9 10^3/ul (1.5-7.7); Eosinophil % 2.7 %; Lymphocyte % 25.3 %; Nucleated Red Blood Cells % 0.1
[2021-03-07 08:40] LABS: Macrocytosis 1+; Polychromasia 1+
[2021-03-07] MEDS: Aspirin EC 81 mg TAB.EC (enteric coated) PO SCH (10:37)
[2021-03-07] MEDS: Venlafaxine XR 75 mg PO SCH (10:37)
[2021-03-07] MEDS: Morphine ER 15 mg TAB ** extended release PO SCH ×2 (10:38→20:18)
[2021-03-07] MEDS: Lidocaine 2% JELLY 6 ML TOPICAL PRN (10:39)
[2021-03-07] MEDS: Hydrocortisone ENEMA 100 MG BTL PR SCH (13:35)
[2021-03-07] MEDS: Enoxaparin 40 MG/0.4 ML SYR SUBCUT SCH (15:24)
[2021-03-08] MEDS: Aspirin EC 81 mg TAB.EC (enteric coated) PO SCH (08:21)
[2021-03-08] MEDS: Morphine ER 15 mg TAB ** extended release PO SCH ×2 (08:24→20:33)
[2021-03-08] MEDS: Venlafaxine XR 75 mg PO SCH (08:24)
[2021-03-08] MEDS: Enoxaparin 40 MG/0.4 ML SYR SUBCUT SCH (14:07)
[2021-03-08] MEDS: Hydrocortisone ENEMA 100 MG BTL PR SCH (14:08)
[2021-03-08] MEDS: Lidocaine 2% JELLY 6 ML TOPICAL PRN (23:16)
[2021-03-09] MEDS: Aspirin EC 81 mg TAB.EC (enteric coated) PO SCH (09:28)
[2021-03-09] MEDS: Morphine ER 15 mg TAB ** extended release PO SCH (09:28)
[2021-03-09] MEDS: Venlafaxine XR 75 mg PO SCH (09:28)
[2021-03-09] MEDS: Enoxaparin 40 MG/0.4 ML SYR SUBCUT SCH (14:31)
[2021-03-09] MEDS: Hydrocortisone ENEMA 100 MG BTL PR SCH (17:10)
[2021-03-09] MEDS: Morphine ER 30 mg TAB ** extended release PO SCH (19:56)
[2021-03-10] MEDS: Venlafaxine XR 75 mg PO SCH (09:22)
[2021-03-10] MEDS: Aspirin EC 81 mg TAB.EC (enteric coated) PO SCH (09:23)
[2021-03-10] MEDS: Morphine ER 30 mg TAB ** extended release PO SCH ×2 (09:23→20:26)
[2021-03-10] MEDS: Hydrocortisone ENEMA 100 MG BTL PR SCH (09:24)
[2021-03-10] MEDS: Magnesium Hydroxide LIQ 30 ML UDC PO SCH ×2 (12:08→20:24)
[2021-03-10] MEDS: Docusate LIQ 100 MG/10 ML UDC PO SCH ×2 (12:08→20:24)
[2021-03-10] MEDS: Polyethylene Glycol 3350 17 GM PACKET PO SCH (12:14)
[2021-03-10] MEDS ORDERED: Morphine ER 15 mg TAB ** extended release PO SCH (14:00)
[2021-03-10] MEDS: Enoxaparin 40 MG/0.4 ML SYR SUBCUT SCH (14:48)
[2021-03-10] MEDS: Senna TAB 8.6 mg TAB PO SCH (20:25)
[2021-03-11 07:06] LABS: ABS Eosinophils 0.3 10^3/ul (0-0.6); ABS Lymphocytes 2.1 10^3/ul (1.0-4.8); ABS Monocytes 0.9 10^3/ul (0-0.8); ABS Neutrophils 7.9 10^3/ul (1.5-7.7); Eosinophil % 2.3 %; Hematocrit 28 % (42-52); Hemoglobin 9.3 g/dL (14.0-18.0); Mean Corpuscular HGB Conc 33 g/dL (31-36); Mean Corpuscular Hemoglobin 33 pg (27-31); Mean Corpuscular Volume 98 fL (80-94); Mean Platelet Volume 8.1 fL (7.4-10.4); Platelet Count 270 10^3/uL (150-450); Red Blood Count 2.85 10^6 /uL (4.18-5.48); Red Cell Distribution Width 15 % (10-15); White Blood Count 11.2 10^3/uL (3.5-10.8)
[2021-03-11 07:33] LABS: Calcium 9.4 mg/dL (8.6-10.3); EGFR African American 137.6 (>60); EGFR Non-African American 113.7 (>60); Potassium 4.4 mmol/L (3.5-5.0)
[2021-03-11] MEDS: Aspirin EC 81 mg TAB.EC (enteric coated) PO SCH (08:09)
[2021-03-11] MEDS: Senna TAB 8.6 mg TAB PO SCH (08:09)
[2021-03-11] MEDS: Venlafaxine XR 75 mg PO SCH (08:10)
[2021-03-11] MEDS: Morphine ER 30 mg TAB ** extended release PO SCH (08:13)
[2021-03-11] MEDS: Magnesium Hydroxide LIQ 30 ML UDC PO SCH (08:14)
[2021-03-11] MEDS: Docusate LIQ 100 MG/10 ML UDC PO SCH (08:14)
[2021-03-11] MEDS: Hydrocortisone ENEMA 100 MG BTL PR SCH (08:16)
[2021-03-11] MEDS: Lidocaine 2% JELLY 6 ML TOPICAL PRN (08:16)
[2021-03-11] MEDS: Polyethylene Glycol 3350 17 GM PACKET PO SCH (08:17)
[2021-03-11] MEDS ORDERED: Morphine ER 15 mg TAB ** extended release PO ONE (09:04)
[2021-03-11 11:46] VITALS: BP 108/60
[2021-03-11] MEDS ORDERED: Senna TAB 8.6 mg TAB PO SCH (21:00)
[2021-03-11] MEDS ORDERED: Morphine ER 15 mg TAB ** extended release PO SCH (21:00)
== END 2021-03-11 13:53 | disposition swing bed (61) | DRG 374 ==
LOC: ED 20:01 → SUATTDRO 22:55 → ICU 22:55 → MEDTELE 02-25 22:09 → UNDODISIN 02-28 17:12
PROVIDERS: ADMIT Student in an Organized Health Care Education/Training Program; ATTEND Internal Medicine

== ENCOUNTER 2021-03-11 14:00 | Inpatient (IN) ==
[2021-03-11] MEDS: Enoxaparin 40 MG/0.4 ML SYR SUBCUT SCH (16:25)
[2021-03-11] MEDS: PTO:Mirabegron 25 mg ER TAB (NF) PO SCH (16:29)
[2021-03-11] MEDS ORDERED: Senna TAB 8.6 mg TAB PO PRN (17:50)
[2021-03-11] MEDS: Morphine ER 15 mg TAB ** extended release PO SCH (17:57)
[2021-03-11] MEDS ORDERED: Lidocaine 2% JELLY 5 ML TUBE LIDO2GEL7 TOPICAL PRN (18:02)
[2021-03-11] MEDS: Magnesium Hydroxide LIQ 30 ML UDC PO SCH ×2 (19:22→19:36)
[2021-03-12] MEDS: Venlafaxine XR 75 mg PO SCH (08:19)
[2021-03-12] MEDS: Aspirin EC 81 mg TAB.EC (enteric coated) PO SCH (08:19)
[2021-03-12] MEDS: Morphine ER 15 mg TAB ** extended release PO SCH ×2 (08:20→21:53)
[2021-03-12] MEDS: Enoxaparin 40 MG/0.4 ML SYR SUBCUT SCH (08:21)
[2021-03-12] MEDS: Hydrocortisone ENEMA 100 MG BTL PR SCH (08:22)
[2021-03-12] MEDS: Magnesium Hydroxide LIQ 30 ML UDC PO SCH ×3 (08:23→21:45)
[2021-03-12] MEDS: PTO:Mirabegron 25 mg ER TAB (NF) PO SCH (18:04)
[2021-03-13] MEDS: Aspirin EC 81 mg TAB.EC (enteric coated) PO SCH (09:44)
[2021-03-13] MEDS: Enoxaparin 40 MG/0.4 ML SYR SUBCUT SCH (09:44)
[2021-03-13] MEDS: Magnesium Hydroxide LIQ 30 ML UDC PO SCH ×3 (09:44→20:25)
[2021-03-13] MEDS: Morphine ER 15 mg TAB ** extended release PO SCH ×2 (09:45→20:27)
[2021-03-13] MEDS: Venlafaxine XR 75 mg PO SCH (09:46)
[2021-03-13] MEDS: Hydrocortisone ENEMA 100 MG BTL PR SCH (09:46)
[2021-03-13] MEDS: PTO:Mirabegron 25 mg ER TAB (NF) PO SCH (18:12)
[2021-03-14] MEDS: Venlafaxine XR 75 mg PO SCH (09:03)
[2021-03-14] MEDS: Magnesium Hydroxide LIQ 30 ML UDC PO SCH ×3 (09:03→20:06)
[2021-03-14] MEDS: Enoxaparin 40 MG/0.4 ML SYR SUBCUT SCH (09:03)
[2021-03-14] MEDS: Morphine ER 15 mg TAB ** extended release PO SCH ×2 (09:04→20:04)
[2021-03-14] MEDS: Aspirin EC 81 mg TAB.EC (enteric coated) PO SCH (09:04)
[2021-03-14] MEDS: Hydrocortisone ENEMA 100 MG BTL PR SCH (09:19)
[2021-03-14] MEDS: Lidocaine 2% JELLY 6 ML TOPICAL PRN (10:28)
[2021-03-14] MEDS: PTO:Mirabegron 25 mg ER TAB (NF) PO SCH (19:07)
[2021-03-15] MEDS: Venlafaxine XR 75 mg PO SCH (08:30)
[2021-03-15] MEDS: Aspirin EC 81 mg TAB.EC (enteric coated) PO SCH (08:30)
[2021-03-15] MEDS: Morphine ER 15 mg TAB ** extended release PO SCH ×2 (08:31→21:04)
[2021-03-15] MEDS: Enoxaparin 40 MG/0.4 ML SYR SUBCUT SCH (08:31)
[2021-03-15] MEDS: Magnesium Hydroxide LIQ 30 ML UDC PO SCH ×3 (08:32→21:03)
[2021-03-15] MEDS: Hydrocortisone ENEMA 100 MG BTL PR SCH (08:33)
[2021-03-15] MEDS: Lidocaine 2% JELLY 6 ML TOPICAL PRN (08:43)
[2021-03-15] MEDS: PTO:Mirabegron 25 mg ER TAB (NF) PO SCH (16:23)
[2021-03-16] MEDS: Magnesium Hydroxide LIQ 30 ML UDC PO SCH ×3 (09:28→21:10)
[2021-03-16] MEDS: Hydrocortisone ENEMA 100 MG BTL PR SCH (09:29)
[2021-03-16] MEDS: Enoxaparin 40 MG/0.4 ML SYR SUBCUT SCH (09:29)
[2021-03-16] MEDS: Aspirin EC 81 mg TAB.EC (enteric coated) PO SCH (09:30)
[2021-03-16] MEDS: Venlafaxine XR 75 mg PO SCH (09:30)
[2021-03-16] MEDS: Morphine ER 15 mg TAB ** extended release PO SCH ×2 (09:31→21:09)
[2021-03-16] MEDS: Lidocaine 2% JELLY 6 ML TOPICAL PRN (14:28)
[2021-03-16] MEDS: PTO:Mirabegron 25 mg ER TAB (NF) PO SCH (17:14)
[2021-03-17] MEDS: Lidocaine 2% JELLY 6 ML TOPICAL PRN ×2 (00:35→18:18)
[2021-03-17] MEDS: Aspirin EC 81 mg TAB.EC (enteric coated) PO SCH (08:26)
[2021-03-17] MEDS: Enoxaparin 40 MG/0.4 ML SYR SUBCUT SCH (08:26)
[2021-03-17] MEDS: Morphine ER 15 mg TAB ** extended release PO SCH ×2 (08:27→20:05)
[2021-03-17] MEDS: Venlafaxine XR 75 mg PO SCH (08:28)
[2021-03-17] MEDS: Magnesium Hydroxide LIQ 30 ML UDC PO SCH ×3 (08:32→20:03)
[2021-03-17] MEDS: Hydrocortisone ENEMA 100 MG BTL PR SCH (10:00)
[2021-03-17 10:01] LABS: ABS Basophils 0.1 10^3/ul (0-0.2); ABS Eosinophils 0.5 10^3/ul (0-0.6); ABS Lymphocytes 2.9 10^3/ul (1.0-4.8); ABS Monocytes 1.3 10^3/ul (0-0.8); ABS Neutrophils 7.7 10^3/ul (1.5-7.7); Eosinophil % 4.4 %; Hematocrit 31 % (42-52); Hemoglobin 10.3 g/dL (14.0-18.0); Mean Corpuscular HGB Conc 33 g/dL (31-36); Mean Corpuscular Hemoglobin 33 pg (27-31); Mean Corpuscular Volume 98 fL (80-94); Mean Platelet Volume 8.6 fL (7.4-10.4); Platelet Count 331 10^3/uL (150-450); Red Blood Count 3.16 10^6 /uL (4.18-5.48); Red Cell Distribution Width 15 % (10-15); White Blood Count 12.5 10^3/uL (3.5-10.8)
[2021-03-17 10:17] LABS: Albumin 3.5 g/dL (3.2-5.2); Albumin/Globulin Ratio 0.9 (1-3); Calcium 9.5 mg/dL (8.6-10.3); EGFR African American 119.4 (>60); EGFR Non-African American 98.7 (>60); Potassium 4.2 mmol/L (3.5-5.0); Total Bilirubin 0.3 mg/dL (0.2-1.0); Total Protein 7.5 g/dL (6.4-8.9)
[2021-03-17 11:41] LABS: % Iron Saturation 15 % (15-55); Iron 49 ug/dL (50-212); Total Iron Binding Capacity 336 mcg/dL (250-450); Transferrin 240 mg/dL (203-362); Unsaturated Iron Binding < 321 ug/dL
[2021-03-17 12:12] LABS: Ferritin 46.3 ng/mL (24-336)
[2021-03-17 12:15] LABS: Vitamin B12 144 pg/mL (180-914)
[2021-03-17 12:19] LABS: Vitamin D Total 25(OH) 17.1 ng/mL (20-50)
[2021-03-17] MEDS ORDERED: NS 0.9% IVPB ONE (15:00)
[2021-03-17] MEDS ORDERED: FLUOROURACIL IVPB ONE (15:00)
[2021-03-17] MEDS: PTO:Mirabegron 25 mg ER TAB (NF) PO SCH (18:28)
[2021-03-18] MEDS: Magnesium Hydroxide LIQ 30 ML UDC PO SCH ×4 (10:06→19:45)
[2021-03-18] MEDS: Venlafaxine XR 75 mg PO SCH (10:07)
[2021-03-18] MEDS: Aspirin EC 81 mg TAB.EC (enteric coated) PO SCH (10:07)
[2021-03-18] MEDS: Morphine ER 15 mg TAB ** extended release PO SCH ×2 (10:08→20:51)
[2021-03-18] MEDS: Enoxaparin 40 MG/0.4 ML SYR SUBCUT SCH (10:09)
[2021-03-18] MEDS: Hydrocortisone ENEMA 100 MG BTL PR SCH ×2 (10:12→10:17)
[2021-03-18] MEDS: Lidocaine 2% JELLY 6 ML TOPICAL PRN (11:51)
[2021-03-18] MEDS: PTO:Mirabegron 25 mg ER TAB (NF) PO SCH (17:30)
[2021-03-19] MEDS: Enoxaparin 40 MG/0.4 ML SYR SUBCUT SCH (10:19)
[2021-03-19] MEDS: Venlafaxine XR 75 mg PO SCH (10:22)
[2021-03-19] MEDS: Morphine ER 15 mg TAB ** extended release PO SCH ×3 (10:23→19:47)
[2021-03-19] MEDS: Aspirin EC 81 mg TAB.EC (enteric coated) PO SCH (10:24)
[2021-03-19] MEDS: Magnesium Hydroxide LIQ 30 ML UDC PO SCH ×3 (10:24→19:47)
[2021-03-19] MEDS: Hydrocortisone ENEMA 100 MG BTL PR SCH (10:27)
[2021-03-19] MEDS: PTO:Mirabegron 25 mg ER TAB (NF) PO SCH (17:47)
[2021-03-20] MEDS: Magnesium Hydroxide LIQ 30 ML UDC PO SCH ×4 (10:22→21:26)
[2021-03-20] MEDS: Hydrocortisone ENEMA 100 MG BTL PR SCH (10:22)
[2021-03-20] MEDS: Lidocaine 2% JELLY 6 ML TOPICAL PRN (10:22)
[2021-03-20] MEDS: Venlafaxine XR 75 mg PO SCH (10:23)
[2021-03-20] MEDS: Aspirin EC 81 mg TAB.EC (enteric coated) PO SCH (10:24)
[2021-03-20] MEDS: Morphine ER 15 mg TAB ** extended release PO SCH ×3 (10:24→21:24)
[2021-03-20] MEDS: Enoxaparin 40 MG/0.4 ML SYR SUBCUT SCH (10:25)
[2021-03-20] MEDS: Cyanocobalamin INJ 1,000 MCG/ML VIAL 1 ML VIAL IM SCH (10:26)
[2021-03-20] MEDS: PTO:Mirabegron 25 mg ER TAB (NF) PO SCH (20:05)
[2021-03-21] MEDS: Enoxaparin 40 MG/0.4 ML SYR SUBCUT SCH (09:20)
[2021-03-21] MEDS: Magnesium Hydroxide LIQ 30 ML UDC PO SCH ×3 (09:20→22:25)
[2021-03-21] MEDS: Venlafaxine XR 75 mg PO SCH (09:20)
[2021-03-21] MEDS: Morphine ER 15 mg TAB ** extended release PO SCH ×3 (09:21→22:21)
[2021-03-21] MEDS: Aspirin EC 81 mg TAB.EC (enteric coated) PO SCH (09:21)
[2021-03-21] MEDS: Lidocaine 2% JELLY 6 ML TOPICAL PRN (11:29)
[2021-03-21] MEDS: Cyanocobalamin INJ 1,000 MCG/ML VIAL 1 ML VIAL IM SCH (11:29)
[2021-03-21] MEDS: Hydrocortisone ENEMA 100 MG BTL PR SCH ×2 (11:30→11:51)
[2021-03-21] MEDS: PTO:Mirabegron 25 mg ER TAB (NF) PO SCH (16:02)
[2021-03-22] MEDS: Morphine ER 15 mg TAB ** extended release PO SCH ×3 (10:32→20:19)
[2021-03-22] MEDS: Aspirin EC 81 mg TAB.EC (enteric coated) PO SCH (10:33)
[2021-03-22] MEDS: Venlafaxine XR 75 mg PO SCH (10:33)
[2021-03-22] MEDS: Cyanocobalamin INJ 1,000 MCG/ML VIAL 1 ML VIAL IM SCH (10:33)
[2021-03-22] MEDS: Enoxaparin 40 MG/0.4 ML SYR SUBCUT SCH (10:35)
[2021-03-22] MEDS: Magnesium Hydroxide LIQ 30 ML UDC PO SCH ×4 (10:36→20:35)
[2021-03-22] MEDS: Hydrocortisone ENEMA 100 MG BTL PR SCH (13:25)
[2021-03-22] MEDS: PTO:Mirabegron 25 mg ER TAB (NF) PO SCH (17:44)
[2021-03-23] MEDS: Morphine ER 15 mg TAB ** extended release PO SCH ×3 (09:17→19:27)
[2021-03-23] MEDS: Venlafaxine XR 75 mg PO SCH (09:19)
[2021-03-23] MEDS: Aspirin EC 81 mg TAB.EC (enteric coated) PO SCH (09:19)
[2021-03-23] MEDS: Enoxaparin 40 MG/0.4 ML SYR SUBCUT SCH (09:26)
[2021-03-23] MEDS: Magnesium Hydroxide LIQ 30 ML UDC PO SCH ×3 (10:05→19:40)
[2021-03-23] MEDS: Hydrocortisone ENEMA 100 MG BTL PR SCH (10:08)
[2021-03-23] MEDS: Cyanocobalamin INJ 1,000 MCG/ML VIAL 1 ML VIAL IM SCH (10:19)
[2021-03-23] MEDS: PTO:Mirabegron 25 mg ER TAB (NF) PO SCH (17:15)
[2021-03-24] MEDS: Aspirin EC 81 mg TAB.EC (enteric coated) PO SCH (08:53)
[2021-03-24] MEDS: Enoxaparin 40 MG/0.4 ML SYR SUBCUT SCH (08:53)
[2021-03-24] MEDS: Morphine ER 15 mg TAB ** extended release PO SCH ×3 (08:53→20:49)
[2021-03-24] MEDS: Venlafaxine XR 75 mg PO SCH (08:54)
[2021-03-24] MEDS: Hydrocortisone ENEMA 100 MG BTL PR SCH (08:55)
[2021-03-24] MEDS: Magnesium Hydroxide LIQ 30 ML UDC PO SCH ×3 (08:55→20:50)
[2021-03-24] MEDS: Lidocaine 2% JELLY 6 ML TOPICAL PRN (09:02)
[2021-03-24] MEDS ORDERED: Senna TAB 8.6 mg TAB PO PRN (09:31)
[2021-03-24] MEDS ORDERED: Magnesium Hydroxide LIQ 30 ML UDC PO PRN (09:31)
[2021-03-24] MEDS: Cyanocobalamin INJ 1,000 MCG/ML VIAL 1 ML VIAL IM SCH (09:31)
[2021-03-24] MEDS: PTO:Mirabegron 25 mg ER TAB (NF) PO SCH (16:42)
[2021-03-25] MEDS: Aspirin EC 81 mg TAB.EC (enteric coated) PO SCH (10:03)
[2021-03-25] MEDS: Morphine ER 15 mg TAB ** extended release PO SCH ×3 (10:04→21:00)
[2021-03-25] MEDS: Magnesium Hydroxide LIQ 30 ML UDC PO SCH ×3 (10:08→19:49)
[2021-03-25] MEDS: Hydrocortisone ENEMA 100 MG BTL PR SCH (10:10)
[2021-03-25] MEDS: Enoxaparin 40 MG/0.4 ML SYR SUBCUT SCH (10:18)
[2021-03-25] MEDS: Venlafaxine XR 75 mg PO SCH (10:26)
[2021-03-25 16:40] LABS: ABS Eosinophils 0.1 10^3/ul (0-0.6); ABS Monocytes 0.2 10^3/ul (0-0.8); ABS Neutrophils 1.4 10^3/ul (1.5-7.7); Eosinophil % 2.1 %; Hematocrit 27 % (42-52); Lymphocyte % 38.3 %; Mean Corpuscular HGB Conc 33 g/dL (31-36); Mean Corpuscular Hemoglobin 33 pg (27-31); Mean Corpuscular Volume 98 fL (80-94); Mean Platelet Volume 8.4 fL (7.4-10.4); Nucleated Red Blood Cells % 0.2; Platelet Count 273 10^3/uL (150-450); Red Blood Count 2.77 10^6 /uL (4.18-5.48); Red Cell Distribution Width 15 % (10-15); White Blood Count 2.7 10^3/uL (3.5-10.8)
[2021-03-25 17:30] LABS: Total Iron Binding Capacity 307 mcg/dL (250-450); Transferrin 219 mg/dL (203-362)
[2021-03-25 17:31] LABS: % Iron Saturation 26 % (15-55); Iron 79 ug/dL (50-212); Unsaturated Iron Binding < 292 ug/dL
[2021-03-25 17:32] LABS: Ferritin 96.7 ng/mL (24-336)
[2021-03-25] MEDS: PTO:Mirabegron 25 mg ER TAB (NF) PO SCH (18:38)
[2021-03-25 22:07] LABS: ALT 11 U/L (7-52); AST 20 U/L (13-39); Albumin 3.4 g/dL (3.2-5.2); Albumin/Globulin Ratio 0.9 (1-3); Alkaline Phosphatase 73 U/L (35-149); Anion Gap 14 mmol/L (2-11); Blood Urea Nitrogen 13 mg/dL (6-24); CO2 Carbon Dioxide 18 mmol/L (22-32); Calcium 9.3 mg/dL (8.6-10.3); Chloride 103 mmol/L (101-111); EGFR African American 124.9 (>60); EGFR Non-African American 103.3 (>60); Globulin 3.7 g/dL (2-4); Glucose 105 mg/dL (70-100); Potassium 4.7 mmol/L (3.5-5.0); Sodium 135 mmol/L (135-145); Total Protein 7.1 g/dL (6.4-8.9)
[2021-03-26] MEDS: Venlafaxine XR 75 mg PO SCH (09:27)
[2021-03-26] MEDS: Magnesium Hydroxide LIQ 30 ML UDC PO SCH ×4 (09:27→20:08)
[2021-03-26] MEDS: Morphine ER 15 mg TAB ** extended release PO SCH (09:28)
[2021-03-26] MEDS: Enoxaparin 40 MG/0.4 ML SYR SUBCUT SCH (09:29)
[2021-03-26] MEDS: Aspirin EC 81 mg TAB.EC (enteric coated) PO SCH (09:29)
[2021-03-26] MEDS: Hydrocortisone ENEMA 100 MG BTL PR SCH (09:32)
[2021-03-26] MEDS: PTO:Mirabegron 25 mg ER TAB (NF) PO SCH (16:46)
[2021-03-26] MEDS ORDERED: Morphine ER 15 mg TAB ** extended release PO ONE (20:35)
[2021-03-26] MEDS ORDERED: Morphine ER 15 mg TAB ** extended release PO SCH (21:00)
[2021-03-27] MEDS ORDERED: Morphine ER 15 mg TAB ** extended release PO ONE (09:00)
[2021-03-27] MEDS: Magnesium Hydroxide LIQ 30 ML UDC PO SCH ×3 (09:36→20:47)
[2021-03-27] MEDS: Venlafaxine XR 75 mg PO SCH (09:45)
[2021-03-27] MEDS: Aspirin EC 81 mg TAB.EC (enteric coated) PO SCH (09:46)
[2021-03-27] MEDS: Enoxaparin 40 MG/0.4 ML SYR SUBCUT SCH (09:48)
[2021-03-27] MEDS: Hydrocortisone ENEMA 100 MG BTL PR SCH (10:05)
[2021-03-27] MEDS: Lidocaine 2% JELLY 6 ML TOPICAL PRN (12:12)
[2021-03-27] MEDS: PTO:Mirabegron 25 mg ER TAB (NF) PO SCH (16:40)
[2021-03-28] MEDS: Aspirin EC 81 mg TAB.EC (enteric coated) PO SCH (09:25)
[2021-03-28] MEDS: Magnesium Hydroxide LIQ 30 ML UDC PO SCH ×3 (09:27→21:14)
[2021-03-28] MEDS: Venlafaxine XR 75 mg PO SCH (09:29)
[2021-03-28] MEDS: Enoxaparin 40 MG/0.4 ML SYR SUBCUT SCH (09:30)
[2021-03-28] MEDS: Hydrocortisone ENEMA 100 MG BTL PR SCH (09:50)
[2021-03-28] MEDS: PTO:Mirabegron 25 mg ER TAB (NF) PO SCH (16:58)
[2021-03-29] MEDS: Enoxaparin 40 MG/0.4 ML SYR SUBCUT SCH ×2 (09:15→09:24)
[2021-03-29] MEDS: Magnesium Hydroxide LIQ 30 ML UDC PO SCH ×3 (09:15→20:25)
[2021-03-29] MEDS: Venlafaxine XR 75 mg PO SCH (09:18)
[2021-03-29] MEDS: Aspirin EC 81 mg TAB.EC (enteric coated) PO SCH (09:18)
[2021-03-29] MEDS: Hydrocortisone ENEMA 100 MG BTL PR SCH (11:08)
[2021-03-29] MEDS: PTO:Mirabegron 25 mg ER TAB (NF) PO SCH (17:40)
[2021-03-30] MEDS: Venlafaxine XR 75 mg PO SCH (09:29)
[2021-03-30] MEDS: Aspirin EC 81 mg TAB.EC (enteric coated) PO SCH (09:29)
[2021-03-30] MEDS: Enoxaparin 40 MG/0.4 ML SYR SUBCUT SCH (09:29)
[2021-03-30] MEDS: Magnesium Hydroxide LIQ 30 ML UDC PO SCH ×3 (09:30→21:20)
[2021-03-30] MEDS: Hydrocortisone ENEMA 100 MG BTL PR SCH (09:30)
[2021-03-30] MEDS: Albuterol HFA INHALER 8 gm MDI INH PRN (10:56)
[2021-03-30] MEDS: PTO:Mirabegron 25 mg ER TAB (NF) PO SCH (19:31)
[2021-03-31] MEDS: Enoxaparin 40 MG/0.4 ML SYR SUBCUT SCH (09:37)
[2021-03-31] MEDS: Venlafaxine XR 75 mg PO SCH (09:40)
[2021-03-31] MEDS: Aspirin EC 81 mg TAB.EC (enteric coated) PO SCH (09:40)
[2021-03-31] MEDS: Magnesium Hydroxide LIQ 30 ML UDC PO SCH ×3 (09:41→23:03)
[2021-03-31] MEDS: Hydrocortisone ENEMA 100 MG BTL PR SCH (09:41)
[2021-03-31] MEDS: PTO:Mirabegron 25 mg ER TAB (NF) PO SCH (17:38)
[2021-04-01] MEDS: Venlafaxine XR 75 mg PO SCH (08:58)
[2021-04-01] MEDS: Aspirin EC 81 mg TAB.EC (enteric coated) PO SCH (09:03)
[2021-04-01] MEDS: Enoxaparin 40 MG/0.4 ML SYR SUBCUT SCH (09:07)
[2021-04-01] MEDS: Magnesium Hydroxide LIQ 30 ML UDC PO SCH ×3 (09:08→19:51)
[2021-04-01] MEDS: Hydrocortisone ENEMA 100 MG BTL PR SCH (09:32)
[2021-04-01] MEDS: Lidocaine 2% JELLY 6 ML TOPICAL PRN (09:32)
[2021-04-01] MEDS: PTO:Mirabegron 25 mg ER TAB (NF) PO SCH (17:46)
[2021-04-02] MEDS ORDERED: Flu vaccine *QUAD* 2021-22* 0.5 ML SYRINGE IM ONE (09:00)
[2021-04-02] MEDS ORDERED: Pneumococcal Vac 23-Polyvalent IM ONE (09:00)
[2021-04-02] MEDS: Magnesium Hydroxide LIQ 30 ML UDC PO SCH ×3 (10:23→21:34)
[2021-04-02] MEDS: Aspirin EC 81 mg TAB.EC (enteric coated) PO SCH (10:25)
[2021-04-02] MEDS: Venlafaxine XR 75 mg PO SCH (10:26)
[2021-04-02] MEDS: Enoxaparin 40 MG/0.4 ML SYR SUBCUT SCH (10:27)
[2021-04-02] MEDS: Hydrocortisone ENEMA 100 MG BTL PR SCH (15:46)
[2021-04-02] MEDS: PTO:Mirabegron 25 mg ER TAB (NF) PO SCH (17:01)
[2021-04-03] MEDS: Venlafaxine XR 75 mg PO SCH (09:27)
[2021-04-03] MEDS: Aspirin EC 81 mg TAB.EC (enteric coated) PO SCH (09:27)
[2021-04-03] MEDS: Enoxaparin 40 MG/0.4 ML SYR SUBCUT SCH (09:29)
[2021-04-03] MEDS: Magnesium Hydroxide LIQ 30 ML UDC PO SCH ×3 (09:31→21:01)
[2021-04-03] MEDS: Hydrocortisone ENEMA 100 MG BTL PR SCH (09:31)
[2021-04-03] MEDS: PTO:Mirabegron 25 mg ER TAB (NF) PO SCH (19:56)
[2021-04-04] MEDS: Enoxaparin 40 MG/0.4 ML SYR SUBCUT SCH (09:36)
[2021-04-04] MEDS: Venlafaxine XR 75 mg PO SCH (09:39)
[2021-04-04] MEDS: Aspirin EC 81 mg TAB.EC (enteric coated) PO SCH (09:40)
[2021-04-04] MEDS: Magnesium Hydroxide LIQ 30 ML UDC PO SCH ×3 (09:42→21:19)
[2021-04-04] MEDS: Hydrocortisone ENEMA 100 MG BTL PR SCH (09:57)
[2021-04-04] MEDS: PTO:Mirabegron 25 mg ER TAB (NF) PO SCH (19:53)
[2021-04-05] MEDS: Venlafaxine XR 75 mg PO SCH (08:40)
[2021-04-05] MEDS: Enoxaparin 40 MG/0.4 ML SYR SUBCUT SCH ×2 (08:40→08:47)
[2021-04-05] MEDS: Aspirin EC 81 mg TAB.EC (enteric coated) PO SCH (08:41)
[2021-04-05] MEDS: Magnesium Hydroxide LIQ 30 ML UDC PO SCH ×3 (08:43→19:29)
[2021-04-05] MEDS: Lidocaine 2% JELLY 6 ML TOPICAL PRN (08:58)
[2021-04-05] MEDS: Hydrocortisone ENEMA 100 MG BTL PR SCH (08:59)
[2021-04-05] MEDS: PTO:Mirabegron 25 mg ER TAB (NF) PO SCH (17:44)
[2021-04-05] MEDS: Albuterol HFA INHALER 8 gm MDI INH PRN (22:23)
[2021-04-06] MEDS: Aspirin EC 81 mg TAB.EC (enteric coated) PO SCH (08:20)
[2021-04-06] MEDS: Venlafaxine XR 75 mg PO SCH (08:21)
[2021-04-06] MEDS: Magnesium Hydroxide LIQ 30 ML UDC PO SCH ×3 (08:25→19:58)
[2021-04-06] MEDS: Enoxaparin 40 MG/0.4 ML SYR SUBCUT SCH (08:29)
[2021-04-06] MEDS: Hydrocortisone ENEMA 100 MG BTL PR SCH (10:54)
[2021-04-06] MEDS: Lidocaine 2% JELLY 6 ML TOPICAL PRN (10:55)
[2021-04-06] MEDS: PTO:Mirabegron 25 mg ER TAB (NF) PO SCH (16:41)
[2021-04-07] MEDS: Hydrocortisone ENEMA 100 MG BTL PR SCH (09:27)
[2021-04-07] MEDS: Venlafaxine XR 75 mg PO SCH (09:28)
[2021-04-07] MEDS: Aspirin EC 81 mg TAB.EC (enteric coated) PO SCH (09:28)
[2021-04-07] MEDS: Magnesium Hydroxide LIQ 30 ML UDC PO SCH ×3 (09:29→19:47)
[2021-04-07] MEDS: Enoxaparin 40 MG/0.4 ML SYR SUBCUT SCH (09:29)
[2021-04-07] MEDS: PTO:Mirabegron 25 mg ER TAB (NF) PO SCH (17:57)
[2021-04-08] MEDS: Aspirin EC 81 mg TAB.EC (enteric coated) PO SCH (08:32)
[2021-04-08] MEDS: Venlafaxine XR 75 mg PO SCH (08:33)
[2021-04-08] MEDS: Magnesium Hydroxide LIQ 30 ML UDC PO SCH ×3 (08:33→19:56)
[2021-04-08] MEDS: Enoxaparin 40 MG/0.4 ML SYR SUBCUT SCH (08:34)
[2021-04-08] MEDS: Hydrocortisone ENEMA 100 MG BTL PR SCH (08:37)
[2021-04-08] MEDS: PTO:Mirabegron 25 mg ER TAB (NF) PO SCH (17:02)
[2021-04-09] MEDS: Aspirin EC 81 mg TAB.EC (enteric coated) PO SCH (09:48)
[2021-04-09] MEDS: Venlafaxine XR 75 mg PO SCH (09:48)
[2021-04-09] MEDS: Magnesium Hydroxide LIQ 30 ML UDC PO SCH ×3 (09:49→21:03)
[2021-04-09] MEDS: Enoxaparin 40 MG/0.4 ML SYR SUBCUT SCH (09:49)
[2021-04-09] MEDS: Hydrocortisone ENEMA 100 MG BTL PR SCH (09:49)
[2021-04-09] MEDS: PTO:Mirabegron 25 mg ER TAB (NF) PO SCH (18:10)
[2021-04-10] MEDS: Aspirin EC 81 mg TAB.EC (enteric coated) PO SCH (08:41)
[2021-04-10] MEDS: Venlafaxine XR 75 mg PO SCH (08:43)
[2021-04-10] MEDS: Magnesium Hydroxide LIQ 30 ML UDC PO SCH ×4 (08:48→21:21)
[2021-04-10] MEDS: Enoxaparin 40 MG/0.4 ML SYR SUBCUT SCH (09:26)
[2021-04-10] MEDS: Hydrocortisone ENEMA 100 MG BTL PR SCH (09:53)
[2021-04-10] MEDS: Lidocaine 2% JELLY 6 ML TOPICAL PRN (11:00)
[2021-04-10] MEDS: PTO:Mirabegron 25 mg ER TAB (NF) PO SCH (18:27)
[2021-04-11] MEDS: Hydrocortisone ENEMA 100 MG BTL PR SCH (08:42)
[2021-04-11] MEDS: Magnesium Hydroxide LIQ 30 ML UDC PO SCH ×3 (08:42→21:18)
[2021-04-11] MEDS: Enoxaparin 40 MG/0.4 ML SYR SUBCUT SCH (08:42)
[2021-04-11] MEDS: Aspirin EC 81 mg TAB.EC (enteric coated) PO SCH (08:47)
[2021-04-11] MEDS: Venlafaxine XR 75 mg PO SCH (08:50)
[2021-04-11 15:15] LABS: Hematocrit 24 % (42-52); Hemoglobin 8.2 g/dL (14.0-18.0); Mean Corpuscular HGB Conc 34 g/dL (31-36); Mean Corpuscular Hemoglobin 33 pg (27-31); Mean Corpuscular Volume 98 fL (80-94); Mean Platelet Volume 8.2 fL (7.4-10.4); Platelet Count 284 10^3/uL (150-450); Red Blood Count 2.48 10^6 /uL (4.18-5.48); Red Cell Distribution Width 17 % (10-15); White Blood Count 4.3 10^3/uL (3.5-10.8)
[2021-04-11 15:43] LABS: Albumin 3.8 g/dL (3.2-5.2); Calcium 9.5 mg/dL (8.6-10.3); Potassium 4.4 mmol/L (3.5-5.0); Total Bilirubin 0.3 mg/dL (0.2-1.0); Total Protein 7.8 g/dL (6.4-8.9)
[2021-04-11 16:12] LABS: Vitamin D Total 25(OH) 24.6 ng/mL (20-50)
[2021-04-11] MEDS: PTO:Mirabegron 25 mg ER TAB (NF) PO SCH (17:33)
[2021-04-11 18:57] LABS: ABS Eosinophils 0.3 10^3/ul (0-0.6); ABS Lymphocytes 0.6 10^3/ul (1.0-4.8); ABS Monocytes 0.5 10^3/ul (0-0.8); ABS Neutrophils 2.9 10^3/ul (1.5-7.7); Eosinophil % 7.4 %; Lymphocyte % 13.2 %; Nucleated Red Blood Cells % 0.3
[2021-04-12] MEDS: Enoxaparin 40 MG/0.4 ML SYR SUBCUT SCH (08:18)
[2021-04-12] MEDS: Venlafaxine XR 75 mg PO SCH (08:19)
[2021-04-12] MEDS: Aspirin EC 81 mg TAB.EC (enteric coated) PO SCH (08:25)
[2021-04-12] MEDS: Hydrocortisone ENEMA 100 MG BTL PR SCH (08:33)
[2021-04-12] MEDS: Magnesium Hydroxide LIQ 30 ML UDC PO SCH (08:33)
[2021-04-12] MEDS: Lidocaine 2% JELLY 6 ML TOPICAL PRN (15:44)
[2021-04-12] MEDS: PTO:Mirabegron 25 mg ER TAB (NF) PO SCH (17:08)
[2021-04-13] MEDS: Aspirin EC 81 mg TAB.EC (enteric coated) PO SCH (09:12)
[2021-04-13] MEDS: Venlafaxine XR 75 mg PO SCH (09:13)
[2021-04-13] MEDS: Hydrocortisone ENEMA 100 MG BTL PR SCH (09:15)
[2021-04-13] MEDS: PTO:Mirabegron 25 mg ER TAB (NF) PO SCH (18:06)
[2021-04-14] MEDS: Venlafaxine XR 75 mg PO SCH (08:33)
[2021-04-14] MEDS: Hydrocortisone ENEMA 100 MG BTL PR SCH (08:38)
[2021-04-14] MEDS: Aspirin EC 81 mg TAB.EC (enteric coated) PO SCH (08:39)
[2021-04-14] MEDS ORDERED: FLUOROURACIL IVPB ONE (15:00)
[2021-04-14] MEDS ORDERED: NS 0.9% IVPB ONE (15:00)
[2021-04-14] MEDS: PTO:Mirabegron 25 mg ER TAB (NF) PO SCH (18:39)
[2021-04-15] MEDS: Venlafaxine XR 75 mg PO SCH (08:55)
[2021-04-15] MEDS: Aspirin EC 81 mg TAB.EC (enteric coated) PO SCH (08:57)
[2021-04-15] MEDS: Lidocaine 2% JELLY 6 ML TOPICAL PRN (08:58)
[2021-04-15] MEDS: Hydrocortisone ENEMA 100 MG BTL PR SCH (08:58)
[2021-04-15] MEDS: PTO:Mirabegron 25 mg ER TAB (NF) PO SCH (20:16)
[2021-04-16] MEDS: Venlafaxine XR 75 mg PO SCH (04:18)
[2021-04-16] MEDS: Aspirin EC 81 mg TAB.EC (enteric coated) PO SCH (09:59)
[2021-04-16] MEDS: Hydrocortisone ENEMA 100 MG BTL PR SCH (10:01)
[2021-04-16] MEDS: Lidocaine 2% JELLY 6 ML TOPICAL PRN (10:01)
[2021-04-17] MEDS: PTO:Mirabegron 25 mg ER TAB (NF) PO SCH ×2 (01:12→17:58)
[2021-04-17] MEDS: Venlafaxine XR 75 mg PO SCH (05:31)
[2021-04-17] MEDS: Lidocaine 2% JELLY 6 ML TOPICAL PRN (07:43)
[2021-04-17] MEDS: Hydrocortisone ENEMA 100 MG BTL PR SCH (07:43)
[2021-04-17] MEDS: Aspirin EC 81 mg TAB.EC (enteric coated) PO SCH (07:45)
[2021-04-18] MEDS: Venlafaxine XR 75 mg PO SCH (06:00)
[2021-04-18] MEDS: Aspirin EC 81 mg TAB.EC (enteric coated) PO SCH (10:29)
[2021-04-18] MEDS: Hydrocortisone ENEMA 100 MG BTL PR SCH (10:30)
[2021-04-18] MEDS ORDERED: NS 0.9% 1000 ml BAG 1,000 ML IV ONE (16:00)
[2021-04-18 16:22] LABS: ABS Eosinophils 0.2 10^3/ul (0-0.6); ABS Lymphocytes 0.2 10^3/ul (1.0-4.8); ABS Monocytes 0.1 10^3/ul (0-0.8); ABS Neutrophils 1.9 10^3/ul (1.5-7.7); Eosinophil % 6.9 %; Hematocrit 23 % (42-52); Hemoglobin 7.6 g/dL (14.0-18.0); Lymphocyte % 10.1 %; Mean Corpuscular HGB Conc 33 g/dL (31-36); Mean Corpuscular Hemoglobin 32 pg (27-31); Mean Corpuscular Volume 97 fL (80-94); Mean Platelet Volume 7.5 fL (7.4-10.4); Nucleated Red Blood Cells % 0.1; Platelet Count 312 10^3/uL (150-450); Red Blood Count 2.38 10^6 /uL (4.18-5.48); Red Cell Distribution Width 18 % (10-15); White Blood Count 2.4 10^3/uL (3.5-10.8)
[2021-04-18 16:36] LABS: Albumin 3.4 g/dL (3.2-5.2); Albumin/Globulin Ratio 0.9 (1-3); Calcium 9.2 mg/dL (8.6-10.3); Globulin 3.8 g/dL (2-4); Magnesium 1.8 mg/dL (1.9-2.7); Potassium 3.8 mmol/L (3.5-5.0); Total Bilirubin 0.4 mg/dL (0.2-1.0); Total Protein 7.2 g/dL (6.4-8.9)
[2021-04-18] MEDS: PTO:Mirabegron 25 mg ER TAB (NF) PO SCH (18:01)
[2021-04-19] MEDS: Venlafaxine XR 75 mg PO SCH (06:21)
[2021-04-19] MEDS: Aspirin EC 81 mg TAB.EC (enteric coated) PO SCH (08:48)
[2021-04-19] MEDS: Hydrocortisone ENEMA 100 MG BTL PR SCH (10:23)
[2021-04-19] MEDS: PTO:Mirabegron 25 mg ER TAB (NF) PO SCH (19:14)
[2021-04-20] MEDS: Venlafaxine XR 75 mg PO SCH (05:25)
[2021-04-20] MEDS: Aspirin EC 81 mg TAB.EC (enteric coated) PO SCH (09:14)
[2021-04-20] MEDS: Hydrocortisone ENEMA 100 MG BTL PR SCH (09:14)
[2021-04-20 11:05] LABS: Urine Appearance Clear; Urine Bacteria Absent (Absent); Urine Bilirubin Negative (Negative); Urine Blood Negative (Negative); Urine Color Straw; Urine Glucose Negative (Negative); Urine Ketones Negative (Negative); Urine Nitrite Negative (Negative); Urine Protein Negative (Negative); Urine Red Blood Cell Trace(0-2/hpf) (Absent); Urine Specific Gravity 1.004 (1.002-1.030); Urine Urobilinogen Negative (Negative); Urine White Blood Cell Trace(0-5/hpf) (Absent)
[2021-04-20] MEDS: PTO:Mirabegron 25 mg ER TAB (NF) PO SCH (17:04)
[2021-04-21] MEDS: Venlafaxine XR 75 mg PO SCH (05:44)
[2021-04-21] MEDS: Aspirin EC 81 mg TAB.EC (enteric coated) PO SCH (08:36)
[2021-04-21] MEDS ORDERED: COVID-19 VACCINE, MRNA(MODERNA)/PF 100 MCG/0.5 ML IM ONE (10:00)
[2021-04-21] MEDS: Hydrocortisone ENEMA 100 MG BTL PR SCH ×2 (11:50→18:07)
[2021-04-21] MEDS: Nitrofurantoin (monohydrate/macrocrystals) 100 mg CAP PO SCH (14:14)
[2021-04-21] MEDS: PTO:Mirabegron 25 mg ER TAB (NF) PO SCH (18:03)
[2021-04-21] MEDS: Lidocaine 2% JELLY 6 ML TOPICAL PRN (18:06)
[2021-04-22] MEDS: Nitrofurantoin (monohydrate/macrocrystals) 100 mg CAP PO SCH ×3 (00:11→22:40)
[2021-04-22] MEDS: Venlafaxine XR 75 mg PO SCH (06:23)
[2021-04-22] MEDS: Aspirin EC 81 mg TAB.EC (enteric coated) PO SCH (10:38)
[2021-04-22] MEDS: Hydrocortisone ENEMA 100 MG BTL PR SCH (11:12)
[2021-04-22] MEDS: PTO:Mirabegron 25 mg ER TAB (NF) PO SCH (18:09)
[2021-04-22] MEDS: Silver Sulfadiazine 1% 85 GM TOPICAL SCH (22:44)
[2021-04-23] MEDS: Venlafaxine XR 75 mg PO SCH (05:37)
[2021-04-23] MEDS: Aspirin EC 81 mg TAB.EC (enteric coated) PO SCH (10:31)
[2021-04-23] MEDS: Hydrocortisone ENEMA 100 MG BTL PR SCH (10:37)
[2021-04-23] MEDS: Lidocaine 2% JELLY 6 ML TOPICAL PRN (10:37)
[2021-04-23] MEDS: Silver Sulfadiazine 1% 85 GM TOPICAL SCH ×2 (10:38→20:35)
[2021-04-23] MEDS: PTO:Mirabegron 25 mg ER TAB (NF) PO SCH (20:21)
[2021-04-24] MEDS: Venlafaxine XR 75 mg PO SCH (04:49)
[2021-04-24] MEDS: Aspirin EC 81 mg TAB.EC (enteric coated) PO SCH (09:02)
[2021-04-24] MEDS: Silver Sulfadiazine 1% 85 GM TOPICAL SCH ×2 (09:04→23:30)
[2021-04-24] MEDS: Hydrocortisone ENEMA 100 MG BTL PR SCH (10:40)
[2021-04-24] MEDS: PTO:Mirabegron 25 mg ER TAB (NF) PO SCH ×2 (17:31→17:33)
[2021-04-25] MEDS: PTO:Mirabegron 25 mg ER TAB (NF) PO SCH (00:35)
[2021-04-25] MEDS: Venlafaxine XR 75 mg PO SCH (05:15)
[2021-04-25] MEDS: Aspirin EC 81 mg TAB.EC (enteric coated) PO SCH (10:02)
[2021-04-25] MEDS: Silver Sulfadiazine 1% 85 GM TOPICAL SCH (10:03)
[2021-04-25] MEDS: Hydrocortisone ENEMA 100 MG BTL PR SCH (10:03)
[2021-04-26] MEDS: Venlafaxine XR 75 mg PO SCH (05:12)
[2021-04-26] MEDS: PTO:Mirabegron 25 mg ER TAB (NF) PO SCH ×2 (05:17→21:42)
[2021-04-26] MEDS: Silver Sulfadiazine 1% 85 GM TOPICAL SCH ×3 (05:18→22:04)
[2021-04-26] MEDS: Aspirin EC 81 mg TAB.EC (enteric coated) PO SCH (10:40)
[2021-04-26] MEDS: Hydrocortisone ENEMA 100 MG BTL PR SCH (12:12)
[2021-04-27] MEDS: Venlafaxine XR 75 mg PO SCH (06:30)
[2021-04-27] MEDS: Silver Sulfadiazine 1% 85 GM TOPICAL SCH ×2 (08:40→22:47)
[2021-04-27] MEDS: Aspirin EC 81 mg TAB.EC (enteric coated) PO SCH (08:40)
[2021-04-27] MEDS: Hydrocortisone ENEMA 100 MG BTL PR SCH (13:14)
[2021-04-27] MEDS: PTO:Mirabegron 25 mg ER TAB (NF) PO SCH (22:10)
[2021-04-28] MEDS: Venlafaxine XR 75 mg PO SCH (05:51)
[2021-04-28] MEDS: Hydrocortisone ENEMA 100 MG BTL PR SCH (09:00)
[2021-04-28] MEDS: Aspirin EC 81 mg TAB.EC (enteric coated) PO SCH (10:35)
[2021-04-28] MEDS: Silver Sulfadiazine 1% 85 GM TOPICAL SCH ×2 (10:41→20:16)
[2021-04-28] MEDS: PTO:Mirabegron 25 mg ER TAB (NF) PO SCH (20:14)
[2021-04-29] MEDS: Venlafaxine XR 75 mg PO SCH (07:00)
[2021-04-29] MEDS: Aspirin EC 81 mg TAB.EC (enteric coated) PO SCH (11:43)
[2021-04-29] MEDS: Hydrocortisone ENEMA 100 MG BTL PR SCH (13:17)
[2021-04-29] MEDS: Silver Sulfadiazine 1% 85 GM TOPICAL SCH ×2 (13:18→21:35)
[2021-04-29] MEDS: PTO:Mirabegron 25 mg ER TAB (NF) PO SCH (21:35)
[2021-04-30] MEDS: Venlafaxine XR 75 mg PO SCH (05:08)
[2021-04-30] MEDS: Aspirin EC 81 mg TAB.EC (enteric coated) PO SCH (09:25)
[2021-04-30] MEDS: Hydrocortisone ENEMA 100 MG BTL PR SCH (09:26)
[2021-04-30] MEDS: Silver Sulfadiazine 1% 85 GM TOPICAL SCH ×2 (09:28→20:35)
[2021-04-30] MEDS: PTO:Mirabegron 25 mg ER TAB (NF) PO SCH (20:35)
[2021-05-01] MEDS: Venlafaxine XR 75 mg PO SCH (06:29)
[2021-05-01] MEDS: Aspirin EC 81 mg TAB.EC (enteric coated) PO SCH (08:49)
[2021-05-01] MEDS: Hydrocortisone ENEMA 100 MG BTL PR SCH (08:53)
[2021-05-01] MEDS: Silver Sulfadiazine 1% 85 GM TOPICAL SCH ×2 (08:53→21:39)
[2021-05-01] MEDS: PTO:Mirabegron 25 mg ER TAB (NF) PO SCH (21:41)
[2021-05-02] MEDS: Venlafaxine XR 75 mg PO SCH (05:36)
[2021-05-02] MEDS: Hydrocortisone ENEMA 100 MG BTL PR SCH (10:30)
[2021-05-02] MEDS: Aspirin EC 81 mg TAB.EC (enteric coated) PO SCH (10:30)
[2021-05-02] MEDS: Silver Sulfadiazine 1% 85 GM TOPICAL SCH ×2 (10:35→21:35)
[2021-05-02] MEDS: PTO:Mirabegron 25 mg ER TAB (NF) PO SCH (21:38)
[2021-05-03] MEDS: Venlafaxine XR 75 mg PO SCH (05:55)
[2021-05-03] MEDS: Aspirin EC 81 mg TAB.EC (enteric coated) PO SCH (10:23)
[2021-05-03] MEDS: Hydrocortisone ENEMA 100 MG BTL PR SCH (11:34)
[2021-05-03] MEDS: Silver Sulfadiazine 1% 85 GM TOPICAL SCH ×2 (11:35→19:59)
[2021-05-03] MEDS: PTO:Mirabegron 25 mg ER TAB (NF) PO SCH (20:17)
[2021-05-04] MEDS: Venlafaxine XR 75 mg PO SCH (06:01)
[2021-05-04] MEDS: Silver Sulfadiazine 1% 85 GM TOPICAL SCH ×2 (11:46→21:47)
[2021-05-04] MEDS: Hydrocortisone ENEMA 100 MG BTL PR SCH (11:46)
[2021-05-04] MEDS: Aspirin EC 81 mg TAB.EC (enteric coated) PO SCH (11:46)
[2021-05-04] MEDS: PTO:Mirabegron 25 mg ER TAB (NF) PO SCH (21:45)
[2021-05-05] MEDS: Venlafaxine XR 75 mg PO SCH (05:51)
[2021-05-05 07:59] VITALS: BP 100/45
[2021-05-05] MEDS: Aspirin EC 81 mg TAB.EC (enteric coated) PO SCH (10:58)
[2021-05-05] MEDS: Hydrocortisone ENEMA 100 MG BTL PR SCH (10:58)
[2021-05-05] MEDS: Silver Sulfadiazine 1% 85 GM TOPICAL SCH (13:12)
== END 2021-05-05 16:40 | disposition home health service (06) | DRG 375 ==
LOC: MEDTELE 14:00
PROVIDERS: ADMIT Internal Medicine Hematology & Oncology; ATTEND Internal Medicine Hematology & Oncology

== ENCOUNTER 2022-01-19 20:45 | Inpatient (IN) ==
[2022-01-19 22:55] LABS: ABS Eosinophils 0.2 10^3/ul (0-0.6); ABS Monocytes 0.4 10^3/ul (0-0.8); ABS Neutrophils 4.3 10^3/ul (1.5-7.7); Hematocrit 39 % (42-52); Hemoglobin 12.5 g/dL (14.0-18.0); Lymphocyte % 17.5 %; Mean Corpuscular HGB Conc 32 g/dL (31-36); Mean Corpuscular Hemoglobin 31 pg (27-31); Mean Corpuscular Volume 97 fL (80-94); Mean Platelet Volume 7.4 fL (7.4-10.4); Nucleated Red Blood Cells % 0.1; Platelet Count 295 10^3/uL (150-450); Red Blood Count 4.07 10^6 /uL (4.18-5.48); Red Cell Distribution Width 17 % (10-15)
[2022-01-19 23:20] LABS: C Reactive Protein 5.42 mg/L (<8.01); Calcium 9.7 mg/dL (8.6-10.3); Magnesium 1.8 mg/dL (1.9-2.7); Potassium 3.9 mmol/L (3.5-5.0); eGFR CKD-EPI 96.7 (>60)
[2022-01-20] MEDS: Enoxaparin 40 MG/0.4 ML SYR SUBCUT SCH ×2 (03:16→20:49)
[2022-01-20] MEDS ORDERED: COVID-19 VACCINE, MRNA(MODERNA)/PF 100 MCG/0.5 ML IM ONE (11:20)
[2022-01-20] MEDS ORDERED: Venlafaxine XR 75 mg PO SCH ×2 (21:00→21:02)
[2022-01-21] MEDS ORDERED: Venlafaxine XR 75 mg PO SCH (08:00)
[2022-01-21] MEDS: Venlafaxine XR 75 mg PO SCH (11:40)
[2022-01-21] MEDS: Enoxaparin 40 MG/0.4 ML SYR SUBCUT SCH ×2 (22:05→22:11)
[2022-01-22] MEDS: Venlafaxine XR 75 mg PO SCH (08:39)
[2022-01-22] MEDS: Enoxaparin 40 MG/0.4 ML SYR SUBCUT SCH (20:50)
[2022-01-23] MEDS: Venlafaxine XR 75 mg PO SCH (09:20)
[2022-01-23] MEDS: Enoxaparin 40 MG/0.4 ML SYR SUBCUT SCH (21:11)
[2022-01-24] MEDS: Venlafaxine XR 75 mg PO SCH (09:02)
[2022-01-24] MEDS: Enoxaparin 40 MG/0.4 ML SYR SUBCUT SCH (21:16)
[2022-01-25] MEDS: Venlafaxine XR 75 mg PO SCH (09:38)
[2022-01-25] MEDS: Enoxaparin 40 MG/0.4 ML SYR SUBCUT SCH (20:29)
[2022-01-26] MEDS: Venlafaxine XR 75 mg PO SCH (09:19)
[2022-01-26] MEDS: Enoxaparin 40 MG/0.4 ML SYR SUBCUT SCH (19:57)
[2022-01-27] MEDS: Venlafaxine XR 75 mg PO SCH (08:10)
[2022-01-27] MEDS ORDERED: Albuterol HFA INHALER 8 gm MDI INH PRN (09:46)
[2022-01-27] MEDS: Aspirin EC 81 mg TAB.EC (enteric coated) PO SCH (10:06)
[2022-01-27] MEDS: oxyCODONE SR 15 mg TAB PO SCH ×2 (10:06→20:16)
[2022-01-27] MEDS: Enoxaparin 40 MG/0.4 ML SYR SUBCUT SCH (20:20)
[2022-01-28] MEDS: Aspirin EC 81 mg TAB.EC (enteric coated) PO SCH (09:20)
[2022-01-28] MEDS: oxyCODONE SR 15 mg TAB PO SCH ×2 (09:22→20:45)
[2022-01-28] MEDS: Venlafaxine XR 75 mg PO SCH (09:24)
[2022-01-28] MEDS: Enoxaparin 40 MG/0.4 ML SYR SUBCUT SCH (20:48)
[2022-01-29] MEDS: Venlafaxine XR 75 mg PO SCH (07:57)
[2022-01-29] MEDS: oxyCODONE SR 15 mg TAB PO SCH ×2 (07:58→21:33)
[2022-01-29] MEDS: Aspirin EC 81 mg TAB.EC (enteric coated) PO SCH (07:58)
[2022-01-29] MEDS: Enoxaparin 40 MG/0.4 ML SYR SUBCUT SCH (21:32)
[2022-01-30] MEDS: Venlafaxine XR 75 mg PO SCH (05:47)
[2022-01-30] MEDS: oxyCODONE SR 15 mg TAB PO SCH ×2 (08:00→21:59)
[2022-01-30] MEDS: Aspirin EC 81 mg TAB.EC (enteric coated) PO SCH (08:00)
[2022-01-30] MEDS: Enoxaparin 40 MG/0.4 ML SYR SUBCUT SCH (22:08)
[2022-01-31] MEDS: oxyCODONE SR 15 mg TAB PO SCH ×2 (07:41→20:47)
[2022-01-31] MEDS: Aspirin EC 81 mg TAB.EC (enteric coated) PO SCH ×2 (07:44→08:10)
[2022-01-31] MEDS: Venlafaxine XR 75 mg PO SCH (07:49)
[2022-01-31] MEDS: Enoxaparin 40 MG/0.4 ML SYR SUBCUT SCH (20:46)
[2022-02-01] MEDS: Venlafaxine XR 75 mg PO SCH (06:17)
[2022-02-01] MEDS: Aspirin EC 81 mg TAB.EC (enteric coated) PO SCH (07:50)
[2022-02-01] MEDS: oxyCODONE SR 15 mg TAB PO SCH ×2 (07:54→19:20)
[2022-02-01] MEDS: Enoxaparin 40 MG/0.4 ML SYR SUBCUT SCH (21:57)
[2022-02-02] MEDS: Venlafaxine XR 75 mg PO SCH (06:11)
[2022-02-02 08:14] VITALS: BP 147/70
[2022-02-02] MEDS: oxyCODONE SR 15 mg TAB PO SCH (08:21)
[2022-02-02] MEDS: Aspirin EC 81 mg TAB.EC (enteric coated) PO SCH ×2 (08:21→08:25)
[2022-02-02 09:16] LABS: Rapid COVID-19 Molecular Undetected (Undetected)
== END 2022-02-02 15:12 | disposition home or self-care (01) | DRG 948 ==
LOC: ED 20:45 → SUATTDRO 01-20 01:24 → EDHOLD 01-20 01:24 → MED 01-20 03:32
PROVIDERS: ADMIT Student in an Organized Health Care Education/Training Program; ATTEND Hospitalist

== ENCOUNTER 2022-07-23 18:05 | Observation (INO) ==
[2022-07-23 18:58] LABS: ABS Eosinophils 0.1 10^3/ul (0-0.6); ABS Lymphocytes 0.9 10^3/ul (1.0-4.8); ABS Monocytes 0.7 10^3/ul (0-0.8); ABS Neutrophils 5.5 10^3/ul (1.5-7.7); Eosinophil % 1.2 %; Hematocrit 43 % (42-52); Hemoglobin 13.8 g/dL (14.0-18.0); Lymphocyte % 12.7 %; Mean Corpuscular HGB Conc 33 g/dL (31-36); Mean Corpuscular Hemoglobin 31 pg (27-31); Mean Corpuscular Volume 95 fL (80-94); Mean Platelet Volume 7.5 fL (7.4-10.4); Nucleated Red Blood Cells % 0.1; Platelet Count 326 10^3/uL (150-450); Red Blood Count 4.48 10^6 /uL (4.18-5.48); Red Cell Distribution Width 17 % (10-15); White Blood Count 7.2 10^3/uL (3.5-10.8)
[2022-07-23 19:04] LABS: INR 1.24 (0.88-1.18)
[2022-07-23 19:31] LABS: Albumin 4.6 g/dL (3.2-5.2); Albumin/Globulin Ratio 1.1 (1-3); Calcium 10.3 mg/dL (8.6-10.3); Creatinine, Serum 0.95 mg/dL (0.67-1.17); Globulin 4.2 g/dL (2-4); Potassium 3.9 mmol/L (3.5-5.0); Total Bilirubin 0.6 mg/dL (0.2-1.0); Total Protein 8.8 g/dL (6.4-8.9); eGFR CKD-EPI 85.6 (>60)
[2022-07-23 20:36] LABS: High Sensitivity Troponin 1 Hr 9 pg/mL (<20)
[2022-07-23] MEDS ORDERED: Iohexol 350 (CONTRAST) 500 ML MDV IV ONE (20:53)
[2022-07-24] MEDS ORDERED: Labetalol IV 5 MG/ML 20 ml VIAL IV PUSH ONE ×2 (00:27→09:33)
[2022-07-24] MEDS ORDERED: nitroGLYCERIN DRIP 25,000 MCG/250 ML BTL IV SCH ×2 (01:00→03:00)
[2022-07-24] MEDS ORDERED: Albuterol HFA INHALER 8 gm MDI INH PRN (01:32)
[2022-07-24] MEDS ORDERED: Enoxaparin 40 MG/0.4 ML SYR SUBCUT SCH (02:00)
[2022-07-24] MEDS ORDERED: Al Hydrox/Mg Hydrox/Simet LIQ 30 ML UDC PO PRN (02:06)
[2022-07-24] MEDS ORDERED: Lidocaine 2.5%/Prilocain 2.5% 5 GM TUBE TOPICAL ONE (02:29)
[2022-07-24] MEDS ORDERED: Heparin DRIP 25,000 UNITS BAG 25,000 UNITS/500 ML BAG IV SCH (02:30)
[2022-07-24 02:45] LABS: Urine Appearance Clear; Urine Bilirubin Negative (Negative); Urine Blood 1+ (Negative); Urine Color Straw; Urine Glucose Negative (Negative); Urine Ketones Negative (Negative); Urine Nitrite Negative (Negative); Urine Protein 1+(30 mg/dL) (Negative); Urine Specific Gravity 1.015 (1.002-1.030); Urine Urobilinogen Negative (Negative)
[2022-07-24 02:48] LABS: Urine Bacteria Absent (Absent); Urine Red Blood Cell Trace(0-2/hpf) (Absent); Urine White Blood Cell Absent (Absent)
[2022-07-24] MEDS ORDERED: Heparin 5000 UNITS/ML 1 mL VIAL IV SCH (03:00)
[2022-07-24] MEDS ORDERED: Lidocaine 4% CREAM (LMX) 5 GM TUBE TOPICAL ONE (03:00)
[2022-07-24 03:20] LABS: Urine Benzodiazepine Screen None Detected (None Detect); Urine Cannabinoids Screen None Detected (None Detect); Urine Opiates Screen None Detected (None Detect)
[2022-07-24] MEDS ORDERED: Lidocaine 1% MPF 5 ML VIAL INJ ONE (05:44)
[2022-07-24] MEDS: oxyCODONE SR 15 mg TAB PO SCH ×2 (08:04→21:01)
[2022-07-24] MEDS ORDERED: Ondansetron 4 mg VIAL 2 MG/ML 2 ml VIAL IV PRN (08:21)
[2022-07-24] MEDS: Venlafaxine XR 75 mg PO SCH (08:39)
[2022-07-24] MEDS: Aspirin EC 81 mg TAB.EC (enteric coated) PO SCH (08:39)
[2022-07-24] MEDS ORDERED: Aspirin EC 81 mg TAB.EC (enteric coated) PO SCH (09:00)
[2022-07-24] MEDS ORDERED: Labetalol IV 5 MG/ML 20 ml VIAL IV PUSH PRN (09:49)
[2022-07-24] MEDS ORDERED: Calcium Carb (TUMS) 500 mg CHEW TAB PO ONE (10:42)
[2022-07-24] MEDS ORDERED: Lidocaine 1% MPF 2 ML VIAL INJ ONE (15:00)
[2022-07-25] MEDS: Enoxaparin 40 MG/0.4 ML SYR SUBCUT SCH (05:15)
[2022-07-25 05:44] LABS: ABS Eosinophils 0.2 10^3/ul (0-0.6); ABS Lymphocytes 1.2 10^3/ul (1.0-4.8); ABS Monocytes 0.4 10^3/ul (0-0.8); ABS Neutrophils 2.8 10^3/ul (1.5-7.7); Eosinophil % 4.3 %; Hematocrit 37 % (42-52); Lymphocyte % 26.6 %; Mean Corpuscular HGB Conc 33 g/dL (31-36); Mean Corpuscular Hemoglobin 31 pg (27-31); Mean Corpuscular Volume 95 fL (80-94); Mean Platelet Volume 7.6 fL (7.4-10.4); Platelet Count 294 10^3/uL (150-450); Red Blood Count 3.91 10^6 /uL (4.18-5.48); Red Cell Distribution Width 16 % (10-15); White Blood Count 4.6 10^3/uL (3.5-10.8)
[2022-07-25 06:08] LABS: Calcium 9.5 mg/dL (8.6-10.3); Creatinine, Serum 1.09 mg/dL (0.67-1.17); eGFR CKD-EPI 72.6 (>60)
[2022-07-25] MEDS: Aspirin EC 81 mg TAB.EC (enteric coated) PO SCH (09:21)
[2022-07-25] MEDS: Venlafaxine XR 75 mg PO SCH (09:21)
[2022-07-25] MEDS: oxyCODONE SR 15 mg TAB PO SCH ×2 (09:21→21:40)
[2022-07-26] MEDS: Enoxaparin 40 MG/0.4 ML SYR SUBCUT SCH (05:16)
[2022-07-26 05:42] LABS: ABS Eosinophils 0.2 10^3/ul (0-0.6); ABS Lymphocytes 1.3 10^3/ul (1.0-4.8); ABS Monocytes 0.5 10^3/ul (0-0.8); ABS Neutrophils 3.5 10^3/ul (1.5-7.7); Hematocrit 34 % (42-52); Hemoglobin 10.8 g/dL (14.0-18.0); Lymphocyte % 23.1 %; Mean Corpuscular HGB Conc 32 g/dL (31-36); Mean Corpuscular Hemoglobin 30 pg (27-31); Mean Corpuscular Volume 95 fL (80-94); Mean Platelet Volume 7.7 fL (7.4-10.4); Platelet Count 252 10^3/uL (150-450); Red Blood Count 3.57 10^6 /uL (4.18-5.48); Red Cell Distribution Width 16 % (10-15); White Blood Count 5.5 10^3/uL (3.5-10.8)
[2022-07-26 06:23] LABS: Calcium 9.3 mg/dL (8.6-10.3); Creatinine, Serum 0.89 mg/dL (0.67-1.17); Potassium 4.2 mmol/L (3.5-5.0); eGFR CKD-EPI 91.6 (>60)
[2022-07-26 07:09] VITALS: BP 102/63
[2022-07-26] MEDS: oxyCODONE SR 15 mg TAB PO SCH (09:05)
[2022-07-26] MEDS: Venlafaxine XR 75 mg PO SCH (09:05)
[2022-07-26] MEDS: Aspirin EC 81 mg TAB.EC (enteric coated) PO SCH (09:05)
== END 2022-07-26 14:00 | disposition home or self-care (01) ==
LOC: ED 18:05 → INTOOBSV 07-24 00:43 → EDHOLD 07-24 00:43 → SUATTDRO 07-24 00:43 → ICU 07-24 01:28 → MED 07-25 04:58
PROVIDERS: ADMIT Surgery Surgical Critical Care; ATTEND Student in an Organized Health Care Education/Training Program

== ENCOUNTER 2023-01-11 16:30 | Inpatient (IN) ==
[2023-01-11] MEDS ORDERED: Albuterol HFA INHALER 8 gm MDI INH PRN (16:57)
[2023-01-11] MEDS ORDERED: Ondansetron ODT 4 mg TAB 4 MG TAB PO PRN (17:06)
[2023-01-11] MEDS: oxyCODONE SR 10 mg TAB PO SCH (20:15)
[2023-01-11] MEDS: Enoxaparin 40 MG/0.4 ML SYR SUBCUT SCH (20:19)
[2023-01-11] MEDS: Ammonium Lactate 12% 1 APPLIC TUBE TOPICAL SCH (20:19)
[2023-01-12] MEDS: oxyCODONE SR 10 mg TAB PO SCH ×2 (07:34→19:56)
[2023-01-12] MEDS: DULoxetine DR 60 mg CAP PO SCH (10:39)
[2023-01-12] MEDS: Cholecalciferol (VIT D3) 1,000 unit TAB PO SCH (10:42)
[2023-01-12] MEDS: Ammonium Lactate 12% 1 APPLIC TUBE TOPICAL SCH ×2 (10:52→20:00)
[2023-01-12] MEDS: Enoxaparin 40 MG/0.4 ML SYR SUBCUT SCH (19:58)
[2023-01-13] MEDS: oxyCODONE SR 10 mg TAB PO SCH ×2 (08:55→20:49)
[2023-01-13] MEDS: Ammonium Lactate 12% 1 APPLIC TUBE TOPICAL SCH ×2 (08:55→21:02)
[2023-01-13] MEDS: Cholecalciferol (VIT D3) 1,000 unit TAB PO SCH (08:56)
[2023-01-13] MEDS: DULoxetine DR 60 mg CAP PO SCH (08:56)
[2023-01-13] MEDS ORDERED: Lidocaine PATCH 4% 1 EA TOPICAL PRN (19:36)
[2023-01-13] MEDS: Enoxaparin 40 MG/0.4 ML SYR SUBCUT SCH (21:02)
[2023-01-14] MEDS: DULoxetine DR 60 mg CAP PO SCH (08:37)
[2023-01-14] MEDS: Cholecalciferol (VIT D3) 1,000 unit TAB PO SCH (08:39)
[2023-01-14] MEDS: oxyCODONE SR 10 mg TAB PO SCH (08:40)
[2023-01-14] MEDS ORDERED: Senna TAB 8.6 mg TAB PO PRN (09:52)
[2023-01-14 10:11] VITALS: BP 143/56
[2023-01-14] MEDS: Ammonium Lactate 12% 1 APPLIC TUBE TOPICAL SCH (10:48)
== END 2023-01-14 17:04 | disposition short-term general hospital (02) | DRG 181 ==
LOC: MEDTELE 16:32
PROVIDERS: ADMIT Internal Medicine; ATTEND Internal Medicine

== ENCOUNTER 2023-01-16 17:04 | Inpatient (IN) ==
[2023-01-16] MEDS ORDERED: Ondansetron ODT 4 mg TAB 4 MG TAB PO PRN (17:21)
[2023-01-16] MEDS ORDERED: Lidocaine 4% CREAM (LMX) 5 GM TUBE TOPICAL PRN (17:21)
[2023-01-16] MEDS ORDERED: Naloxone Nasal Spray 4 MG/0.1 ML NASAL.SPR INTRANASAL PRN (17:21)
[2023-01-16] MEDS: oxyCODONE SR 10 mg TAB PO SCH (19:54)
[2023-01-16] MEDS: oxyCODONE SR 20 mg TAB PO SCH ×2 (19:54→21:00)
[2023-01-16] MEDS: Enoxaparin 40 MG/0.4 ML SYR SUBCUT SCH (20:49)
[2023-01-17] MEDS: Cholecalciferol (VIT D3) 1,000 unit TAB PO SCH (08:53)
[2023-01-17] MEDS: oxyCODONE SR 10 mg TAB PO SCH ×2 (08:58→20:19)
[2023-01-17] MEDS: oxyCODONE SR 20 mg TAB PO SCH ×2 (08:59→20:20)
[2023-01-17] MEDS: DULoxetine DR 60 mg CAP PO SCH (09:02)
[2023-01-17] MEDS: Enoxaparin 40 MG/0.4 ML SYR SUBCUT SCH (17:43)
[2023-01-17] MEDS: Albuterol HFA INHALER 8 gm MDI INH PRN (20:24)
[2023-01-17] MEDS: Lidocaine PATCH 4% TOPICAL PRN (20:28)
[2023-01-18] MEDS: oxyCODONE SR 20 mg TAB PO SCH ×2 (09:19→20:40)
[2023-01-18] MEDS: DULoxetine DR 60 mg CAP PO SCH (09:21)
[2023-01-18] MEDS: Cholecalciferol (VIT D3) 1,000 unit TAB PO SCH (09:23)
[2023-01-18] MEDS: oxyCODONE SR 10 mg TAB PO SCH (09:24)
[2023-01-18] MEDS: CMC:Mirabegron 25 mg ER TAB (NF) PO SCH (15:32)
[2023-01-18] MEDS: Enoxaparin 40 MG/0.4 ML SYR SUBCUT SCH (17:47)
[2023-01-18] MEDS: oxyCODONE SR 15 mg TAB PO SCH (20:40)
[2023-01-19] MEDS: DULoxetine DR 60 mg CAP PO SCH (07:57)
[2023-01-19] MEDS: oxyCODONE SR 20 mg TAB PO SCH ×2 (07:59→20:36)
[2023-01-19] MEDS: oxyCODONE SR 15 mg TAB PO SCH ×2 (07:59→20:37)
[2023-01-19] MEDS: Cholecalciferol (VIT D3) 1,000 unit TAB PO SCH (08:00)
[2023-01-19] MEDS: CMC:Mirabegron 25 mg ER TAB (NF) PO SCH (08:09)
[2023-01-19] MEDS: Lidocaine PATCH 4% TOPICAL PRN (16:51)
[2023-01-19] MEDS: Enoxaparin 40 MG/0.4 ML SYR SUBCUT SCH (17:30)
[2023-01-20] MEDS: CMC:Mirabegron 25 mg ER TAB (NF) PO SCH (07:52)
[2023-01-20] MEDS: oxyCODONE SR 20 mg TAB PO SCH ×2 (07:53→21:20)
[2023-01-20] MEDS: oxyCODONE SR 15 mg TAB PO SCH ×2 (07:53→21:19)
[2023-01-20] MEDS: Cholecalciferol (VIT D3) 1,000 unit TAB PO SCH (07:54)
[2023-01-20] MEDS: DULoxetine DR 60 mg CAP PO SCH (07:55)
[2023-01-20] MEDS: Ammonium Lactate 12% 1 APPLIC TUBE TOPICAL SCH ×2 (09:00→21:24)
[2023-01-20] MEDS: Enoxaparin 40 MG/0.4 ML SYR SUBCUT SCH (18:28)
[2023-01-21] MEDS: oxyCODONE SR 20 mg TAB PO SCH ×2 (09:00→20:46)
[2023-01-21] MEDS: DULoxetine DR 60 mg CAP PO SCH (09:01)
[2023-01-21] MEDS: Cholecalciferol (VIT D3) 1,000 unit TAB PO SCH (09:01)
[2023-01-21] MEDS: CMC:Mirabegron 25 mg ER TAB (NF) PO SCH (09:02)
[2023-01-21] MEDS: oxyCODONE SR 15 mg TAB PO SCH ×2 (09:02→20:47)
[2023-01-21] MEDS: Ammonium Lactate 12% 1 APPLIC TUBE TOPICAL SCH ×2 (09:03→20:50)
[2023-01-21] MEDS: Enoxaparin 40 MG/0.4 ML SYR SUBCUT SCH (20:37)
[2023-01-22 06:27] LABS: ABS Basophils 0.1 10^3/uL (0.0-0.1); ABS Eosinophils 0.4 10^3/uL (0.0-0.5); ABS Lymphocytes 0.8 10^3/uL (1.0-4.8); ABS Monocytes 0.7 10^3/uL (0.0-1.1); ABS Neutrophils 5.2 10^3/uL (1.5-7.6); Eosinophil % 5.3 %; Hematocrit 26.4 % (38-53); Hemoglobin 8.9 g/dL (13.2-16.3); Lymphocyte % 11.7 %; Mean Corpuscular Hemoglobin 31.6 pg (27-33); Mean Corpuscular Hgb Conc 33.9 g/dL (31-36); Mean Corpuscular Volume 93.3 fL (80-97); Mean Platelet Volume 7.1 fL (7.5-11.2); Platelet Count 428 10^3/uL (150-450); Red Blood Count 2.83 10^6/uL (4.06-5.63); Red Cell Distribution Width 16.4 % (12-17); White Blood Count 7.2 10^3/uL (3.6-10.2)
[2023-01-22] MEDS: Cholecalciferol (VIT D3) 1,000 unit TAB PO SCH (09:41)
[2023-01-22] MEDS: DULoxetine DR 60 mg CAP PO SCH (09:41)
[2023-01-22] MEDS: oxyCODONE SR 15 mg TAB PO SCH ×2 (09:44→20:37)
[2023-01-22] MEDS: oxyCODONE SR 20 mg TAB PO SCH ×2 (09:45→20:37)
[2023-01-22] MEDS: CMC:Mirabegron 25 mg ER TAB (NF) PO SCH (09:46)
[2023-01-22] MEDS: Ammonium Lactate 12% 1 APPLIC TUBE TOPICAL SCH ×2 (09:46→20:43)
[2023-01-22] MEDS: Albuterol HFA INHALER 8 gm MDI INH PRN (12:30)
[2023-01-22] MEDS: Enoxaparin 40 MG/0.4 ML SYR SUBCUT SCH (18:04)
[2023-01-23] MEDS: oxyCODONE SR 20 mg TAB PO SCH ×2 (09:04→21:47)
[2023-01-23] MEDS: oxyCODONE SR 15 mg TAB PO SCH ×2 (09:05→21:47)
[2023-01-23] MEDS: Cholecalciferol (VIT D3) 1,000 unit TAB PO SCH (09:06)
[2023-01-23] MEDS: CMC:Mirabegron 25 mg ER TAB (NF) PO SCH (09:07)
[2023-01-23] MEDS: DULoxetine DR 60 mg CAP PO SCH (09:07)
[2023-01-23] MEDS: Ammonium Lactate 12% 1 APPLIC TUBE TOPICAL SCH ×2 (09:13→21:49)
[2023-01-23] MEDS: Enoxaparin 40 MG/0.4 ML SYR SUBCUT SCH (21:46)
[2023-01-24] MEDS: Cholecalciferol (VIT D3) 1,000 unit TAB PO SCH (09:11)
[2023-01-24] MEDS: DULoxetine DR 60 mg CAP PO SCH (09:11)
[2023-01-24] MEDS: oxyCODONE SR 20 mg TAB PO SCH ×2 (09:13→21:07)
[2023-01-24] MEDS: oxyCODONE SR 15 mg TAB PO SCH ×2 (09:13→21:07)
[2023-01-24] MEDS: CMC:Mirabegron 25 mg ER TAB (NF) PO SCH (09:18)
[2023-01-24] MEDS: Ammonium Lactate 12% 1 APPLIC TUBE TOPICAL SCH ×2 (09:19→21:08)
[2023-01-24] MEDS: Enoxaparin 40 MG/0.4 ML SYR SUBCUT SCH (17:39)
[2023-01-25] MEDS: DULoxetine DR 60 mg CAP PO SCH ×2 (09:45→16:42)
[2023-01-25] MEDS: oxyCODONE SR 20 mg TAB PO SCH ×3 (09:46→22:13)
[2023-01-25] MEDS: Cholecalciferol (VIT D3) 1,000 unit TAB PO SCH ×2 (09:49→16:42)
[2023-01-25] MEDS: oxyCODONE SR 15 mg TAB PO SCH ×3 (09:50→22:11)
[2023-01-25] MEDS: Ammonium Lactate 12% 1 APPLIC TUBE TOPICAL SCH ×2 (16:41→22:23)
[2023-01-25] MEDS: CMC:Mirabegron 25 mg ER TAB (NF) PO SCH (16:43)
[2023-01-25] MEDS: Lidocaine PATCH 4% TOPICAL PRN (16:59)
[2023-01-25] MEDS: Enoxaparin 40 MG/0.4 ML SYR SUBCUT SCH (18:44)
[2023-01-25] MEDS: Albuterol HFA INHALER 8 gm MDI INH PRN (22:45)
[2023-01-26] MEDS: Cholecalciferol (VIT D3) 1,000 unit TAB PO SCH (09:33)
[2023-01-26] MEDS: DULoxetine DR 60 mg CAP PO SCH (09:33)
[2023-01-26] MEDS: oxyCODONE SR 20 mg TAB PO SCH ×2 (09:35→19:58)
[2023-01-26] MEDS: oxyCODONE SR 15 mg TAB PO SCH ×2 (09:36→19:58)
[2023-01-26] MEDS: CMC:Mirabegron 25 mg ER TAB (NF) PO SCH (09:36)
[2023-01-26] MEDS: Ammonium Lactate 12% 1 APPLIC TUBE TOPICAL SCH ×2 (09:37→19:55)
[2023-01-26] MEDS: Enoxaparin 40 MG/0.4 ML SYR SUBCUT SCH (18:36)
[2023-01-26] MEDS: Lidocaine PATCH 4% TOPICAL PRN (18:36)
[2023-01-27] MEDS: oxyCODONE SR 20 mg TAB PO SCH ×2 (09:43→20:39)
[2023-01-27] MEDS: CMC:Mirabegron 25 mg ER TAB (NF) PO SCH (09:43)
[2023-01-27] MEDS: Cholecalciferol (VIT D3) 1,000 unit TAB PO SCH (09:44)
[2023-01-27] MEDS: oxyCODONE SR 15 mg TAB PO SCH ×2 (09:44→20:40)
[2023-01-27] MEDS: DULoxetine DR 60 mg CAP PO SCH (09:44)
[2023-01-27] MEDS: Ammonium Lactate 12% 1 APPLIC TUBE TOPICAL SCH ×2 (09:50→23:02)
[2023-01-27] MEDS: Enoxaparin 40 MG/0.4 ML SYR SUBCUT SCH (18:05)
[2023-01-28] MEDS: oxyCODONE SR 15 mg TAB PO SCH ×2 (09:03→20:38)
[2023-01-28] MEDS: CMC:Mirabegron 25 mg ER TAB (NF) PO SCH (09:03)
[2023-01-28] MEDS: oxyCODONE SR 20 mg TAB PO SCH ×2 (09:05→20:37)
[2023-01-28] MEDS: Ammonium Lactate 12% 1 APPLIC TUBE TOPICAL SCH ×2 (09:06→20:39)
[2023-01-28] MEDS: Cholecalciferol (VIT D3) 1,000 unit TAB PO SCH (09:06)
[2023-01-28] MEDS: DULoxetine DR 60 mg CAP PO SCH (09:06)
[2023-01-28] MEDS: Enoxaparin 40 MG/0.4 ML SYR SUBCUT SCH (17:58)
[2023-01-29] MEDS: DULoxetine DR 60 mg CAP PO SCH (08:47)
[2023-01-29] MEDS: oxyCODONE SR 15 mg TAB PO SCH ×2 (08:48→20:58)
[2023-01-29] MEDS: Cholecalciferol (VIT D3) 1,000 unit TAB PO SCH (08:49)
[2023-01-29] MEDS: oxyCODONE SR 20 mg TAB PO SCH ×2 (08:49→20:58)
[2023-01-29] MEDS: CMC:Mirabegron 25 mg ER TAB (NF) PO SCH (08:50)
[2023-01-29] MEDS: Ammonium Lactate 12% 1 APPLIC TUBE TOPICAL SCH ×2 (08:51→20:58)
[2023-01-29] MEDS: Enoxaparin 40 MG/0.4 ML SYR SUBCUT SCH (17:18)
[2023-01-30] MEDS: Cholecalciferol (VIT D3) 1,000 unit TAB PO SCH (08:51)
[2023-01-30] MEDS: oxyCODONE SR 20 mg TAB PO SCH ×2 (08:51→20:49)
[2023-01-30] MEDS: DULoxetine DR 60 mg CAP PO SCH (08:51)
[2023-01-30] MEDS: oxyCODONE SR 15 mg TAB PO SCH ×2 (08:52→20:48)
[2023-01-30] MEDS: CMC:Mirabegron 25 mg ER TAB (NF) PO SCH (08:53)
[2023-01-30] MEDS: Ammonium Lactate 12% 1 APPLIC TUBE TOPICAL SCH ×2 (08:56→20:53)
[2023-01-30] MEDS ORDERED: Naloxone Nasal Spray 4 MG/0.1 ML NASAL.SPR INTRANASAL PRN (15:12)
[2023-01-30] MEDS: Enoxaparin 40 MG/0.4 ML SYR SUBCUT SCH (17:19)
[2023-01-31] MEDS: oxyCODONE SR 20 mg TAB PO SCH ×2 (08:37→21:00)
[2023-01-31] MEDS: Cholecalciferol (VIT D3) 1,000 unit TAB PO SCH (08:37)
[2023-01-31] MEDS: DULoxetine DR 60 mg CAP PO SCH (08:37)
[2023-01-31] MEDS: CMC:Mirabegron 25 mg ER TAB (NF) PO SCH (08:37)
[2023-01-31] MEDS: oxyCODONE SR 15 mg TAB PO SCH ×2 (08:38→21:00)
[2023-01-31] MEDS: Ammonium Lactate 12% 1 APPLIC TUBE TOPICAL SCH ×2 (08:48→21:02)
[2023-01-31] MEDS: Enoxaparin 40 MG/0.4 ML SYR SUBCUT SCH (17:09)
[2023-02-01] MEDS: DULoxetine DR 60 mg CAP PO SCH (08:51)
[2023-02-01] MEDS: oxyCODONE SR 20 mg TAB PO SCH (08:53)
[2023-02-01] MEDS: Cholecalciferol (VIT D3) 1,000 unit TAB PO SCH (08:54)
[2023-02-01] MEDS: oxyCODONE SR 15 mg TAB PO SCH (08:54)
[2023-02-01] MEDS: Ammonium Lactate 12% 1 APPLIC TUBE TOPICAL SCH ×2 (09:04→21:28)
[2023-02-01] MEDS: CMC:Mirabegron 25 mg ER TAB (NF) PO SCH (09:09)
[2023-02-01] MEDS: Enoxaparin 40 MG/0.4 ML SYR SUBCUT SCH (16:16)
[2023-02-02] MEDS ORDERED: oxyCODONE SR 20 mg TAB PO ONE (00:42)
[2023-02-02] MEDS ORDERED: oxyCODONE SR 15 mg TAB PO ONE (00:42)
[2023-02-02] MEDS: Cholecalciferol (VIT D3) 1,000 unit TAB PO SCH (08:46)
[2023-02-02] MEDS: DULoxetine DR 60 mg CAP PO SCH (08:46)
[2023-02-02] MEDS: Ammonium Lactate 12% 1 APPLIC TUBE TOPICAL SCH ×2 (08:52→21:46)
[2023-02-02] MEDS: CMC:Mirabegron 25 mg ER TAB (NF) PO SCH (08:53)
[2023-02-02] MEDS: oxyCODONE SR 15 mg TAB PO SCH ×2 (09:45→21:50)
[2023-02-02] MEDS: oxyCODONE SR 20 mg TAB PO SCH ×2 (09:45→21:50)
[2023-02-02 17:00] LABS: Rapid COVID-19 Molecular Undetected (Undetected)
[2023-02-02] MEDS: Enoxaparin 40 MG/0.4 ML SYR SUBCUT SCH (18:35)
[2023-02-03] MEDS: Albuterol HFA INHALER 8 gm MDI INH PRN (08:30)
[2023-02-03] MEDS: DULoxetine DR 60 mg CAP PO SCH (08:44)
[2023-02-03] MEDS: Cholecalciferol (VIT D3) 1,000 unit TAB PO SCH (08:45)
[2023-02-03] MEDS: oxyCODONE SR 15 mg TAB PO SCH (08:46)
[2023-02-03] MEDS: oxyCODONE SR 20 mg TAB PO SCH (08:46)
[2023-02-03] MEDS: CMC:Mirabegron 25 mg ER TAB (NF) PO SCH (08:47)
[2023-02-03] MEDS: Ammonium Lactate 12% 1 APPLIC TUBE TOPICAL SCH (08:48)
[2023-02-03 12:02] VITALS: BP 134/60
== END 2023-02-03 15:55 | DRG 181 ==
LOC: SUATTDRO 17:04 → MEDTELE 17:04
PROVIDERS: ADMIT Internal Medicine; ATTEND Internal Medicine

== ENCOUNTER → 2023-01-16 17:10 | Observation (INO) ==
[2023-01-14] MEDS: oxyCODONE SR 10 mg TAB PO SCH (21:07)
[2023-01-14] MEDS: Enoxaparin 40 MG/0.4 ML SYR SUBCUT SCH (21:09)
[2023-01-15 06:37] LABS: Hematocrit 24.9 % (38-53); Hemoglobin 8.4 g/dL (13.2-16.3); Mean Corpuscular Hemoglobin 32.1 pg (27-33); Mean Corpuscular Hgb Conc 33.7 g/dL (31-36); Mean Corpuscular Volume 95.3 fL (80-97); Mean Platelet Volume 7.3 fL (7.5-11.2); Platelet Count 379 10^3/uL (150-450); Red Blood Count 2.62 10^6/uL (4.06-5.63); Red Cell Distribution Width 16.1 % (12-17); White Blood Count 9.8 10^3/uL (3.6-10.2)
[2023-01-15 06:54] LABS: Calcium 9.2 mg/dL (8.6-10.3); Creatinine, Serum 0.68 mg/dL (0.67-1.17); Potassium 4.7 mmol/L (3.5-5.0); eGFR CKD-EPI 99.4 (>60)
[2023-01-15 07:04] LABS: ABS Basophils 0.1 10^3/uL (0.0-0.1); ABS Eosinophils 0.4 10^3/uL (0.0-0.5); ABS Lymphocytes 1.4 10^3/uL (1.0-4.8); ABS Monocytes 0.7 10^3/uL (0.0-1.1); ABS Neutrophils 7.1 10^3/uL (1.5-7.6); Eosinophil % 4.6 %; Lymphocyte % 14.1 %
[2023-01-15] MEDS: oxyCODONE SR 10 mg TAB PO SCH ×2 (09:22→22:13)
[2023-01-15] MEDS: DULoxetine DR 60 mg CAP PO SCH (09:24)
[2023-01-15] MEDS: Cholecalciferol (VIT D3) 1,000 unit TAB PO SCH (09:25)
[2023-01-15] MEDS: Enoxaparin 40 MG/0.4 ML SYR SUBCUT SCH (22:14)
[2023-01-16] MEDS: Cholecalciferol (VIT D3) 1,000 unit TAB PO SCH (09:45)
[2023-01-16] MEDS: oxyCODONE SR 10 mg TAB PO SCH (09:45)
[2023-01-16] MEDS: DULoxetine DR 60 mg CAP PO SCH (09:46)
[2023-01-16 16:14] VITALS: BP 100/50
[~2023-01-16 17:10] MED LIST changes: +Albuterol HFA INHALER 8 gm MDI INH PRN; -Buffered Lidocaine 0.9% SYRIN* 5 ML/SYR SYRINGE INTRADERM ONE; +Lidocaine 4% CREAM (LMX) 5 GM TUBE TOPICAL PRN; +Lidocaine PATCH 4% TOPICAL PRN; +Lidocaine PATCH 5% PATCH TRANSDERM ONE; +Ondansetron ODT 4 mg TAB 4 MG TAB PO PRN
== END | disposition swing bed (61) ==
LOC: MEDTELE
PROVIDERS: ADMIT Internal Medicine; ATTEND Internal Medicine